=== PATIENT | female | born 1980 | race Caucasian/White ===

== ENCOUNTER 2019-11-19 20:01 | Emergency (ER) | payer MEDICAID, SELFPAY ==
[2019-11-19 20:03] VITALS: BP 132/102; PULSE 91; RESP 20; TEMP 36.7; O2SAT 98; BMI 33.8
--- NOTE | 2019-11-19 20:19 | XRR_ITS ---
PROCEDURE INFORMATION: Exam: XR Chest, 1 View Exam date and time: 11/19/2019 8:27 PM Age: 39 years old Clinical indication: Chest pain; Patient HX: PT C/O chest tightness, shooting pain to lt arm, headache; Additional info: Admission TECHNIQUE: Imaging protocol: XR of the chest Views: 1 view. COMPARISON: No relevant prior studies available. FINDINGS: Lungs: Unremarkable. No consolidation. Pleural space: Unremarkable. No pleural effusion. No pneumothorax. Heart/Mediastinum: Unremarkable. No cardiomegaly. Bones/joints: Unremarkable. XR/XR chest 1V portable [id number] IMPRESSION: No acute findings.
--- NOTE | 2019-11-19 20:19 | ECG_ITS ---
Measurements Intervals [place] Rate: 93 P: 38 IL: 146 QRS: 6 QRSD: 84 T: 39 QT: 366 QTc: 455 SINUS RHYTHM POSSIBLE ANTERIOR MYOCARDIAL INFARCTION [30 ms Q WAVE IN V3/V4, OR R < 0.2 mV IN V V4], PROBABLY OLD INTERPRETATION BASED ON A DEFAULT AGE OF 40 YEARS No previous ECG available for comparison Electronically Signed On 11-20-2019 9:24:12 OPHTHALMOLOGY TECHNICIAN by Rony Mayfield M.D. [email or web address]
--- NOTE | 2019-11-19 20:22 | W.ED.CHESTPA ---
HPI - Chest Pain General: Chief Complaint: Chest Pain Stated Complaint: CHEST TIGHTNESS/L ARM PAIN Time Seen by Provider: 11/19/19 20:14 History of Present Illness: HPI narrative: Patient complains about pain in upper left chest over the last couple hours denies any reflux heartburn or shortness of breath or diaphoresis. Patient just recently diagnosed with diabetes. Started metformin last week. MD complaint: chest pain Onset (ago): hour(s) Timing of current episode: constant Prior episodes: No Onset: during rest Pain location: left chest Pain radiation: left arm Quality: aching Relieving factors: nothing Context: recent illness Associated symptoms: Reports no associated symptoms; Deny abdominal pain, dyspnea, fever(s), nausea or vomiting Review of Systems Const: Denies: fever, chills or body aches Eyes: Denies: change in vision or blurry vision ENMT: Denies: throat pain or nasal congestion Card: Reports: chest pain; Denies: shortness of breath on exertion Resp: Denies: shortness of breath, productive cough or non-productive cough GI: Denies: abdominal pain, nausea or vomiting Musc: Denies: extremity pain Skin/Breast: Denies: rash Neuro: Denies: headache Psych: Denies: anxiety or depression Edd/Lymph: Denies: easy bruising PFSH ED PFSH: Statuses (acute, chronic, etc) shown below reflect problem list status as previously entered and may not be historically accurate Social History Smoking and tobacco status: never smoked Physical Exam Const: COMMON NORMALS: no apparent distress, average body habitus and oriented x3 HENMT: COMMON NORMALS: normocephalic HEAD & SCALP: normal to inspection and normocephalic FACE & SINUS: normal facial exam Eye: COMMON NORMALS: conjunctivae normal GENERAL EYE: normal appearance of both eyes CONJUNCTIVA: Yes conjunctivae normal Neck/C-Spine: COMMON NORMALS: no JVD Chest: COMMONS NORMALS: inspection of chest normal CHEST: Yes tenderness (I am able to reproduce the pain over the left substernal notch and into the left arm. With deep palpation) Resp: COMMON NORMALS: normal respiratory effort and clear to auscultation bilaterally AUSCULTATION: clear to auscultation bilaterally Cardio: COMMON NORMALS: no JVD, regular rate and regular rhythm RATE: regular rate RHYTHM: regular rhythm GI: COMMON NORMALS: normal to inspection, nondistended, normoactive bowel sounds Extremity: COMMON NORMALS: normal to inspection and full ROM Neuro: COMMON NORMALS: oriented x3 Course Vital Signs: Vital signs: Vital Signs Temperature 98.0 F 11/19/19 20:03 Pulse Rate 91 11/19/19 20:03 Respiratory Rate 20 H 11/19/19 20:03 Blood Pressure 132/102 11/19/19 20:03 Pulse Oximetry 98 11/19/19 20:03 MDM - Chest Pain EKG Data^: EKG 1: EKG interpretation date: 11/19/19 EKG interpretation time: 20:05 Interpretation: Rvwd by Dr. Gross. SR. IL 146ms, QRS 84ms, 93bpm Discharge Plan Discharge Prescriptions: No Action lamotrigine 150 mg Tablet 150 mg PO DAILY RF: 0 aripiprazole 5 mg Tablet 5 mg PO DAILY RF: 0 metformin 500 mg Tablet 500 mg PO BID RF: 0 Coding Level of Care Code ED Associate Java Developer for Chg Fwd Exam Problem Focused
[2019-11-19] MEDS: ketorolac 60 mg/2 mL INJ IM (20:36)
[2019-11-19 20:49] LABS: Basophils # 0.1 10^3/uL (0.0-0.1); Basophils % 0.7 %; Eosinophils # 0.2 10^3/uL (0.0-0.8); Eosinophils % 2.2 %; Hematocrit 38.6 % (37.0-47.0); Hemoglobin 12.4 g/dL (11.5-15.3); Lymphocytes # 2.6 10^3/uL (0.8-4.8); Lymphocytes % 31.6 %; Mean Corpuscular HGB Conc 32.1 g/dL (30.0-36.0); Mean Corpuscular Hemoglobin 27.4 pg (28.0-34.0); Mean Corpuscular Volume 85.2 fL (81-99); Monocytes # 0.5 10^3/uL (0.2-0.9); Monocytes % 5.8 %; Neutrophils # 4.8 10^3/uL (1.8-7.7); Neutrophils % 59.3 %; Nucleated Red Blood Cells % 0 %; Platelet Count 313 10^3/cmm (130-400); Red Blood Count 4.53 10^6/uL (4.1-5.3); Red Cell Distribution Width 13.2 % (12.1-15.1); White Blood Count 8.2 10^3/uL (4.0-10.0)
[2019-11-19 21:07] LABS: Alanine Aminotransferase 37 U/L (0-33); Albumin Level 4.5 g/dL (3.5-5.2); Alkaline Phosphatase 63 IU/L (35-105); Anion Gap 18.8 (5-19); Aspartate Amino Transferase 33 U/L (0-32); Blood Urea Nitrogen 10 mg/dL (6-20); Calcium 9.8 mg/Dl (8.6-10.0); Carbon Dioxide 23 mmol/L (22-29); Chloride 100 mmol/L (98-107); Globulin 2.9 g/dL (1.3-4.6); Glomerular Filtration Rate 112.5 mL/min (90-130); Glucose 121 mg/dL (74-109); Potassium 3.8 mmol/L (3.5-5.1); Sodium 138 mmol/L (136-145); Total Bilirubin 0.2 mg/dL (0.15-1.2); Total Protein 7.4 g/dL (6.6-8.7)
[2019-11-19 21:41] LABS: Troponin T (5th) Once 6 ng/mL (0-10)
[2019-11-19 23:00] VITALS: BP 103/64; PULSE 86; RESP 18; O2SAT 96
== END 2019-11-19 22:30 | disposition home or self-care (01) ==
PROVIDERS: Emergency Provider Nurse Practitioner Family; Family Provider Family Medicine
DX: R07.9 Chest pain, unspecified (principal); Z79.84 Long term (current) use of oral hypoglycemic drugs
CPT/HCPCS: 71045; 80053; 84484; 85025; 93005; 96372; 99281; J1885

== ENCOUNTER → 2019-12-05 07:52 | Outpatient (BNVA) | payer MEDICAID, SELFPAY | PROVIDERS: Family Provider Family Medicine; Visit Provider Nurse Practitioner Psychiatric/Mental Health | DX: F31.81 Bipolar II disorder (principal) | CPT/HCPCS: 99213 ==

== ENCOUNTER → 2020-02-02 07:33 | Outpatient (BNVA) | payer MEDICAID, SELFPAY | PROVIDERS: Family Provider Family Medicine; Visit Provider Nurse Practitioner Psychiatric/Mental Health | DX: F31.81 Bipolar II disorder (principal); F43.12 Post-traumatic stress disorder, chronic | CPT/HCPCS: 99213 ==

== ENCOUNTER → 2020-03-15 07:22 | Outpatient (BNVA) | payer MEDICAID, SELFPAY | PROVIDERS: Family Provider Family Medicine; Visit Provider Nurse Practitioner Psychiatric/Mental Health | DX: F31.81 Bipolar II disorder (principal) | CPT/HCPCS: 99212 ==

== ENCOUNTER → 2020-04-10 07:49 | Outpatient (BNVA) | payer BC, MEDICAID, SELFPAY | PROVIDERS: Family Provider Family Medicine; Visit Provider Nurse Practitioner Psychiatric/Mental Health | DX: F31.81 Bipolar II disorder (principal) | CPT/HCPCS: 99213 ==

== ENCOUNTER 2020-04-18 19:18 | Emergency (ER) | payer BC, MEDICAID, SELFPAY ==
[2020-04-18 19:28] VITALS: BP 150/97; PULSE 88; RESP 16; TEMP 36.7; O2SAT 97
--- NOTE | 2020-04-18 19:58 | ED_ITS ---
HPI - Headache General: Chief Complaint: Headache Stated Complaint: diabetic/headache Time Seen by Provider: 04/18/20 19:49 Source: patient Mode of arrival: ambulatory Limitations: no limitations History of Present Illness: HPI Narrative: Guerrero is a very nice 40-year-old female who comes in complaining of a headache that has been going on throughout the day. She is uncertain of how the headache started but it woke up this morning and has been present throughout the day. It is not incapacitated her and she has been able to carry out her activities of daily living without any difficulty. Headache is been more annoying than anything. She describes the pain as a dull ache located in the forehead and bitemporal areas. She has no associated nausea or vomiting. She did try some ibuprofen and Aleve for this but nothing seems to make it better. Bright lights and having to move very quickly does make it worse. She denies any neck pain or stiffness, she denies fevers and chills and she is had no nausea or vomiting. She has a history of migraines and she states this somewhat feels like that but is also a little different. She has had worse migraines for this as far as pain goes in the past. Associated symptoms: Deny chest pain, confusion, diaphoresis, fever(s), lightheadedness, malaise, nausea, pre-syncope, rash, syncope or vomiting Review of Systems Const: Denies: fever(s), chills, body aches, fatigue, malaise or diaphoresis Eyes: Denies: change in vision, blurry vision, blind spots, photophobia, eye discharge or eye redness ENMT: Denies: throat pain, odynophagia, hoarseness, swelling of lips/tongue, oral sores, ear or mastoid pain, ear discharge, change in hearing or nasal discharge Card: Denies: chest pain, palpitations, irregular heart rhythm, edema, lightheadedness, syncope, pre-syncope, dyspnea on exertion or orthopnea Resp: Denies: dyspnea, productive cough, non-productive cough, wheezing, hemoptysis or chest congestion GI: Denies: abdominal pain, nausea, vomiting, hematemesis, coffee ground emesis, heartburn, diarrhea, constipation, GI cramping, hematochezia or melena : Denies: flank pain, dysuria, urinary frequency, urinary urgency or hematuria Musc: Denies: neck pain, back pain, extremity pain, extremity swelling, joint pain, joint swelling, joint redness, joint warmth or joint stiffness Skin/Breast: Denies: rash, pruritus, erythema, skin tenderness or jaundice Neuro: Reports: headache(s); Denies: numbness in extremities, weakness in extremities, sensory changes, lack of coordination, difficulty walking, dizziness, vertigo, confusion, Slurred speech present or seizure-like activity Edd/Lymph: Denies: easy bruising, easy bleeding, petechiae, purpura or enlarged lymph nodes All/Imm: Denies: urticaria, throat swelling, tongue swelling, facial swelling or acute wheezing PFSH ED PFSH: Medical History (Updated 04/18/20 @ 22:10 by Belkis Gross) Bipolar II disorder See subjective information below. DM type 2 (diabetes mellitus, type 2) Laura filter in place Migraines Pulmonary embolism Social History Smoking and tobacco status: never smoked Physical Exam Const: COMMON NORMALS: no acute distress, patient oriented x3, no limitations, healthy appearing and well nourished GENERAL APPEARANCE: cooperative, well kempt and well developed HENMT: COMMON NORMALS: normocephalic, atraumatic, external ears normal, EAC's normal and Normal external nose present HEAD & SCALP: normal to inspection, normocephalic and atraumatic FACE & SINUS: normal facial exam and face symmetric NOSE: Normal external nose present and Normal nares present EXTERNAL EAR: Yes external ears normal EXTERNAL AUDITORY CANAL: EAC's normal MOUTH: Normal oral and palatal mucosa present, lip normal and tongue normal Eye: COMMON NORMALS: Equal, round and reactive pupils present and conjunctivae normal GENERAL EYE: appearance normal, both eyes and all related structures ALIGNMENT: Yes alignment normal PERIORBITAL: periorbital findings normal EYELID: eyelids normal CONJUNCTIVA: Yes conjunctivae normal SCLERA: sclerae normal PUPIL: Yes Equal, round and reactive pupils present Neck/C-Spine: COMMON NORMALS: full ROM, no lymphadenopathy, supple, no meningeal signs and no JVD GENERAL: Yes normal visual inspection and Yes trachea midline Chest: COMMONS NORMALS: normal inspection of the chest and normal palpation of entire chest wall Resp: COMMON NORMALS: normal respiratory effort, No retractions and No use of accessory muscles EFFORT & INSPECTION: Yes able to speak in complete sentences and Yes symmetric chest movement AUSCULTATION: no crackles, no rale s, no rhonchi and no wheezes Cardio: COMMON NORMALS: no JVD, regular rate, regular rhythm, S1 normal heart sound present and S2 normal heart sound present RATE: regular rate RHYTHM: regular rhythm HEART SOUNDS: S1 normal heart sound present, S2 normal heart sound present, no click, no gallops, no murmurs, no rubs and abnormal split S2 GI: COMMON NORMALS: Soft to palpation and No hepatosplenomegaly present PALPATION: Yes Soft to palpation, No Tenderness to palpation present (GI), No Guarding due to palpation present (GI), No Rigid due to palpation, Yes No hepatosplenomegaly present, No Hernia present, No Palpable mass present and No Pulsatile mass present : COMMON NORMALS: Yes no CVA tenderness BLADDER/KIDNEY EXAM: Yes no CVA tenderness EXTERNAL FEMALE EXAM: No Hernia present Back/Pelvis: COMMON NORMALS: no CVA tenderness, thoracic and lumbar spine normal to inspection, no thoracic nor lumbar tenderness and thoraco-lumbar ROM normal Extremity: COMMON NORMALS: normal to inspection, full ROM, capillary refill normal, no joint enlargement, no clubbing, cyanosis or edema and no calf tendern ess Neuro: COMMON NORMALS: patient oriented x3, CN's II-XII intact bilaterally, moves all extremities, no focal motor deficits and no sensory deficits noted MENINGEAL SIGNS: Yes no meningeal signs SPEECH: speech normal Psych: COMMON NORMALS: mental status grossly normal, Normal thought process present, cooperative, normal affect, speech normal and activity/motor behavior normal APPEARANCE: Yes well kempt SPEECH: Yes normal speech THOUGHT PROCESS: Normal thought process present Skin: COMMON NORMALS: no rashes or lesions noted, turgor normal, no jaundice, no petechiae and no mottling GENERAL SKIN EXAM: no rashes or lesions noted and turgor normal Course Vital Signs: Vital signs: Vital Signs Temperature 98.0 F 04/18/20 19:28 Pulse Rate 88 04/18/20 19:28 Respiratory Rate 16 04/18/20 19:28 Blood Pressure 116/85 04/18/20 22:40 Pulse Oximetry 97 04/18/20 22:40 MDM - Headache MDM Narrative: Medical decision making narrative: Sukhdev Masters is a nice 40-year-old female who comes in complaining of a headache that is moderate in nature but a change for her typical headache pattern. She shows no sign of meningitis by history. Her history does not suggest subarachnoid hemorrhage or meningitis. Because the patient has had a change in her headache pattern no and it is persisted for this long I will proceed with a head CT and check routine labs. She does seem more concerned about her blood sugar and her diabetes than the headache itself. 2211 -patient is feeling much better and is ready to go home. Her headache is gone or she says down to a 1 or 2. I will give her 1 dose of Toradol to help eliminate her headache. I see no sign of DKA, meningitis, subarachnoid hemorrhage or pseudotumor cerebri. The patient declines any further work-up or care. We will go ahead and discharge her home and have her follow-up with her regular doctor. I believe this headache is likely a migraine equivalent. Lab Data: Attestation: I reviewed the patient's lab results. Labs: Lab Results 04/18/20 04/18/20 04/18/20 Range/Units 20:07 20:09 20:40 WBC 7.7 (4.0-10.0) 10^3/ uL RBC 4.50 (4.1-5.3) 10^6/u L Hgb 12.6 (11.5-15.3) g/dL Hct 39.9 (37.0-47.0) % MCV 88.7 (81-99) fL MCH 28.0 (28.0-34.0) pg MCHC 31.6 (30.0-36.0) g/dL RDW 18.9 H (12.1-15.1) % Plt Count 295 (130-400) 10^3/c mm MPV 10.2 (7.4-10.4) fL Neut % (Auto) 59.7 % Lymph % (Auto) 29.9 % [place] % (Auto) 6.1 % Eos % (Auto) 2.5 % Baso % (Auto) 0.9 % Neut # (Auto) 4.6 (1.8-7.7) 10^3/u L Lymph # (Auto) 2.3 (0.8-4.8) 10^3/u L [place] # (Auto) 0.5 (0.2-0.9) 10^3/u L Eos # (Auto) 0.2 (0.0-0.8) 10^3/u L Baso # (Auto) 0.1 (0.0-0.1) 10^3/u L Nucleated RBC % (a uto) 0 % Nucleated RBCs # 0.0 /100WBC Sodium 138 (136-145) mmol/L Potassium 4.0 (3.5-5.1) mmol/L Chloride 100 (98-107) mmol/L Carbon Dioxide 23 (22-29) mmol/L Anion Gap 19.0 (5-19) BUN 11 (6-20) mg/dL Creatinine 0.6 (0.5-0.9) mg/dL GFR Calculation 111.9 (90-130) mL/min Glucose 191 H (65-115) mg/dL POC Glucose 215 (70-110) mg/dL Calculated Osmolal ity 287 (285-295) mOsm/k g Calcium 10.0 (8.5-10.5) mg/dL Magnesium 2.1 (1.7-2.3) mg/dL Total Bilirubin 0.2 (0.15-1.2) mg/dL AST 5 (0-32) U/L ALT < 5 (0-33) U/L Alkaline Phosphata se 56 (35-105) IU/L Total Protein 7.1 (6.6-8.7) g/dL Albumin 4.6 (3.5-5.2) g/dL Globulin 2.5 (1.3-4.6) g/dL Serum Ketones (Negative) 04/18/20 Range/Units 20:40 WBC (4.0-10.0) 10^3/ uL RBC (4.1-5.3) 10^6/u L Hgb (11.5-15.3) g/dL Hct (37.0-47.0) % MCV (81-99) fL MCH (28.0-34.0) pg MCHC (30.0-36.0) g/dL RDW (12.1-15.1) % Plt Count (130-400) 10^3/c mm MPV (7.4-10.4) fL Neut % (Auto) % Lymph % (Auto) % [place] % (Auto) % Eos % (Auto) % Baso % (Auto) % Neut # (Auto) (1.8-7.7) 10^3/u L Lymph # (Auto) (0.8-4.8) 10^3/u L [place] # (Auto) (0.2-0.9) 10^3/u L Eos # (Auto) (0.0-0.8) 10^3/u L Baso # (Auto) (0.0-0.1) 10^3/u L Nucleated RBC % (a uto) % Nucleated RBCs # /100WBC Sodium (136-145) mmol/L Potassium (3.5-5.1) mmol/L Chloride (98-107) mmol/L Carbon Dioxide (22-29) mmol/L Anion Gap (5-19) BUN (6-20) mg/dL Creatinine (0.5-0.9) mg/dL GFR Calculation (90-130) mL/min Glucose (65-115) mg/dL POC Glucose (70-110) mg/dL Calculated Osmolal ity (285-295) mOsm/k g Calcium (8.5-10.5) mg/dL Magnesium (1.7-2.3) mg/dL Total Bilirubin (0.15-1.2) mg/dL AST (0-32) U/L ALT (0-33) U/L Alkaline Phosphata se (35-105) IU/L Total Protein (6.6-8.7) g/dL Albumin (3.5-5.2) g/dL Globulin (1.3-4.6) g/dL Serum Ketones Negative (Negative) Imaging Data^: CT Head: Radiologist's impression: [address] [address] [address] Scan Report Signed Patient: Guerrero Pugh Unit #: [id number] : 1980 Age/Sex: 40 / F ADM Date: 04/18/20 Loc: ER Room/Bed: Attending Dr: Ordering Provider/Ordering MD: Belkis Gross DO Date of Service: 04/18/20 Procedure(s): CT head wo con* [id number] Accession Number(s): [id number] Report Number: [id number] PROCEDURE INFORMATION: Exam: CT Head Without Contrast Exam date and time: 04/18/2020 8:06 PM Age: 40 years old Clinical indication: Pain; Headache not specified; Patient HX: Blurry vision, dizzy TECHNIQUE: Imaging protocol: Computed tomography of the head without contrast. Radiation optimization: All CT scans at this facility use at least one of these dose optimization techniques: automated exposure control; mA and/or kV adjustment per patient size (includes targeted exams where dose is matched to clinical indication); or iterative reconstruction. COMPARISON: No relevant prior studies available. RADIATION DOSE METRICS: Total DLP (mGy-cm): 757.89 FINDINGS: Brain: Normal. No hemorrhage or CT evidence of acute infarction is seen. No mass effect. Ventricles: Normal. No ventriculomegaly. Bones/joints: Unremarkable. No acute fracture. Sinuses: Visualized sinuses are unremarkable. No fluid levels. Mastoid air cells: Visualized mastoid air cells are well aerated. Soft tissues: Unremarkable. CT/CT head wo con* [id number] IMPRESSION: No acute intracranial abnormality. Radiation Dose CTDIVOL = (mGy): DLP = 757.89 (mGy-cm) Dictated By: Oneal Connell MD Signed By: Oneal Connell MD Signed Date/Time: 04/18/202047 DD/ 45 Discharge Plan Discharge Patient Disposition: Home, Self-Care Clinical Impression: Headache Qualifiers: Headache type: unspecified Headache chronicity pattern: acute headache Intractability: not intractable Qualified Code(s): R51 - Headache Condition: Stable Prescriptions: No Action melatonin 10 mg tablet 5 mg PO BEDTIME RF: 0 lamotrigine 200 mg tablet 200 mg PO DAILY Qty: 30 RF: 0 trazodone 50 mg tablet 50 mg PO DAILY PRN (Reason: insomnia) Qty: 30 RF: 0 metformin 500 mg Tablet 500 mg PO BID RF: 0 Aleve 220 mg Tablet 440 mg PO PRN RF: 0 ibuprofen 200 mg Tablet 800 mg PO PRN RF: 0 Discharge Orders: Discharge Order (Routine); Ordered 04/18/20 Ordered By: Belkis Gross Referrals: Anibal Fried DO [Primary Care Provider] - 1-3 days Discharge Diet: Advance as tolerated Discharge Activity: Increase activity as tolerated Patient Instructions: Acute Headache (ED) Activity Restrictions/Additional Instructions: Please return to the ER immediately for any of the signs or symptoms listed on your discharge instruction sheets, worsening/changing of your symptoms, you are not getting better as quickly as expected, or for ANY other cause or concerns. Please return to the ER if your headache worsens, you develop fever, began to vo miguel, your blood sugar goes back out of control, or for any other cause for concern. Discharge Date/Time: 04/18/20 22:49 Coding Level of Care Code ED Elevator Constructor for Chg Fwd Exam Comprehensive
--- NOTE | 2020-04-18 20:03 | CTR_ITS ---
PROCEDURE INFORMATION: Exam: CT Head Without Contrast Exam date and time: 04/18/2020 8:06 PM Age: 40 years old Clinical indication: Pain; Headache not specified; Patient HX: Blurry vision, dizzy TECHNIQUE: Imaging protocol: Computed tomography of the head without contrast. Radiation optimization: All CT scans at this facility use at least one of these dose optimization techniques: automated exposure control; mA and/or kV adjustment per patient size (includes targeted exams where dose is matched to clinical indication); or iterative reconstruction. COMPARISON: No relevant prior studies available. RADIATION DOSE METRICS: Total DLP (mGy-cm): 757.89 FINDINGS: Brain: Normal. No hemorrhage or CT evidence of acute infarction is seen. No mass effect. Ventricles: Normal. No ventriculomegaly. Bones/joints: Unremarkable. No acute fracture. Sinuses: Visualized sinuses are unremarkable. No fluid levels. Mastoid air cells: Visualized mastoid air cells are well aerated. Soft tissues: Unremarkable. CT/CT head wo con* [id number] IMPRESSION: No acute intracranial abnormality. Radiation Dose CTDIVOL = (mGy): DLP = 757.89 (mGy-cm)
--- NOTE | 2020-04-18 20:08 | PC.NURSE ---
Blood glucose is 215. nurse is aware
[2020-04-18 20:11] LABS: Glucose Point of Care 215 mg/dL (70-110)
[2020-04-18 20:13] VITALS: BP 130/71; O2SAT 97
[2020-04-18 20:24] LABS: Basophils # 0.1 10^3/uL (0.0-0.1); Basophils % 0.9 %; Eosinophils # 0.2 10^3/uL (0.0-0.8); Eosinophils % 2.5 %; Hematocrit 39.9 % (37.0-47.0); Hemoglobin 12.6 g/dL (11.5-15.3); Lymphocytes # 2.3 10^3/uL (0.8-4.8); Lymphocytes % 29.9 %; Mean Corpuscular HGB Conc 31.6 g/dL (30.0-36.0); Mean Corpuscular Volume 88.7 fL (81-99); Mean Platelet Volume 10.2 fL (7.4-10.4); Monocytes # 0.5 10^3/uL (0.2-0.9); Monocytes % 6.1 %; Neutrophils # 4.6 10^3/uL (1.8-7.7); Neutrophils % 59.7 %; Nucleated Red Blood Cells % 0 %; Platelet Count 295 10^3/cmm (130-400); Red Cell Distribution Width 18.9 % (12.1-15.1); White Blood Count 7.7 10^3/uL (4.0-10.0)
[2020-04-18] MEDS: diphenhydrAMINE 50 mg/mL SDV 1mL 12.5 MG IVP (20:25)
[2020-04-18] MEDS: metoclopramide 5 mg/mL SDV 2 mL 10 MG IV (20:26)
[2020-04-18] MEDS: sodium chloride 0.9% 1,000 ML 999 ML IV (20:26)
[2020-04-18 21:15] LABS: Ketone (Acetest) Serum Negative (Negative)
[2020-04-18 21:20] LABS: Albumin Level 4.6 g/dL (3.5-5.2); Alkaline Phosphatase 56 IU/L (35-105); Blood Urea Nitrogen 11 mg/dL (6-20); Carbon Dioxide 23 mmol/L (22-29); Chloride 100 mmol/L (98-107); Globulin 2.5 g/dL (1.3-4.6); Glomerular Filtration Rate 111.9 mL/min (90-130); Glucose 191 mg/dL (65-115); Magnesium 2.1 mg/dL (1.7-2.3); Osmolality Calculated 287 mOsm/kg (285-295); Sodium 138 mmol/L (136-145); Total Bilirubin 0.2 mg/dL (0.15-1.2); Total Protein 7.1 g/dL (6.6-8.7)
[2020-04-18 21:34] LABS: Alanine Aminotransferase < 5 U/L (0-33); Aspartate Amino Transferase 5 U/L (0-32)
[2020-04-18 22:20] VITALS: BP 114/91; O2SAT 97
[2020-04-18] MEDS: ketorolac 30 mg/mL INJ 10 MG IVP (22:29)
[2020-04-18 22:40] VITALS: BP 116/85; O2SAT 97
== END 2020-04-18 22:49 | disposition home or self-care (01) ==
PROVIDERS: Emergency Provider Emergency Medicine; PCP Family Medicine
DX: R51 Headache (principal); E11.9 Type 2 diabetes mellitus without complications
CPT/HCPCS: 12345; 36415; 36416; 70450; 80053; 82009; 82962; 83735; 85025; 96374; 96375; 99283; J0131; J1200; J1885; J2765; J7030

== ENCOUNTER → 2020-05-08 08:04 | Outpatient (BNVA) | payer MEDICAID, SELFPAY | PROVIDERS: PCP Family Medicine; Visit Provider Nurse Practitioner Psychiatric/Mental Health | DX: F31.81 Bipolar II disorder (principal) | CPT/HCPCS: 99213 ==

== ENCOUNTER → 2020-06-05 07:49 | Outpatient (BNVA) | payer BC, MEDICAID, SELFPAY | PROVIDERS: PCP Family Medicine; Visit Provider Nurse Practitioner Psychiatric/Mental Health | DX: F31.81 Bipolar II disorder (principal) | CPT/HCPCS: 99212 ==

== ENCOUNTER → 2020-08-11 17:10 | Outpatient (BNVA) | payer BC, MEDICAID, SELFPAY | PROVIDERS: PCP Family Medicine; Visit Provider Nurse Practitioner Family | DX: Z11.59 Encounter for screening for other viral diseases (principal) | CPT/HCPCS: 87635 ==

== ENCOUNTER → 2020-08-14 07:46 | Outpatient (BNVA) | payer BC, MEDICAID, SELFPAY | PROVIDERS: PCP Family Medicine; Visit Provider Nurse Practitioner Psychiatric/Mental Health | DX: F31.81 Bipolar II disorder (principal); E11.9 Type 2 diabetes mellitus without complications | CPT/HCPCS: 99212 ==

== ENCOUNTER → 2020-08-30 09:32 | Outpatient (BNVA) | payer BC, MEDICAID, SELFPAY | PROVIDERS: PCP Family Medicine; Visit Provider Nurse Practitioner Psychiatric/Mental Health | DX: F31.81 Bipolar II disorder (principal); E11.9 Type 2 diabetes mellitus without complications | CPT/HCPCS: G0463 ==

== ENCOUNTER → 2020-09-20 08:15 | Outpatient (BNVA) | payer BC, MEDICAID, SELFPAY | PROVIDERS: PCP Family Medicine; Visit Provider Nurse Practitioner Psychiatric/Mental Health | DX: F31.81 Bipolar II disorder (principal); E11.9 Type 2 diabetes mellitus without complications | CPT/HCPCS: 99212 ==

== ENCOUNTER → 2020-12-10 08:03 | Outpatient (BNVA) | payer BC, MEDICAID, SELFPAY | PROVIDERS: PCP Family Medicine; Visit Provider Nurse Practitioner Psychiatric/Mental Health | DX: F31.81 Bipolar II disorder (principal); G43.909 Migraine, unspecified, not intractable, without status migrainosus | CPT/HCPCS: 99214 ==

== ENCOUNTER 2020-12-22 17:33 | Emergency (ER) | payer BC, MEDICAID, SELFPAY ==
[2020-12-22 17:38] VITALS: BP 147/91; PULSE 101; RESP 16; TEMP 37.6; O2SAT 99; BMI 30.4
[2020-12-22 17:41] VITALS: BP 147/91; PULSE 101; RESP 20; TEMP 37.6; O2SAT 99
--- NOTE | 2020-12-22 17:45 | W.ED.LOWEXIN ---
HPI - Extremity Injury (Lower) General: Chief Complaint: Extremity Injury, Lower Stated Complaint: FELL, LOWER EXTREMITY INJURIES Time Seen by Provider: 12/22/20 17:37 Source: patient Mode of arrival: wheelchair Limitations: no limitations History of Present Illness: HPI Narrative: Patient is a 40-year-old female who presents to ED today with a complaint of left lower leg pain. Patient tells me her daughter was cleaning out the air vent filter and patient states that she fell over the metal grate cover. Patient states she twisted her ankle/leg when she fell. No other injury sustained during the fall. Patient tells me she is not able to bear weight on her left leg. She is not complaining of numbness, tingling, loss of sensation. Has not noticed any color/temp changes. MD complaint: leg injury Onset (ago): hour(s) Injury: Left: ankle (just above ankle mortise) Place: home Severity: moderate Relieving factors: immobilization Exacerbating factors: weight bearing, movement and palpation Context: fall Associated symptoms: Reports inability to bear weight Other symptoms: none Review of Systems Musc: Reports: extremity pain (L lower leg pain); Denies: neck pain, back pain, joint swelling, joint redness or joint warmth Neuro: Denies: numbness in extremities, weakness in extremities or sensory changes PFS ED PFSH: Medical History (Updated 12/22/20 @ 18:16 by TEREZA Brown) Bipolar II disorder See subjective information below. DM type 2 (diabetes mellitus, type 2) [place] filter in place Migraines Pulmonary embolism Social History Smoking and tobacco status: never smoked Female Reproductive History: Date of last menstrual period: 11/15/20 Physical Exam Const: COMMON NORMALS: no acute distress, patient oriented x3, no limitations and alert GENERAL APPEARANCE: cooperative ORIENTATION/CONSCIOUSNESS: Yes awake, Yes oriented to person, Yes oriented to place and Yes oriented to time Extremity: COMMON NORMALS: normal to inspection OTHER: TTP to anterior L lower leg just above ankle mortise; mild abrasion and swelling noted; no pain directly to ankle joint or to L foot; no knee pain; NV intact-DP/PT pulses intact Neuro: COMMON NORMALS: patient oriented x3, moves all extremities, no focal motor deficits and no sensory deficits noted SENSORIUM/ORIENTATION: Yes alert, Yes oriented to person, Yes oriented to place and Yes oriented to time GAIT: Yes Unable to assess gait Skin: NARRATIVE SKIN EXAM: small abrasion to L anterior lower leg and L heel Course Vital Signs: Vital signs: Vital Signs Temperature 99.7 F H 12/22/20 17:41 Pulse Rate 101 H 12/22/20 17:41 Respiratory Rate 20 H 12/22/20 17:41 Blood Pressure 147/91 12/22/20 17:41 Pulse Oximetry 99 12/22/20 17:41 MDM - Extremity Injury (Lower) MDM Narrative: Medical decision making narrative: Patient has no pain to knee or ankle joint. She appears to have an isolated non-displaced distal tibial shaft fracture. She will be placed in long leg posterior splint, crutches/non-weight bearing, and will be given pain medications. Information placed to get patient appointment with orthopedics. Extremity NV intact. Return to ED precautions given. Imaging Data^: XR L ankle/tib/fib: My impression: transverse non-displaced distal tibial shaft fracture Discharge Plan Discharge Patient Disposition: Home Clinical Impression: Closed fracture of shaft of left tibia Qualifiers: Encounter type: initial encounter Fracture morphology: transverse Fracture alignment: nondisplaced Qualified Code(s): S82.225A - Nondisplaced transverse fracture of shaft of left tibia, initial encounter for closed fracture Condition: Stable Prescriptions: New hydrocodone-acetaminophen 5-325 mg tablet 1 tab PO Q6H PRN (Reason: pain) Qty: 20 RF: 0 No Action trazodone 50 mg tablet 50 mg PO .Nightly PRN (Reason: insomnia) Qty: 30 RF: 1 bupropion HCl [Wellbutrin XL] 300 mg tablet extended release 24 hr 300 mg PO QAM Qty: 30 RF: 1 lamotrigine 100 mg tablet 100 mg PO .q am Qty: 30 RF: 1 lamotrigine 150 mg tablet 150 mg PO .q hs Qty: 30 RF: 1 melatonin 10 mg tablet 5 mg PO BEDTIME RF: 0 metformin 500 mg tablet 1,000 mg PO BID RF: 0 Aleve 220 mg Tablet 440 mg PO PRN RF: 0 ibuprofen 200 mg Tablet 800 mg PO PRN RF: 0 Discharge Orders: Discharge ED (Routine); Ordered 12/22/20 Ordered By: Mae Salgado Referrals: Anibal Fried DO [Primary Care Provider] - Patient Instructions: Leg Fracture (ED), Opioid Safety Activity Restrictions/Additional Instructions: [facility] is committed to fighting the nationwide opiate epidemic. We are providing ALL patients with information regarding opiate safety. If you received opiate pain medication during your stay or if you received a prescription for opiate pain medication-please review this handout. If not, you may disregard. Thank you. As we discussed you need to be non-weightbearing on the extremity. You need to elevate and ice the extremity as much as possible to help with swelling. Case management should contact you early next week to set you up with your orthopedic follow-up appointment. You need to return to the emergency department for severe/uncontrollable pain, numbness or loss of sensation to your leg, cool/paleness to your extremity, or any other concerns you may have. 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
--- NOTE | 2020-12-22 17:51 | XRR_ITS ---
PROCEDURE INFORMATION: Exam: XR Left Ankle Exam date and time: 12/22/2020 5:52 PM Age: 40 years old Clinical indication: Injury or trauma; Fall; Blunt trauma; Ankle; Left; Additional info: Fall/twisting/pain TECHNIQUE: Imaging protocol: XR Left ankle. Views: 3 or more views. COMPARISON: No relevant prior studies available. FINDINGS: Bones/joints: There is nondisplaced transverse fracture of the distal left tibial diaphysis.. Fibula is intact. Ankle joint is intact. No abnormality is seen in the talar dome. Soft tissues: There is mild soft tissue swelling. XR/XR ankle LT min 3V* [id number] IMPRESSION: Nondisplaced transverse fracture of the distal left tibia.
[2020-12-22] MEDS: HYDROcodone-acetaminophen 5-325 mg Tablet 3 TAB PO (18:46)
[2020-12-22 18:51] VITALS: PULSE 94; RESP 18; O2SAT 98
--- NOTE | 2020-12-24 09:22 | DCPLANNER ---
informatics manager had message to schedule a follow up appointment for patient with ortho. informatics manager called the ortho clinic, spoke with Grace, gave clinic patients information. informatics manager was told that patients information would be printed and reviewed. Clinic will call patient with appointment information.
--- NOTE | 2020-12-25 07:43 | DCPLANNER ---
Patient has a follow up appointment scheduled for Monday, December 28, 2020 at 9:[address] Patiño at [facility]. Clinic will call patient with appointment information.
--- NOTE | 2021-01-03 08:18 | DCPLANNER ---
Patient had a follow up appointment scheduled for 12.28.[address] Patiño at [facility] - patient did attend appointment.
== END 2020-12-22 18:54 | disposition home or self-care (01) ==
PROVIDERS: Emergency Provider Physician Assistant; PCP Family Medicine
DX: S82.225A Nondisplaced transverse fracture of shaft of left tibia, initial encounter for closed fracture (principal); E11.9 Type 2 diabetes mellitus without complications; Z79.84 Long term (current) use of oral hypoglycemic drugs; W01.0XXA Fall on same level from slipping, tripping and stumbling without subsequent striking against object, initial encounter
CPT/HCPCS: 29505; 73610; 99283; E0114

== ENCOUNTER 2020-12-28 09:21 | Outpatient (CLI) | payer BC, SELFPAY | END 2020-12-28 09:22 | disposition home or self-care (01) | LOC: SPT 09:22 | PROVIDERS: PCP Family Medicine; Visit Provider Orthopaedic Surgery | DX: Z46.89 Encounter for fitting and adjustment of other specified devices (principal); S82.225D Nondisplaced transverse fracture of shaft of left tibia, subsequent encounter for closed fracture with routine healing; X58.XXXD Exposure to other specified factors, subsequent encounter | CPT/HCPCS: 97760; L4361 ==

== ENCOUNTER → 2021-01-14 07:38 | Outpatient (BNVA) | payer BC, SELFPAY | PROVIDERS: PCP Family Medicine; Visit Provider Nurse Practitioner Psychiatric/Mental Health | DX: F31.81 Bipolar II disorder (principal); G43.909 Migraine, unspecified, not intractable, without status migrainosus | CPT/HCPCS: 99213 ==

== ENCOUNTER → 2021-01-24 11:33 | Outpatient (BNVA) | payer BC, SELFPAY | PROVIDERS: PCP Family Medicine; Visit Provider Orthopaedic Surgery | DX: S82.225A Nondisplaced transverse fracture of shaft of left tibia, initial encounter for closed fracture (principal); X58.XXXA Exposure to other specified factors, initial encounter | CPT/HCPCS: 73610; 87635 ==

== ENCOUNTER 2021-01-28 09:52 | Day surgery (SDC) | payer BC, SELFPAY ==
[2021-01-25 16:34] VITALS: BMI 30.2
[2021-01-28] VITALS (12 sets, daily range): BP systolic 136–166; BP diastolic 92–109; PULSE 80–92; RESP 18–20; TEMP 36.8–37.4; O2SAT 95–99
--- NOTE | 2021-01-28 | XR_ITS ---
WS: [id number] C-ARM RADIOGRAPHS LEFT TIBIA FIBULA; 5 IMAGES HISTORY: orif tib fib COMPARISON: 01/24/2021 Intraoperative imaging during fixation of the distal tibial fracture. Long intramedullary elzbieta with pr oximal and distal locking screws has been placed in good position. Fracture is normally aligned. XR/XR tibia fibula LT 2V [id number] IMPRESSION: Intraoperative fixation distal tibial fracture in good alignment.
--- NOTE | 2021-01-28 | SCC_ITS ---
Procedure Done: IM Nail Left Tibia 135.3 seconds of fluoroscopic guidance, for a cumulative dose of 3.42 mGy, was provided to Dr. Patiño by the radiology department. C-arm images of the left tibia were saved for the patient's permanent record. [facility]
[2021-01-28 10:32] LABS: Glucose Point of Care 121 mg/dL (70-110)
[2021-01-28 10:38] LABS: OR HCG Qualitative Urine Negative (Negative)
[2021-01-28] MEDS: sodium chloride 0.9% 1,000 ML 30 ML IV (10:44)
--- NOTE | 2021-01-28 10:46 | W.PM.OPSUD ---
Surgery/Procedure H&P Update DATE OF PROCEDURE: January 28, 2021 DATE H&P PERFORMED: 01/25/21 H&P UPDATE INFORMATION: I have reviewed H&P completed within last 30 days, I have examined patient prior to procedure and No changes to prior documentation PREOP DIAGNOSIS: left tibia fracture PLANNED PROCEDURE: Operation Date: 01/28/21 11:55 Proposed Procedures p IM nail Fibula [id number] 07707 S82.202(Left) - Samuel Patiño DO s Osteotomy fibula(Not Applicable) - Samuel Patiño DO
--- NOTE | 2021-01-28 10:53 | ANES.PREANE2 ---
Pre-Anesthetic Assessment Pre-Anesthetic Assessment: Height/Weight: Height 1.55 m Weight 72.575 kg Temp Pulse Resp BP Pulse Ox 99.3 F 92 18 142/95 98 01/28/21 10:40 01/28/21 10:40 01/28/21 10:40 01/28/21 10:40 01/28/21 10:40 Preop Diagnosis: left tibia fracture Proposed Procedure: Operation Date: 01/28/21 11:55 Proposed Procedures p IM nail Fibula [id number] 87424 S82.202(Left) - Samuel Patiño DO s Osteotomy fibula(Not Applicable) - Samuel Patiño, Last intake: Intake Last Liquid Date 01/27/21 Last Liquid Time 20:00 Last Solid Date 01/27/21 Last Solid Time 18:00 Social: Social History: No alcohol and No tobacco Exam: Pre-Anes Outpt Exam: alert, oriented x 3, clear to auscultation bilaterally and regular rate & rhythm Airway: Submandibular: WNL Cervical ROM: WNL MP: 3 Dentition: Chipped Pulmonary: Pulmonary: None reported CV/HEM: Comments: PE POST OP CS AND TUBAL : Comments: KIDNEY STONES Hepatic: Hepatic: None reported GI: GI: None reported Metabolic: Metabolic: DM and Morbid obesity Musc/skel: Musc/skel: None reported Neuropsych: Neuropsych: Bipolar Anesthetic Plan: Anesthesia: Anesthesia Evaluation and General Risk of > 500 ml blood loss (7ml/kg in children): No Meds/Allergies Current Medications: Current Medications Generic Name Dose Route Start Last Admin Trade Name Freq PRN Reason Stop Dose Admin Sodium Chloride 1,000 mls @ 30 ml s/hr 01/28/21 10:00 01/28/21 10:44 Sodium Chloride 0.9% IV 01/29/21 09:59 30 mls/hr .Q24H LULÚ Administration PFSH Anesthesia PFSH: Medical History Bipolar II disorder See subjective information below. DM type 2 (diabetes mellitus, type 2) [place] filter in place Migraines Pulmonary embolism Social History Smoking and tobacco status: never smoked Female Reproductive History: Date of last menstrual period: 11/15/20 Data Anesthesia Other Labs: Laboratory Results - last 48 hr 01/28/21 01/28/21 10:29 10:36 POC Glucose 121 H Urine HCG, Qual Negative Cardiac Studies: No Data to Display
--- NOTE | 2021-01-28 11:25 | P.ANESUD_ITS ---
Pre-Anesthetic Update Pre-Anesthetic Assessment: Date of Surgery/Procedure: 01/28/21 Preop Brandi gnosis: left tibia fracture Proposed Procedure: Operation Date: 01/28/21 11:55 Proposed Procedures p IM nail Fibula [id number] 66080 S82.202(Left) - Samuel Patiño DO s Osteotomy fibula(Not Applicable) - Samuel Patiño DO Last Intake: Intake Last Liquid Date 01/27/21 Last Liquid Time 20:00 Last Solid Date 01/27/21 Last Solid Time 18:00 Labs Last 48hrs: Laboratory Results - last 48 hr 01/28/21 01/28/21 10:29 10:36 POC Glucose 121 H Urine HCG, Qual Negative Vitals: Temperature 99.3 F 01/28/21 10:40 Pulse Rate 92 01/28/21 10:40 Respiratory Rate 18 01/28/21 10:40 Blood Pressure 142/95 01/28/21 10:40 Blood Pressure Cassandra n 110 01/28/21 10:40 Pulse Oximetry 98 01/28/21 10:40 Oxygen Delivery Me thod 01/28/21 10:42 Other Pertinent Information: Other Pertinent Information: ASA 2 Cardiac Studies: No Data to Display
[2021-01-28] MEDS: morphine 4 mg/mL SDV 1 mL 2 MG IVP (12:31)
--- NOTE | 2021-01-28 12:31 | P.OP_ITS ---
Operative Report Date of procedure: January 28, 2021 Pre-op Diagnosis: left tibia fracture Post-op diagnosis: same Procedure Done: IM Nail Left Tibia Surgeon: Samuel Patiño Anesthesia: General Estimated blood loss (mL): 25 Condition: stable Disposition: PACU Procedure: IM nail left tibia Patient was brought to the operative suite placed in the supine position. All areas impingement were well-padded. Patient was prepped and draped in the normal sterile fashion. Skin incision was made over the superior patellar area. Quadricep tendon was split. The insertion jig from [employer] was inserted the center position of the tibia was found on AP and lateral fluoroscopy. Guidewires inserted opening reamer was used to open the proximal part of the tibia. Guidewire was passed the nail was measured. The size was 300. The tibia was then reamed up to 11. And a size 9 x 300 nail was inserted. 2 screws were placed distally. And then the proximal screws placed in the top part of the dynamic slot. The compression jig was then used to compress the fracture. Once the fracture was compressed then a another screw was placed to hold the tibia in place. AP lateral fluoroscopy ensured that the hardware and fracture were in preposition. Wounds were irrigated the quadricep tendon was repaired. Knee was irrigated. Prior to this. Local was injected in the knee and around the knee and the incision proximally. Wounds were closed with Vicryl and nylon suture. Sterile dressings were applied patient was transferred to the PACU in stable condition.
[2021-01-28] MEDS: HYDROmorphone 1 mg/mL INJ 1 mL 0.5 MG IVP (12:43)
--- NOTE | 2021-01-28 12:43 | SUR.PHASEI ---
1242- DR TERRAZAS APPROVES USE OF DILAUDID PRN ORDER FOR PAIN INTERVENTION AT THIS TIME
[2021-01-28] MEDS: HYDROcodone-acetaminophen 5-325 mg Tablet 1 TAB PO (13:06)
[2021-01-28] MEDS: ondansetron 2 mg/ML SDV 2 mL 4 MG IVP (13:31)
--- NOTE | 2021-01-28 14:48 | ANE.PACU2 ---
Inpatient post-anesthesia follow up: Airway intact: Yes Vital signs: Temperature 98.3 F Pulse Rate 82 Respiratory Rate 18 Blood Pressure 160/103 Pulse Oximetry 95 Oxygen Delivery Me thod Room Air Oxygen Flow Rate 2 Fraction of Inspir ed Oxygen Hydration adequate: Yes Nausea and vomiting: No Pain level: 2 Mental status: Baseline
== END 2021-01-28 14:10 | disposition home or self-care (01) ==
PROVIDERS: Anesthesiology; PCP Family Medicine; Visit Provider Orthopaedic Surgery
PROC: (CPT 27759; principal; 2021-01-28 11:35)
PROC: (CPT 27759; 2021-01-28 11:35)
DX: S82.202A Unspecified fracture of shaft of left tibia, initial encounter for closed fracture (principal); X58.XXXA Exposure to other specified factors, initial encounter; E11.9 Type 2 diabetes mellitus without complications; Z79.84 Long term (current) use of oral hypoglycemic drugs; E66.01 Morbid (severe) obesity due to excess calories; Z68.30 Body mass index [BMI] 30.0-30.9, adult
CPT/HCPCS: 27759; 36416; 73590; 76000; 81025; 82962; 84703; C1713; J0690; J1170; J2250; J2270; J2405; J2704; J3010; J7030

== ENCOUNTER → 2021-03-14 07:59 | Outpatient (BNVA) | payer BC, SELFPAY | PROVIDERS: PCP Family Medicine; Visit Provider Orthopaedic Surgery | DX: Z48.89 Encounter for other specified surgical aftercare (principal) | CPT/HCPCS: 73590 ==

== ENCOUNTER → 2021-05-02 08:23 | Outpatient (BNVA) | payer BC, SELFPAY | PROVIDERS: PCP Family Medicine; Visit Provider Orthopaedic Surgery | DX: Z48.89 Encounter for other specified surgical aftercare (principal); S82.209A Unspecified fracture of shaft of unspecified tibia, initial encounter for closed fracture; X58.XXXA Exposure to other specified factors, initial encounter | CPT/HCPCS: 73590 ==

== ENCOUNTER 2021-05-28 06:00 | Outpatient (RCR) | payer BC, SELFPAY | END 2021-06-01 23:59 | disposition home or self-care (01) | LOC: TPT 06:00 | PROVIDERS: PCP Family Medicine; Referring Provider Orthopaedic Surgery; Visit Provider Orthopaedic Surgery | DX: S82.202D Unspecified fracture of shaft of left tibia, subsequent encounter for closed fracture with routine healing (principal); X58.XXXD Exposure to other specified factors, subsequent encounter | CPT/HCPCS: 97110; 97162 ==

== ENCOUNTER → 2021-06-26 14:11 | Outpatient (BNVA) | payer BC, SELFPAY | PROVIDERS: PCP Family Medicine; Visit Provider Family Medicine | DX: E11.9 Type 2 diabetes mellitus without complications (principal); F31.81 Bipolar II disorder; J30.2 Other seasonal allergic rhinitis; R22.0 Localized swelling, mass and lump, head; Z76.89 Persons encountering health services in other specified circumstances; Z87.09 Personal history of other diseases of the respiratory system | CPT/HCPCS: 80053; 80061; 83036; 83721; 84443; 85025 ==

== ENCOUNTER 2021-08-07 13:20 | Outpatient (CLI) | payer BC, SELFPAY ==
--- NOTE | 2021-08-07 13:45 | MR_ITS ---
WS: [id number] MRI BRAIN WITHOUT CONTRAST HISTORY: SOFT TISSUE MASS, ENLARGING OVER THE R PARIETAL REGION. COMPARISON: None available. TECHNIQUE: Diffusion imaging, multiplanar T1, T2 and FLAIR imaging obtained. No evidence for acute infarct or hemorrhage. Johnson-white matter differentiation is normal. No remote or acute infarcts are volume loss. Ventricles and extra-axial spaces are normal. No inferior displacement of cerebellar tonsils. The sella turcica and pituitary gland are unremarkabl e. Dural venous sinuses and [place] demonstrate no abnormality on this unenhanced studies. Benign cervical chain lymph nodes. Paranasal sinuses: Clear. Mastoid air cells: Normal. Calvarium and scalp: Intact. No significant abnormality noted within the calvarium or scalp. There is a very slightly more prominent bulge in the RIGHT parietal scalp but the signal remains normal and s imilar to the LEFT side. MR/MR head wo con* [id number] IMPRESSION: 1. Unremarkable noncontrast MRI brain. 2. Very slight change in contour of the scalp with bulging towards the RIGHT pa rietal vertex. The soft tissues appear normal and symmetric to the LEFT side al though more prominent on the RIGHT. No discrete mass is identified. For further evaluation CT may provide additional information concerning the skull. No intr acranial abnormality.
== END 2021-08-07 13:21 | disposition home or self-care (01) ==
PROVIDERS: PCP Family Medicine; Visit Provider Family Medicine
DX: R22.0 Localized swelling, mass and lump, head (principal)
CPT/HCPCS: 70551

== ENCOUNTER 2021-08-23 19:21 | Emergency (ER) | payer BC, SELFPAY ==
[2021-08-23 19:29] VITALS: BP 149/95; PULSE 94; RESP 18; TEMP 36.9; O2SAT 98; BMI 30.2
[2021-08-23 20:37] VITALS: BP 144/80; PULSE 80; RESP 18; O2SAT 99
--- NOTE | 2021-08-23 20:45 | CTR_ITS ---
PROCEDURE INFORMATION: Exam: CT Head Without Contrast Exam date and time: 08/23/2021 8:45 PM Age: 41 years old Clinical indication: Syncope and collapse; Additional info: Syncope, left sided headache TECHNIQUE: Imaging protocol: Computed tomography of the head without contrast. Radiation optimization: All CT scans at this facility use at least one of these dose optimization techniques: automated exposure control; mA and/or kV adjustment per patient size (includes targeted exams where dose is matched to clinical indication); or iterative reconstruction. COMPARISON: MR head wo con* [id number] 08/07/2021 1:38 PM RADIATION DOSE METRICS: Total DLP (mGy-cm): 764.78 FINDINGS: Brain: Normal. No hemorrhage. Unremarkable white matter. No mass effect. Cerebral ventricles: No ventriculomegaly. Paranasal sinuses: Visualized sinuses are unremarkable. No fluid levels. Mastoid air cells: Visualized mastoid air cells are well aerated. Bones/joints: Unremarkable. No acute fracture. Soft tissues: Unremarkable. CT/CT head wo con* [id number] IMPRESSION: No acute intracranial abnormality. Radiation Dose CTDIVOL = (mGy): DLP = 764.78 (mGy-cm)
--- NOTE | 2021-08-23 20:45 | ECG_ITS ---
[facility] Test Date: 2021-08-23 Pat Name: Guerrero Pugh Department: Room: Gender: Female Urgent Care Technician: : 1980 Requested By: Robert Chavarria Order Number: [id number] Sean MD: Sid Page M.D. Measurements Intervals [place] Rate: 72 P: 47 MS: 150 QRS: 20 QRSD: 86 T: 46 QT: 388 QTc: 425 Interpretive Statements SINUS RHYTHM Compared to ECG 11/19/2019 20:05:42 Myocardial infarct finding no longer present Electronically Signed On 08-23-2021 22:37:06 CDT by Sid Page M.D. [id number]
--- NOTE | 2021-08-23 20:46 | ED_ITS ---
Documented by User: TRICIA Davis 08/23/21 22:35 HPI - Headache General: Chief Complaint: Headache Stated Complaint: N/V/ SYNCOPE Time Seen by Provider: 08/23/21 20:36 History of Present Illness: HPI Narrative: Patient arrived via ambulance with complaint left-sided headache. Patient said the headache started yesterday. Said it does not feel like her typical migraine. She denies phonophobia or photophobia. Patient said she has been vomiting since yesterday and had diarrhea yesterday but that is gone away. Has little pain in her right kidney area with increased urination. Denies fever chills. Patient is diabetic and said sugars have been under pretty good control. MD elicited complaint: headache and other (Nausea and vomiting) Pertinent past history: migraines, hypertension and other (Diabetes) Onset (ago): day(s) Onset description: gradually Location: left, temporal and occipital Severity: mild Quality & Timing: throbbing Exacerbating factors: none Relieving factors: nothing Associated symptoms: Reports nausea and vomiting; Deny chest pain, fever(s) or rash Treatments prior to arrival: antiemetic Review of Systems Const: Denies: fever(s), chills or body aches Eyes: Denies: change in vision or blurry vision ENMT: Denies: throat pain or nasal congestion Card: Denies: chest pain or dyspnea on exertion Resp: Denies: dyspnea, productive cough or non-productive cough GI: Reports: nausea and vomiting; Denies: abdominal pain : Reports: urinary frequency Musc: Denies: extremity pain Skin/Breast: Denies: rash Neuro: Reports: headache(s) Psych: Denies: anxiety or depression Edd/Lymph: Denies: easy bruising PFS ED PFSH: Medical History (Updated 08/23/21 @ 21:40 by TRICIA Davis) Bipolar II disorder See subjective information below. DM type 2 (diabetes mellitus, type 2) Stefani filter in place Migraines Psychiatric care Pulmonary embolism Social History (Updated 06/26/21 @ 13:19 by Rafael Vyas LPN) Smoking and tobacco status: never smoked Second hand smoke exposure: No Alcohol intake: current Alcohol intake frequency: holidays/special occasions only Female Reproductive History: Date of last menstrual period: 08/15/21 Physical Exam Const: COMMON NORMALS: no acute distress, average body habitus and patient oriented x3 HENMT: COMMON NORMALS: normocephalic HEAD & SCALP: normal to inspection and normocephalic FACE & SINUS: normal facial exam Eye: COMMON NORMALS: conjunctivae normal GENERAL EYE: appearance normal, both eyes and all related structures CONJUNCTIVA: Yes conjunctivae normal Neck/C-Spine: COMMON NORMALS: no JVD Chest: COMMONS NORMALS: normal inspection of the chest Resp: COMMON NORMALS: normal respiratory effort and clear to auscultation bilaterally AUSCULTATION: clear to auscultation bilaterally Cardio: COMMON NORMALS: no JVD, regular rate and regular rhythm RATE: regular rate RHYTHM: regular rhythm GI: COMMON NORMALS: Normal to inspection, nondistended, normoactive bowel sounds present Extremity: COMMON NORMALS: normal to inspection and full ROM Neuro: COMMON NORMALS: patient oriented x3, moves all extremities, no focal motor deficits and no sensory deficits noted Course Vital Signs: Vital signs: Vital Signs Temperature 98.4 F 08/23/21 19:29 Pulse Rate 79 08/23/21 22:31 Respiratory Rate 18 08/23/21 22:31 Blood Pressure 119/78 08/23/21 22:31 Pulse Oximetry 100 08/23/21 22:31 MDM - Headache MDM Narrative: Medical decision making narrative: Patient with apparent gastroenteritis and history of migraines, acute headache. Patient also has what I think is by acute dehydration and that probably led to her syncopal episode after vomiting. BUN/creatinine were normal. Patient responded well to fluids and pain medication. Laboratory was negative for any concerning findings except anion gap was 19. Patient did have 4+ glucose in the urine patient is known diabetic. CT was negative. EKG was negative. Patient instructed follow-up with primary care provider drink plenty of fluids make sure blood sugar stays under control. Lab Data: Labs: Lab Results 08/23/21 08/23/21 08/23/21 19:30 19:30 19:40 WBC 8.0 10^3/uL 10^3/ uL (4.0-10.0) RBC 4.60 10^6/uL 10^6 /uL (4.1-5.3) Hgb 12.7 g/dL g/dL (11.5-15.3) Hct 39.4 % % (37.0-47.0) MCV 85.7 fl fl (81-99) MCH 27.6 pg L pg (28.0-34.0) MCHC 32.2 g/dL g/dL (30.0-36.0) RDW 13.3 % % (12.1-15.1) Plt Count 388 10^3/cmm 10^3 /cmm (130-400) MPV 10.0 fL fL (7.4-10.4) Neut % (Auto) 58.8 % % Lymph % (Auto) 31.8 % % [place] % (Auto) 5.7 % % Eos % (Auto) 2.0 % % Baso % (Auto) 1.1 % % Neut # (Auto) 4.72 10^3/uL 10^3 /uL (1.8-7.7) Lymph # (Auto) 2.6 10^3/uL 10^3/ uL (0.8-4.8) [place] # (Auto) 0.5 10^3/uL 10^3/ uL (0.2-0.9) Eos # (Auto) 0.2 10^3/uL 10^3/ uL (0.0-0.8) Baso # (Auto) 0.1 10^3/uL 10^3/ uL (0.0-0.1) Nucleated RBC % (a uto) 0 % % Nucleated RBCs # 0.0 /100WBC /100W BC Sodium Potassium Chloride Carbon Dioxide Anion Gap BUN Creatinine GFR Calculation Glucose Calculated Osmolal ity Calcium Total Bilirubin AST ALT Alkaline Phosphata se Total Protein Albumin Globulin Lipase HCG, Qual Negative (Negative) Urine Color Straw (Yellow) Urine Appearance Clear (CLEAR) Urine pH 5 (5-7) Ur Specific Gravit y 1.015 (1.005-1.030) Urine Protein Neg (Negative) Urine Glucose (UA) 4+ H (Normal) Urine Ketones Negative (Negative) Urine Blood 2+ H (Negative) Urine Nitrate Negative (Negative) Urine Bilirubin Neg (Negative) Urine Urobilinogen Norm mg/dL mg/dL (Negative) Ur Leukocyte Val ase Negative (Negative) Urine RBC 0-4 /hpf H /hpf (0-2) Urine WBC 0-4 /hpf H /hpf (0-5) Ur Squamous Epith Cells 15-25 /hpf H /hpf (0-5) Calcium Oxalate Cr ystal 15-25 /hpf H /hpf Amorphous Sediment Not Reportable Urine Bacteria Trace /hpf /hpf (NONE) 08/23/21 19:40 WBC RBC Hgb Hct MCV MCH MCHC RDW Plt Count MPV Neut % (Auto) Lymph % (Auto) [place] % (Auto) Eos % (Auto) Baso % (Auto) Neut # (Auto) Lymph # (Auto) [place] # (Auto) Eos # (Auto) Baso # (Auto) Nucleated RBC % (a uto) Nucleated RBCs # Sodium 138 mmol/L mmol/L (136-145) Potassium 3.9 mmol/L mmol/L (3.5-5.1) Chloride 102 mmol/L mmol/L (98-107) Carbon Dioxide 20 mmol/L L mmol/ L (22-29) Anion Gap 19.9 H (5-19) BUN 7 mg/dL mg/dL (6-20) Creatinine 0.7 mg/dL mg/dL (0.5-0.9) GFR Calculation 93.2 mL/min mL/mi n (90-130) Glucose 163 mg/dL H mg/dL (65-115) Calculated Osmolal ity 288 mOsm/kg mOsm/ kg (285-295) Calcium 9.6 mg/dL mg/dL (8.5-10.5) Total Bilirubin 0.2 mg/dL mg/dL (0.15-1.2) AST 21 U/L U/L (0-32) ALT 25 U/L U/L (0-33) Alkaline Phosphata se 51 IU/L IU/L (35-105) Total Protein 7.4 g/dL g/dL (6.6-8.7) Albumin 4.4 g/dL g/dL (3.5-5.2) Globulin 3.0 g/dL g/dL (1.3-4.6) Lipase 45 U/L U/L (13-60) HCG, Qual Urine Color Urine Appearance Urine pH Ur Specific Gravit y Urine Protein Urine Glucose (UA) Urine Ketones Urine Blood Urine Nitrate Urine Bilirubin Urine Urobilinogen Ur Leukocyte Val ase Urine RBC Urine WBC Ur Squamous Epith Cells Calcium Oxalate Cr ystal Amorphous Sediment Urine Bacteria EKG Data^: EKG 1: EKG interpretation date: 08/23/21 EKG interpretation time: 21:07 Computer generated interpretation: Normal sinus rhythm ventricular rate 72 bpm DC interval 156 ms QRS duration 86 ms QT is 388 ms Discharge Plan Discharge Patient Disposition: Home Clinical Impression: Gastroenteritis Headache Qualifiers: Headache type: unspecified Headache chronicity pattern: acute headache Intractability: intractable Qualified Code(s): R51.9 - Headache, unspecified Condition: Stable Prescriptions: New Zofran 4 mg tablet 4 mg PO Q8H 3 Days Qty: 9 RF: 0 No Action melatonin 10 mg tablet 5 mg PO BEDTIME RF: 0 lamotrigine 150 mg tablet 150 mg PO .q hs Qty: 30 RF: 2 trazodone 50 mg tablet 50 mg PO .Nightly PRN (Reason: insomnia) Qty: 30 RF: 2 lamotrigine 100 mg tablet 100 mg PO .q am Qty: 30 RF: 2 escitalopram oxalate 20 mg tablet 20 mg PO DAILY Qty: 30 RF: 1 fenofibrate 50 mg capsule 50 mg PO DAILY Qty: 30 RF: 5 metformin 500 mg tablet 1,000 mg PO BID RF: 0 naproxen sodium [Aleve] 220 mg Tablet 440 mg PO PRN RF: 0 ibuprofen 200 mg Tablet 800 mg PO PRN RF: 0 Discharge Orders: Discharge ED (Routine); Ordered 08/23/21 Ordered By: Robert Chavarria Referrals: Anibal Fried DO [Primary Care Provider] - Discharge Diet: Advance as tolerated Discharge Activity: Resume usual activity Patient Instructions: Gastroenteritis (ED) Activity Restrictions/Additional Instructions: Follow-up with medical provider as directed. Take medications as prescribed. Return to the ER or your medical provider if condition worsens. Please read and understand discharge instructions. If any questions ask please. Coding Level of Care Code ED Special Agent for Chg Fwd Exam Comprehensive Documented by User: Justo Ugalde DO 08/24/21 01:10 HPI - Headache General: Chief Complaint: Headache Stated Complaint: N/V/ SYNCOPE Time Seen by Provider: 08/23/21 20:36 [facility] ED PFSH: Medical History (Updated 08/23/21 @ 21:40 by TRICIA Davis) Bipolar II disorder See subjective information below. DM type 2 (diabetes mellitus, type 2) Stefani filter in place Migraines Psychiatric care Pulmonary embolism Social History (Updated 06/26/21 @ 13:19 by Rafael Vyas LPN) Smoking and tobacco status: never smoked Second hand smoke exposure: No Alcohol intake: current Alcohol intake frequency: holidays/special occasions only Course Vital Signs: Vital signs: Vital Signs Temperature 98.4 F 08/23/21 19:29 Pulse Rate 79 08/23/21 22:31 Respiratory Rate 18 08/23/21 22:31 Blood Pressure 119/78 08/23/21 22:31 Pulse Oximetry 100 08/23/21 22:31 MDM - Headache MDM Narrative: Medical decision making narrative: This patient was originally seen by TRICIA Sapp. I agree with his history, evaluation, and treatment. Lab Data: Labs: Lab Results 08/23/21 08/23/21 08/23/21 19:30 19:30 19:40 WBC 8.0 10^3/uL 10^3/ uL (4.0-10.0) RBC 4.60 10^6/uL 10^6 /uL (4.1-5.3) Hgb 12.7 g/dL g/dL (11.5-15.3) Hct 39.4 % % (37.0-47.0) MCV 85.7 fl fl (81-99) MCH 27.6 pg L pg (28.0-34.0) MCHC 32.2 g/dL g/dL (30.0-36.0) RDW 13.3 % % (12.1-15.1) Plt Count 388 10^3/cmm 10^3 /cmm (130-400) MPV 10.0 fL fL (7.4-10.4) Neut % (Auto) 58.8 % % Lymph % (Auto) 31.8 % % [place] % (Auto) 5.7 % % Eos % (Auto) 2.0 % % Baso % (Auto) 1.1 % % Neut # (Auto) 4.72 10^3/uL 10^3 /uL (1.8-7.7) Lymph # (Auto) 2.6 10^3/uL 10^3/ uL (0.8-4.8) [place] # (Auto) 0.5 10^3/uL 10^3/ uL (0.2-0.9) Eos # (Auto) 0.2 10^3/uL 10^3/ uL (0.0-0.8) Baso # (Auto) 0.1 10^3/uL 10^3/ uL (0.0-0.1) Nucleated RBC % (a uto) 0 % % Nucleated RBCs # 0.0 /100WBC /100W BC Sodium Potassium Chloride Carbon Dioxide Anion Gap BUN Creatinine GFR Calculation Glucose Calculated Osmolal ity Calcium Total Bilirubin AST ALT Alkaline Phosphata se Total Protein Albumin Globulin Lipase HCG, Qual Negative (Negative) Urine Color Straw (Yellow) Urine Appearance Clear (CLEAR) Urine pH 5 (5-7) Ur Specific Gravit y 1.015 (1.005-1.030) Urine Protein Neg (Negative) Urine Glucose (UA) 4+ H (Normal) Urine Ketones Negative (Negative) Urine Blood 2+ H (Negative) Urine Nitrate Negative (Negative) Urine Bilirubin Neg (Negative) Urine Urobilinogen Norm mg/dL mg/dL (Negative) Ur Leukocyte Val ase Negative (Negative) Urine RBC 0-4 /hpf H /hpf (0-2) Urine WBC 0-4 /hpf H /hpf (0-5) Ur Squamous Epith Cells 15-25 /hpf H /hpf (0-5) Calcium Oxalate Cr ystal 15-25 /hpf H /hpf Amorphous Sediment Not Reportable Urine Bacteria Trace /hpf /hpf (NONE) 08/23/21 19:40 WBC RBC Hgb Hct MCV MCH MCHC RDW Plt Count MPV Neut % (Auto) Lymph % (Auto) [place] % (Auto) Eos % (Auto) Baso % (Auto) Neut # (Auto) Lymph # (Auto) [place] # (Auto) Eos # (Auto) Baso # (Auto) Nucleated RBC % (a uto) Nucleated RBCs # Sodium 138 mmol/L mmol/L (136-145) Potassium 3.9 mmol/L mmol/L (3.5-5.1) Chloride 102 mmol/L mmol/L (98-107) Carbon Dioxide 20 mmol/L L mmol/ L (22-29) Anion Gap 19.9 H (5-19) BUN 7 mg/dL mg/dL (6-20) Creatinine 0.7 mg/dL mg/dL (0.5-0.9) GFR Calculation 93.2 mL/min mL/mi n (90-130) Glucose 163 mg/dL H mg/dL (65-115) Calculated Osmolal ity 288 mOsm/kg mOsm/ kg (285-295) Calcium 9.6 mg/dL mg/dL (8.5-10.5) Total Bilirubin 0.2 mg/dL mg/dL (0.15-1.2) AST 21 U/L U/L (0-32) ALT 25 U/L U/L (0-33) Alkaline Phosphata se 51 IU/L IU/L (35-105) Total Protein 7.4 g/dL g/dL (6.6-8.7) Albumin 4.4 g/dL g/dL (3.5-5.2) Globulin 3.0 g/dL g/dL (1.3-4.6) Lipase 45 U/L U/L (13-60) HCG, Qual Urine Color Urine Appearance Urine pH Ur Specific Gravit y Urine Protein Urine Glucose (UA) Urine Ketones Urine Blood Urine Nitrate Urine Bilirubin Urine Urobilinogen Ur Leukocyte Val ase Urine RBC Urine WBC Ur Squamous Epith Cells Calcium Oxalate Cr ystal Amorphous Sediment Urine Bacteria Discharge Plan Discharge Patient Disposition: Home Clinical Impression: Gastroenteritis Headache Qualifiers: Headache type: unspecified Headache chronicity pattern: acute headache Intractability: intractable Qualified Code(s): R51.9 - Headache, unspecified Condition: Stable Prescriptions: New Zofran 4 mg tablet 4 mg PO Q8H 3 Days Qty: 9 RF: 0 No Action melatonin 10 mg tablet 5 mg PO BEDTIME RF: 0 lamotrigine 150 mg tablet 150 mg PO .q hs Qty: 30 RF: 2 trazodone 50 mg tablet 50 mg PO .Nightly PRN (Reason: insomnia) Qty: 30 RF: 2 lamotrigine 100 mg tablet 100 mg PO .q am Qty: 30 RF: 2 escitalopram oxalate 20 mg tablet 20 mg PO DAILY Qty: 30 RF: 1 fenofibrate 50 mg capsule 50 mg PO DAILY Qty: 30 RF: 5 metformin 500 mg tablet 1,000 mg PO BID RF: 0 naproxen sodium [Aleve] 220 mg Tablet 440 mg PO PRN RF: 0 ibuprofen 200 mg Tablet 800 mg PO PRN RF: 0 Discharge Orders: Discharge ED (Routine); Ordered 08/23/21 Ordered By: Robert Chavarria Referrals: Anibal Fried DO [Primary Care Provider] - Discharge Diet: Advance as tolerated Discharge Activity: Resume usual activity Patient Instructions: Gastroenteritis (ED) Activity Restrictions/Additional Instructions: Follow-up with medical provider as directed. Take medications as prescribed. Return to the ER or your medical provider if condition worsens. Please read and understand discharge instructions. If any questions ask please. Coding Level of Care Code ED Special Agent for Padmini Fwd Exam Comprehensive
[2021-08-23 20:49] LABS: Basophils # 0.1 10^3/uL (0.0-0.1); Basophils % 1.1 %; Eosinophils # 0.2 10^3/uL (0.0-0.8); Hematocrit 39.4 % (37.0-47.0); Hemoglobin 12.7 g/dL (11.5-15.3); Lymphocytes # 2.6 10^3/uL (0.8-4.8); Lymphocytes % 31.8 %; Mean Corpuscular HGB Conc 32.2 g/dL (30.0-36.0); Mean Corpuscular Hemoglobin 27.6 pg (28.0-34.0); Mean Corpuscular Volume 85.7 fl (81-99); Monocytes # 0.5 10^3/uL (0.2-0.9); Monocytes % 5.7 %; Neutrophils # 4.72 10^3/uL (1.8-7.7); Neutrophils % 58.8 %; Nucleated Red Blood Cells % 0 %; Platelet Count 388 10^3/cmm (130-400); Red Cell Distribution Width 13.3 % (12.1-15.1)
[2021-08-23 20:53] LABS: HCG Qualitative Urine. Negative (Negative)
[2021-08-23 21:04] LABS: Alanine Aminotransferase 25 U/L (0-33); Albumin Level 4.4 g/dL (3.5-5.2); Alkaline Phosphatase 51 IU/L (35-105); Anion Gap 19.9 (5-19); Aspartate Amino Transferase 21 U/L (0-32); Blood Urea Nitrogen 7 mg/dL (6-20); Calcium 9.6 mg/dL (8.5-10.5); Carbon Dioxide 20 mmol/L (22-29); Chloride 102 mmol/L (98-107); Glomerular Filtration Rate 93.2 mL/min (90-130); Glucose 163 mg/dL (65-115); Lipase 45 U/L (13-60); Osmolality Calculated 288 mOsm/kg (285-295); Potassium 3.9 mmol/L (3.5-5.1); Sodium 138 mmol/L (136-145); Total Bilirubin 0.2 mg/dL (0.15-1.2); Total Protein 7.4 g/dL (6.6-8.7)
[2021-08-23 21:20] LABS: Specific Gravity, Urine 1.015 (1.005-1.030); Urine Appearance Clear (CLEAR); Urine Color Straw (Yellow); pH Urine 5 (5-7)
[2021-08-23 21:21] LABS: Add Urine Microscopic? YES; Bilirubin Urine Neg (Negative); Blood Urine 2+ (Negative); Glucose Urine UA 4+ (Normal); Ketones Urine Negative (Negative); Leukocyte Esterase Urine Negative (Negative); Nitrate Urine Negative (Negative); Protein Urine Neg (Negative); Urobilinogen Urine Norm (Negative)
[2021-08-23] MEDS: sodium chloride 0.9% 1,000 ML 999 ML IV (21:34)
[2021-08-23 21:35] LABS: Add Urine Culture? No; Bacteria Urine TRACE /hpf; Calcium Oxalate Crystals Urine 15-25 /hpf; RBC Urine 0-4 /hpf (0-2); Squamous Epithelial Cell Urine 15-25 /hpf (0-5); WBC Urine 0-4 /hpf (0-5)
[2021-08-23] MEDS: metoclopramide 5 mg/mL SDV 2 mL IVP (21:35)
[2021-08-23] MEDS: ketorolac 30 mg/mL INJ IVP (21:35)
[2021-08-23 22:07] VITALS: BP 117/80; PULSE 80; RESP 18; O2SAT 99
[2021-08-23 22:31] VITALS: BP 119/78; PULSE 79; RESP 18; O2SAT 100
== END 2021-08-23 22:30 | disposition home or self-care (01) ==
PROVIDERS: Emergency Provider Nurse Practitioner Family; PCP Family Medicine
DX: R51.9 Headache, unspecified (principal); K52.9 Noninfective gastroenteritis and colitis, unspecified; Z79.84 Long term (current) use of oral hypoglycemic drugs; E11.9 Type 2 diabetes mellitus without complications; Z86.711 Personal history of pulmonary embolism
CPT/HCPCS: 70450; 80053; 81001; 81025; 83690; 85025; 93005; 96361; 96374; 96375; 99284; J1885; J2765; J7030

== ENCOUNTER 2021-11-19 12:30 | Emergency (ER) | payer BC, MEDICAID, SELFPAY ==
[2021-11-19 12:36] VITALS: BP 127/83; PULSE 101; RESP 18; TEMP 36.6; O2SAT 98; BMI 31.5
--- NOTE | 2021-11-19 12:45 | ECG_ITS ---
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 Measurements Intervals [place] Rate: 103 P: 23 ID: [id number] QRS: 7 QRSD: 86 T: 20 QT: 341 QTc: 448 Interpretive Statements SINUS TACHYCARDIA POSSIBLE ANTERIOR MYOCARDIAL INFARCTION , PROBABLY OLD [30 ms Q WAVE IN V3/V4, OR R < 0.2 mV IN V4] ABNORMAL RHYTHM ECG Compared to ECG 08/23/2021 21:01:41 Myocardial infarct finding now present Sinus rhythm no longer present Electronically Signed On 11-21-2021 19:31:28 WINDOW GLAZIER HELPER by Letha Frederick M.D. [id number]
[2021-11-19 13:08] VITALS: BP 127/87; PULSE 91; RESP 18; O2SAT 94
--- NOTE | 2021-11-19 13:18 | W.ED.GENADLT ---
HPI - General Adult General: Chief complaint: Shortness of Breath/Dyspnea Stated complaint: chest discomfort, sob, cough Time Seen by Provider: 11/19/21 13:05 History of Present Illness: HPI narrative: Patient complains about cough, congestion cough headache, muscle aches and pain with deep inspiration and with her cough. Denies any chest pressure denies any fever or chills. Was tested for COVID on Thursday and was negative. Her symptoms been present for a week. Onset (ago): day(s) Associated symptoms: Reports cough and other (Nasal congestion sore throat); Deny chest pain, dyspnea, headache(s), nausea, rash or vomiting Review of Systems Const: Reports: body aches and fatigue; Denies: fever(s) or chills Eyes: Denies: change in vision or blurry vision ENMT: Reports: throat pain and nasal congestion Card: Reports: other (Pain with deep inspiration in her upper airway); Denies: chest pain or dyspnea on exertion Resp: Denies: dyspnea, productive cough or non-productive cough GI: Denies: abdominal pain, nausea or vomiting Musc: Denies: extremity pain Skin/Breast: Denies: rash Neuro: Denies: headache(s) Psych: Denies: anxiety or depression Edd/Lymph: Denies: easy bruising PFSH ED PFSH: Medical History (Updated 11/19/21 @ 13:07 by TRICIA Davis) Bipolar II disorder See subjective information below. DM type 2 (diabetes mellitus, type 2) Stefani filter in place Migraines Psychiatric care Pulmonary embolism Social History (Updated 06/26/21 @ 13:19 by Rafael Vyas LPN) Smoking and tobacco status: never smoked Second hand smoke exposure: No Alcohol intake: current Alcohol intake frequency: holidays/special occasions only Female Reproductive History: Date of last menstrual period: 08/15/21 Physical Exam Const: COMMON NORMALS: no acute distress, average body habitus and patient oriented x3 HENMT: COMMON NORMALS: normocephalic HEAD & SCALP: normal to inspection and normocephalic FACE & SINUS: normal facial exam Eye: COMMON NORMALS: conjunctivae normal GENERAL EYE: appearance normal, both eyes and all related structures CONJUNCTIVA: Yes conjunctivae normal Neck/C-Spine: COMMON NORMALS: no JVD Chest: COMMONS NORMALS: normal inspection of the chest Resp: COMMON NORMALS: normal respiratory effort and clear to auscultation bilaterally AUSCULTATION: clear to auscultation bilaterally Cardio: COMMON NORMALS: no JVD, regular rate and regular rhythm RATE: regular rate RHYTHM: regular rhythm GI: COMMON NORMALS: Normal to inspection, nondistended, normoactive bowel sounds present Extremity: COMMON NORMALS: normal to inspection and full ROM Neuro: COMMON NORMALS: patient oriented x3 Course Vital Signs: Vital signs: Vital Signs Temperature 97.9 F 11/19/21 12:36 Pulse Rate 91 11/19/21 13:08 Respiratory Rate 18 11/19/21 13:08 Blood Pressure 127/87 11/19/21 13:08 Pulse Oximetry 94 11/19/21 13:08 Discharge Plan Discharge Patient Disposition: Home Clinical Impression: Acute viral syndrome Condition: Stable Prescriptions: New Decadron 6 mg tablet 6 mg PO DAILY Qty: 7 RF: 0 Tessalon Perles 100 mg capsule 100 mg PO TID PRN (Reason: cough) Qty: 14 RF: 0 No Action escitalopram oxalate 20 mg tablet 20 mg PO DAILY Qty: 30 RF: 2 lamotrigine 150 mg tablet 150 mg PO .q hs Qty: 30 RF: 2 lamotrigine 100 mg tablet 100 mg PO .q am Qty: 30 RF: 2 trazodone 50 mg tablet 50 mg PO .Nightly PRN (Reason: insomnia) Qty: 30 RF: 2 melatonin 10 mg tablet 5 mg PO BEDTIME RF: 0 fenofibrate 50 mg capsule 50 mg PO DAILY Qty: 30 RF: 5 metformin 500 mg tablet 1,000 mg PO BID RF: 0 naproxen sodium [Aleve] 220 mg Tablet 440 mg PO PRN RF: 0 ibuprofen 200 mg Tablet 800 mg PO PRN RF: 0 Discharge Orders: Discharge ED (Routine); Ordered 11/19/21 Ordered By: Robert Chavarria Referrals: Anibal Fried DO [Primary Care Provider] - Discharge Diet: Usual diet Discharge Activity: Increase activity as tolerated Patient Instructions: Viral Syndrome (ED) Activity Restrictions/Additional Instructions: Follow-up with medical provider as directed. Take medications as prescribed. Return to the ER or your medical provider if condition worsens. Please read and understand discharge instructions. If any questions ask please. Your blood sugars were probably go up since you are taking a steroid for next few days. Retest for COVID again if you feel necessary. Drink plenty fluids stay off work a couple days. Coding Level of Care Code ED Junior Staff Accountant for Padmini Castro
== END 2021-11-19 13:21 | disposition home or self-care (01) ==
PROVIDERS: Emergency Provider Nurse Practitioner Family; PCP Family Medicine
DX: B34.9 Viral infection, unspecified (principal); E11.9 Type 2 diabetes mellitus without complications
CPT/HCPCS: 93005; 99283

== ENCOUNTER 2022-01-23 07:22 | Emergency (ER) | payer BC, MEDICAID, SELFPAY ==
[2022-01-23 07:34] VITALS: BP 149/98; PULSE 109; RESP 17; TEMP 36.7; O2SAT 98; BMI 31.9
--- NOTE | 2022-01-23 07:43 | XRR_ITS ---
PROCEDURE INFORMATION: Exam: XR Abdomen Exam date and time: 01/23/2022 6:52 AM Age: 41 years old Clinical indication: Abdominal pain; Prior surgery; Surgery type: C section; Patient HX: History--pt has had pain in the RT mid to lower quadrant of abdomen for 2 days. The pain just continually gets worse. PT states that it is a sharp constant pain; Additional info: Abd discomfort TECHNIQUE: Imaging protocol: XR of the abdomen. Views: Frontal supine view of the abdomen. 1 View. COMPARISON: CR XR KUB [id number] 08/10/2019 7:50 AM FINDINGS: Gastrointestinal tract: Nonobstructive bowel gas pattern. Moderate colonic stool burden. Organs: There is suggestion of hepatomegaly. Vasculature: IVC filter is in place. Bones/joints: Unremarkable. XR/XR KUB portable [id number] IMPRESSION: Nonobstructive bowel gas pattern with moderate colonic stool burden. COMMENTS: For patients with an IVC filter, recommend assessment for a management plan for the patient's IVC filter. If there is no established management plan, recommend referral to an interventional clinician on a nonemergent basis for evaluation.
--- NOTE | 2022-01-23 07:44 | ED_ITS ---
HPI - Abdominal Pain General: Chief Complaint: Abdominal Pain Stated Complaint: Rt side severe Abd pain Time Seen by Provider: 01/23/22 07:31 History of Present Illness: Patient states she developed abdominal pain on the way to work this morning. Vomited x1. Said her stomach is been bothering for the last couple weeks and more the last few days. Said she has been having increased gas. Denies not been able eat or drink. Has had diarrhea last couple days. Has had some increased urination. Denies any abdominal surgeries besides . Associated Symptoms: Reports diarrhea and vomiting; Denies chills, fever(s) and nausea Related Data: Date of Last Menstrual Period: 08/15/21 Review of Systems Const: Denies: fever(s), chills or body aches Eyes: Denies: eye discomfort ENMT: Denies: throat pain Card: Denies: chest pain Resp: Denies: dyspnea GI: Reports: abdominal pain, vomiting and diarrhea; Denies: nausea Skin/Breast: Denies: rash Neuro: Denies: headache(s) Psych: Denies: depression or suicidal ideation PFS ED PFSH: Medical History (Updated 01/23/22 @ 08:45 by TRICIA Davis) Bipolar II disorder See subjective information below. DM type 2 (diabetes mellitus, type 2) [place] filter in place Migraines Psychiatric care Pulmonary embolism Social History (Updated 06/26/21 @ 13:19 by Rafael Vyas LPN) Smoking and tobacco status: never smoked Second hand smoke exposure: No Alcohol intake: current Alcohol intake frequency: holidays/special occasions only Female Reproductive History: Date of last menstrual period: 08/15/21 Physical Exam Const: COMMON NORMALS: no acute distress, patient oriented x3 and alert HENMT: COMMON NORMALS: normocephalic and external ears normal HEAD & SCALP: normocephalic EXTERNAL EAR: Yes external ears normal Eye: COMMON NORMALS: EOMs intact bilaterally Neck/C-Spine: COMMON NORMALS: no JVD Resp: COMMON NORMALS: normal respiratory effort and No use of accessory muscles Cardio: COMMON NORMALS: no JVD GI: INSPECTION: Yes normal to inspection AUSCULTATION: Yes normoactive bowel sounds PALPATION: Yes Tenderness to palpation present (GI) Details: RUQ and other (Generalized abdominal discomfort more on the right middle ) Extremity: COMMON NORMALS: normal to inspection and full ROM Neuro: COMMON NORMALS: patient oriented x3 SENSORIUM/ORIENTATION: Yes alert Psych: COMMON NORMALS: mental status grossly normal Skin: COMMON NORMALS: no rashes or lesions noted GENERAL SKIN EXAM: no rashes or lesions noted Course Vital Signs: Vital signs: Vital Signs Temperature 98.0 F 01/23/22 07:45 Pulse Rate 81 01/23/22 08:52 Respiratory Rate 17 01/23/22 07:45 Blood Pressure 149/98 01/23/22 08:52 Pulse Oximetry 97 01/23/22 08:52 MDM - Abdominal Pain Medical Decision Making Patient presented today with acute onset abdominal discomfort while driving to work today said he had one episode of vomiting. Laboratory studies were negative for any concerning factors except your blood sugar is 200 which she has not been taking good care of as of recently. KUB seem to show moderate constipation patient is encouraged to use magnesium citrate and increase fluids to help with the constipation. Patient encouraged check sugars daily. Follow- up primary care provider. Lab Data : 01/23/22 07:50 01/23/22 07:50 Labs/Radiology: Radiology Impressions KUB X-Ray 01/23/22 07:43 IMPRESSION: Nonobstructive bowel gas pattern with moderate colonic stool burden. COMMENTS: For patients with an IVC filter, recommend assessment for a management plan for the patient's IVC filter. If there is no established management plan, recommend referral to an interventional clinician on a nonemergent basis for evaluation. Laboratory Results WBC 7.6 10^3/uL (4.0-10.0) 01/23/22 07:50 RBC 4.61 10^6/uL (4.1-5.3) 01/23/22 07:50 Hgb 12.9 g/dL (11.5-15.3) 01/23/22 07:50 Hct 39.5 % (37.0-47.0) 01/23/22 07:50 MCV 85.7 fl (81-99) 01/23/22 07:50 MCH 28.0 pg (28.0-34.0) 01/23/22 07:50 MCHC 32.7 g/dL (30.0-36.0) 01/23/22 07:50 RDW 14.2 % (12.1-15.1) 01/23/22 07:50 Plt Count 313 10^3/cmm (130-400) 01/23/22 07:50 MPV 9.7 fL (7.4-10.4) 01/23/22 07:50 Neut % (Auto) 57.2 % 01/23/22 07:50 Lymph % (Auto) 28.3 % 01/23/22 07:50 [place] % (Auto) 6.0 % 01/23/22 07:50 Eos % (Auto) 6.3 % 01/23/22 07:50 Baso % (Auto) 0.9 % 01/23/22 07:50 Neut # (Auto) 4.35 10^3/uL (1.8-7.7) 01/23/22 07:50 Lymph # (Auto) 2.2 10^3/uL (0.8-4.8) 01/23/22 07:50 [place] # (Auto) 0.5 10^3/uL (0.2-0.9) 01/23/22 07:50 Eos # (Auto) 0.5 10^3/uL (0.0-0.8) 01/23/22 07:50 Baso # (Auto) 0.1 10^3/uL (0.0-0.1) 01/23/22 07:50 Nucleated RBC % (auto) 0 % 01/23/22 07:50 Nucleated RBCs # 0.0 /100WBC 01/23/22 07:50 Sodium 137 mmol/L (136-145) 01/23/22 07:50 Potassium 4.3 mmol/L (3.5-5.1) 01/23/22 07:50 Chloride 100 mmol/L (98-107) 01/23/22 07:50 Carbon Dioxide 20 mmol/L (22-29) L 01/23/22 07:50 Anion Gap 21.3 (5-19) H 01/23/22 07:50 BUN 11 mg/dL (6-20) 01/23/22 07:50 Creatinine 0.5 mg/dL (0.5-0.9) 01/23/22 07:50 GFR Calculation 137.4 mL/min (90-130) H 01/23/22 07:50 Glucose 200 mg/dL (65-115) H 01/23/22 07:50 Calculated Osmolality 289 mOsm/kg (285-295) 01/23/22 07:50 Calcium 10.0 mg/dL (8.5-10.5) 01/23/22 07:50 Total Bilirubin 0.3 mg/dL (0.15-1.2) 01/23/22 07:50 AST 23 U/L (0-32) 01/23/22 07:50 ALT 30 U/L (0-33) 01/23/22 07:50 Alkaline Phosphatase 54 IU/L (35-105) 01/23/22 07:50 Total Protein 7.2 g/dL (6.6-8.7) 01/23/22 07:50 Albumin 4.7 g/dL (3.5-5.2) 01/23/22 07:50 Globulin 2.5 g/dL (1.3-4.6) 01/23/22 07:50 Lipase 42 U/L (13-60) 01/23/22 07:50 HCG, Qual Negative (Negative) 01/23/22 08:15 Urine Color Yellow (Yellow) 01/23/22 08:15 Urine Appearance Clear (CLEAR) 01/23/22 08:15 Urine pH 5 (5-7) 01/23/22 08:15 Ur Specific [place] 1.020 (1.005-1.030) 01/23/22 08:15 Urine Protein Neg (Negative) 01/23/22 08:15 Urine Glucose (UA) 4+ (Normal) H 01/23/22 08:15 Urine Ketones 1+ (Negative) H 01/23/22 08:15 Urine Blood Neg (Negative) 01/23/22 08:15 Urine Nitrate Negative (Negative) 01/23/22 08:15 Urine Bilirubin Neg (Negative) 01/23/22 08:15 Urine Urobilinogen Norm mg/dL (Negative) 01/23/22 08:15 Ur Leukocyte Esterase Negative (Negative) 01/23/22 08:15 Discharge Plan Discharge Patient Disposition: Home Clinical Impression: Constipated, Hyperglycemia Condition: Stable Prescriptions: New Zofran 4 mg tablet 4 mg PO Q8H 3 Days Qty: 9 0RF Citrate of Magnesia Solution 296 ml PO DAILY PRN (Reason: constipation) Qty: 296 0RF No Action escitalopram oxalate 20 mg tablet 20 mg PO DAILY Qty: 30 2RF Rx Instructions: Take 1 tablet daily by mouth lamotrigine 150 mg tablet 150 mg PO .q hs Qty: 30 2RF Rx Instructions: take one tablet by mouth at bedtime lamotrigine 100 mg tablet 100 mg PO .q am Qty: 30 2RF Rx Instructions: Take one tablet by mouth every morning trazodone 50 mg tablet 50 mg PO .Nightly PRN (Reason: insomnia) Qty: 30 2RF Rx Instructions: Take 1 tablet daily at bedtime, if needed for insomnia melatonin 10 mg tablet 5 mg PO BEDTIME 0RF fenofibrate 50 mg capsule 50 mg PO DAILY Qty: 30 5RF metformin 500 mg tablet 1,000 mg PO BID 0RF Decadron 6 mg tablet 6 mg PO DAILY Qty: 7 0RF Tessalon Perles 100 mg capsule 100 mg PO TID PRN (Reason: cough) Qty: 14 0RF naproxen sodium [Aleve] 220 mg Tablet 440 mg PO PRN 0RF ibuprofen 200 mg Tablet 800 mg PO PRN 0RF Discharge Orders: Discharge ED (Routine); Ordered 01/23/22 Ordered By: Robert Chavarria Referrals: Anibal Fried DO [Primary Care Provider] - Discharge Diet: Advance as tolerated Discharge Activity: Resume usual activity Patient Instructions: Constipation (ED), Diabetic Hyperglycemia (ED) Activity Restrictions/Additional Instructions: follow up with you PCP. take medicine as directed, check sugars daily Coding Level of Care Code ED Coloring Room Worker for Chg Fwd Exam Comprehensive
[2022-01-23 07:45] VITALS: BP 149/98; PULSE 109; RESP 17; TEMP 36.7; O2SAT 98
[2022-01-23] MEDS: alum-mag-hydroxide-sime 30 mL UDC PO (07:56)
[2022-01-23] MEDS: sodium chloride 0.9% 1,000 ML 999 ML IV (07:56)
[2022-01-23 08:01] LABS: Basophils # 0.1 10^3/uL (0.0-0.1); Basophils % 0.9 %; Eosinophils # 0.5 10^3/uL (0.0-0.8); Eosinophils % 6.3 %; Hematocrit 39.5 % (37.0-47.0); Hemoglobin 12.9 g/dL (11.5-15.3); Lymphocytes # 2.2 10^3/uL (0.8-4.8); Lymphocytes % 28.3 %; Mean Corpuscular HGB Conc 32.7 g/dL (30.0-36.0); Mean Corpuscular Volume 85.7 fl (81-99); Mean Platelet Volume 9.7 fL (7.4-10.4); Monocytes # 0.5 10^3/uL (0.2-0.9); Neutrophils # 4.35 10^3/uL (1.8-7.7); Neutrophils % 57.2 %; Nucleated Red Blood Cells % 0 %; Platelet Count 313 10^3/cmm (130-400); Red Blood Count 4.61 10^6/uL (4.1-5.3); Red Cell Distribution Width 14.2 % (12.1-15.1); White Blood Count 7.6 10^3/uL (4.0-10.0)
[2022-01-23 08:17] VITALS: BP 149/98; PULSE 98; O2SAT 96
[2022-01-23 08:18] LABS: Alanine Aminotransferase 30 U/L (0-33); Albumin Level 4.7 g/dL (3.5-5.2); Alkaline Phosphatase 54 IU/L (35-105); Anion Gap 21.3 (5-19); Aspartate Amino Transferase 23 U/L (0-32); Blood Urea Nitrogen 11 mg/dL (6-20); Carbon Dioxide 20 mmol/L (22-29); Chloride 100 mmol/L (98-107); Globulin 2.5 g/dL (1.3-4.6); Glomerular Filtration Rate 137.4 mL/min (90-130); Glucose 200 mg/dL (65-115); Lipase 42 U/L (13-60); Osmolality Calculated 289 mOsm/kg (285-295); Potassium 4.3 mmol/L (3.5-5.1); Sodium 137 mmol/L (136-145); Total Bilirubin 0.3 mg/dL (0.15-1.2); Total Protein 7.2 g/dL (6.6-8.7)
[2022-01-23 08:19] LABS: Add Urine Microscopic? NO; Charge for UA Resulting for Rev
[2022-01-23 08:20] LABS: HCG Qualitative Urine. Negative (Negative)
[2022-01-23 08:23] LABS: Bilirubin Urine Neg (Negative); Blood Urine Neg (Negative); Glucose Urine UA 4+ (Normal); Ketones Urine 1+ (Negative); Leukocyte Esterase Urine Negative (Negative); Nitrate Urine Negative (Negative); Protein Urine Neg (Negative); Urine Appearance Clear (CLEAR); Urine Color Yellow (Yellow); Urobilinogen Urine Norm (Negative); pH Urine 5 (5-7)
[2022-01-23 08:52] VITALS: BP 149/98; PULSE 81; O2SAT 97
== END 2022-01-23 08:55 | disposition home or self-care (01) ==
PROVIDERS: Emergency Provider Nurse Practitioner Family; PCP Family Medicine
DX: K59.00 Constipation, unspecified (principal); E11.65 Type 2 diabetes mellitus with hyperglycemia; Z79.84 Long term (current) use of oral hypoglycemic drugs; Z86.711 Personal history of pulmonary embolism
CPT/HCPCS: 74018; 80053; 81003; 81025; 83690; 85025; 96360; 99284; J7030

== ENCOUNTER → 2022-02-24 09:00 | Outpatient (BNVA) | payer BC, SELFPAY | PROVIDERS: Visit Provider Obstetrics & Gynecology | DX: Z12.4 Encounter for screening for malignant neoplasm of cervix (principal) | CPT/HCPCS: 87624 ==

== ENCOUNTER → 2022-03-28 09:23 | Outpatient (BNVA) | payer BC, SELFPAY | PROVIDERS: Visit Provider Obstetrics & Gynecology | DX: D25.1 Intramural leiomyoma of uterus (principal); N39.3 Stress incontinence (female) (male); N81.10 Cystocele, unspecified; N93.9 Abnormal uterine and vaginal bleeding, unspecified; Z01.818 Encounter for other preprocedural examination; N92.1 Excessive and frequent menstruation with irregular cycle; R10.2 Pelvic and perineal pain; G89.29 Other chronic pain | CPT/HCPCS: 80053; 81000; 85025; 86850; 86900 ==

== ENCOUNTER 2022-04-02 15:50 | Observation (INO) | payer BC, MEDICAID, SELFPAY ==
[2022-03-28 11:10] VITALS: BMI 32.3
[2022-04-02] VITALS (18 sets, daily range): BP systolic 102–143; BP diastolic 62–99; PULSE 74–102; RESP 16–18; TEMP 36.4–36.9; O2SAT 94–98
[2022-04-02 09:59] LABS: Glucose Point of Care 175 mg/dL (70-110)
[2022-04-02] MEDS: sodium chloride 0.9% 500 ML IV (10:01)
[2022-04-02] MEDS: scopolamine 1.5 Patch 1 PATCH TRANSDERMA (10:01)
[2022-04-02] MEDS: enoxaparin 30 mg/0.3 mL Syringe SUBCUT (10:02)
--- NOTE | 2022-04-02 10:08 | W.PM.OPSUD ---
Surgery/Procedure H&P Update DATE OF PROCEDURE: April 02, 2022 DATE H&P PERFORMED: 03/28/22 H&P UPDATE INFORMATION: I have reviewed H&P completed within last 30 days, I have examined patient prior to procedure and No changes to prior documentation PREOP DIAGNOSIS: Menorrhagia, cystocele 3, fibroids, RADHA, chronic pelvic pain PLANNED PROCEDURE: Operation Date: 04/02/22 11:15 Proposed Procedures p Laparoscopic Assist Vaginal Hysterectomy(Not Applicable) - Chris Centeno MD s Anterior Repair Anterior Colporrhaphy(Not Applicable) - Chris Centeno MD s Sling(Not Applicable) - Chris Centeno MD
[2022-04-02 10:12] LABS: OR HCG Qualitative Urine Negative (Negative)
--- NOTE | 2022-04-02 10:55 | P.ANESASSM_ITS ---
Pre-Anesthetic Assessment Height/Weight: Height 1.55 m Weight 77.564 kg Temp Pulse Resp BP Pulse Ox 97.7 F 80 18 142/76 97 04/02/22 09:41 04/02/22 09:41 04/02/22 09:41 04/02/22 09:41 04/02/22 09:41 Preop Diagnosis: Menorrhagia, cystocele 3, fibroids, RADHA, chronic pelvic pain Operation Date: 04/02/22 11:15 Proposed Procedures p Laparoscopic Assist Vaginal Hysterectomy(Not Applicable) - Chris Centeno MD s Anterior Repair Anterior Colporrhaphy(Not Applicable) - Chris Centeno MD s Sling(Not Applicable) - Chris Centeno MD Familial anesthetic complications: none Was Beta Aline taken within 24 hours: N/A Was Clonidine taken within 24 hours: N/A Last intake: Intake Last Liquid Date 04/01/22 Last Liquid Time 18:30 Last Solid Date 04/01/22 Last Solid Time 18:30 Social No alcohol and No tobacco Exam alert, oriented x 3, clear to auscultation bilaterally and regular rate & rhythm Airway Submandibular: within normal limits Cervical ROM: within normal limits Mallampati: Class II Dentition: chipped (Missing teeth, front central incisor chipped ) History/ROS No significant complaints Pulmonary Hx of PE CV/HEM Deep Vein Thrombosis Hx of DVT associated with c section, Stefani filter Renal stones Chronic pelvic pain Fibroids GI Gastroesophageal Reflux Disease Metabolic Diabetes Mellitus [facility] [place] None reported Neuropsych Anxiety, Bipolar and Headache Claustrophobia Anesthetic Plan ASA status: 3 (42 year old female with hx of DM, Bipolar, stefani filter, migraines, obesity, HTN) Anesthesia: Anesthesia Evaluation and General Other: We discussed risk and benefits of general anesthesia including PONV, sore throat (sometimes severe), corneal abrasion, positioning and peripheral nerve injuries, life threatening allergic reaction, post operative ICU admission requiring prolonged intubation, stroke, heart attack, , and rare incidences of recall. Patient consents to proceed with general anesthesia. Risk of > 500 ml blood loss (7ml/kg in children): No Medications/Allergies Home Medications Medication Instructions Recorded Confirmed Last Taken Type melatonin 10 mg tablet 5 mg PO BEDTIME tab 03/14/20 04/02/22 03/31/22 History ibuprofen 200 mg tablet 800 mg PO PRN 04/18/20 04/02/22 03/18/22 History naproxen sodium 220 mg tablet 440 mg PO PRN 04/18/20 04/02/22 03/12/22 History (Aleve) escitalopram oxalate 20 mg tablet 20 mg PO DAILY #30 tab 11/18/21 04/02/22 04/01/22 Rx lamotrigine 100 mg tablet 100 mg PO .q am #30 tab 11/18/21 04/02/22 04/01/22 Rx lamotrigine 150 mg tablet 150 mg PO .q hs #30 tab 11/18/21 04/02/22 04/01/22 Rx trazodone 50 mg tablet 50 mg PO .Nightly PRN #30 tab 11/18/21 04/02/22 03/31/22 Rx fenofibrate 50 mg capsule 50 mg PO DAILY #30 cap 01/23/22 04/02/22 04/01/22 Rx glimepiride 2 mg tablet 2 mg PO DAILY 02/24/22 04/02/22 03/31/22 History metformin 500 mg tablet 500 mg PO BID tab 02/24/22 04/02/22 04/01/22 History Allergies Allergy/AdvReac Type Severity Reaction Status Date / Time No Known Allergies Allergy Verified 04/02/22 09:35 [facility] Anesthesia Medical History Bipolar II disorder See subjective information below. DM type 2 (diabetes mellitus, type 2) Stefani filter in place H/O fracture of leg tibial fracture of left leg Migraines Psychiatric care Pulmonary embolism Surgical History H/O section H/O lithotripsy x2 H/O superior vena cava filter placement for PE H/O tubal ligation with section Family History Grandmother Anesthesia complication maternal Diabetes maternal, maternal great Colon cancer paternal, age unknown Family/Other Hyperlipidemia maternal side Hypertension maternal side Thyroid condition nephew Mother Thyroid condition Sister Thyroid condition Grandfather Heart disease maternal and paternal Denies family history of Ovarian cancer Clotting disorder Breast cancer Bleeding disorder Uterine cancer Stroke Social History Smoking and tobacco status: never smoked Second hand smoke exposure: No Alcohol intake: current Alcohol intake frequency: holidays/special occasions only Female Reproductive History Date of last menstrual period: 08/15/21 Data Anesthesia Cardiac Studies: No Data to Display
[2022-04-02] MEDS: sodium chloride 0.9% 1,000 ML 30 ML IV (11:18)
[2022-04-02] MEDS: ceFOXitin 2,000 MG in sodium chloride 0.9% (plus) 50 ML 100 MG IV (12:23)
[2022-04-02] MEDS: estrogens Conjugated Cream 30 gm 1 APPLIC VAGINAL (15:05)
--- NOTE | 2022-04-02 15:12 | P.OP_ITS ---
Operative Report Date of procedure: April 02, 2022 Pre-op diagnosis: Preop Diagnosis Menorrhagia, cystocele 3, fibroids, RADHA, chronic pelvic pain Post-op diagnosis: Same as above Procedure done: Laparoscopic-assisted vaginal hysterectomy. Inguinal incision mid urethral sling. Cystoscopy. Specimens removed/disposition: Uterus Surgeon: Chris Centeno MD Estimated blood loss (mL): 700 IV fluids (mL): 1,500 Urine output (mL): 350 Complications: Small puncture laceration to the bladder. Bleeding Findings: Large lobulated irregular uterus Brief History: Mrs. Pugh 42-year-old female with a history of abnormal uterine bleeding unresponsive to medical management, chronic pelvic pain, urinary incontinence and associated cystocele. Past medical history significant for enlarged uterus with uterine fibroid. Procedure: After informed consent, the patient was taken to the operating room where general anesthesia was administered. Pre-Procedure Time-Out verifying the correct patient identity, correct procedure verified with consent, correct site and side, correct patient position, availability of correct implants and any special equipment or requirements was performed and acknowledge by the OR team. She was placed in the dorsal lithotomy position and prepped and draped in sterile fashion. The patient was examined under anesthesia and found to have a normal uterus with normal adnexa. A Suero catheter was placed in the bladder. A weighted speculum was placed in the vagina, and the anterior lip of cervix was grasped with the single toothed tenaculum. A uterine manipulator was advanced into the endocervical. Tenaculum was removed after uterine manipulator was secured. The speculum was removed from the vagina. The attention was brought to abdomen after changing gloves. The base of the umbilicus was grasped with an Allis clamp and with 2 towel clamp bilaterally tenting up the umbilicus an intraumbilical incision was made with a scalpel. While tenting up on the abdomen, a Verres needle with sleeve was admitted into the intra-abdominal cavity. A saline drop test was performed and noted to be within normal limits. Pneumoperitoneum was attained with 4 liters of carbon dioxide. The Verres needle was removed. Then a 5 mm Optiview trocar and cannula were inserted under direct visualization without complications. Trocars were removed and the laparoscope was inserted and connected to the video camera light source. A 5 mm trocar and cannula were placed in the right lower quadrant under direct visualization after infiltration of 0.5% Marcaine with epinephrine. A 5 mm trocar and cannula were placed in the left lower quadrant under direct visualization after infiltration of 0.5% Marcaine with epinephrine. The pelvic contents were visualized and noted a small uterus, deep cul-de-sac, normal post tubal ligation bilateral fallopian tubes and ovaries, with the right ovary showing follicular cysts and both ureters were identified crossing the pelvic brim and pelvic sidewall. The left utero-ovarian ligament was grasped clamped, coagulated/sealed and transected using Enseal device. The left round ligament was grasped clamped, coagulated/sealed and transected using Ense. The left broad ligament was opened down to the level of the uterine artery and vein. The same procedure was performed on the right side. The Peritoneum of the lower uterine segment and the bladder could not be dissected off the lower uterine segment using blunt dissection because of larged anterior fibroid and adhesions. Careful inspection revealed complete hemostasis. Then proceeded to perform the vaginal hysterecto my. A Bookwalter vaginal retractor was placed into the vagina in usual manner visualize the cervix. Cervix was grasped with a single tooth tenaculum and circumferentially infiltrated with 2% lidocaine with epinephrine. Then cervix was circumferentially incised with bovie and the bladder was dissected off the pubovesical cervical fascia anteriorly with a sponge stick and Metzenbaum scissorswith great difficulty due to adhesion and uterine fibroid. The anterior peritoneal reflection was identified and the anterior cul-de-sac was entered sharply with Metzenbaum scissors. The same procedure was performed posteriorly and a posterior colpotomy was made through the posterior cul-de-sac space without difficulty and the posterior blade of the Bookwalter vaginal retractor was advanced posteriorly into the cul-de-sac. At this time, the left and right uterosacral ligaments were isolated and ligated with 0 Vicryl. The Enseal device was placed over the uterosacral ligaments on either side and w as then used in a serial fashion up through the cardinal ligaments bilaterally cross-clamped, cut, and sealed with the Enseal device. Finally, the uterine arteries were cross-clamped, cut, sealed and ligated with the Enseal device. Hemostasis was assured. The broad ligaments were then serially clamped, sealed and cut with the Enseal device on both sides. Excellent hemostasis was visualized. Both cornua were clamped, sealed and cut with the Enseal device. Due to larged irregular uterine sized the uterus was morcelated with scalpel. The Morcellation of the uterus was performed to deliver through the vagina without complications. Then the pedicles were then suture ligated with excellent hemostasis. The uterus was submitted for pathologic evaluation. No other abnormalities were noted in the pelvic cavity. At this time, instruments were removed from the patient's abdominopelvic cavity. While moving pushing bladder for vaginal closure a small pucture into the bladder occured which was repaired with 3-O vicryl in layer for a water tight closure. The Vaginal cuff closure and peritoneum were incorporated into one layer with 0 Vicryl suture in a continuous running interlocking fashion. Hemostasis was noted to be achieved. After closure was noted the patient did not need an anterior colporrhaphy. And proceeded to perform the single incision mid urethral sling with a stress incontinence. The anterior vaginal mucosa beneath the midurethra was infiltrated with 0.5% Marcaine with epinephrine. A vertical midline incision was made beneath the midurethra, nearly 1.5 cm length. Careful submucosal dissection was performed bilaterally up to the interior portion of the inferior pubic ramus. The insertion of adductor longus tendon on the patient?s pubic ramus was identified as reference land sunday. Palpated the notch along the internal edge of ischiopubic ramus where the adductor longus tendon and the inferior pubic ramus meet. The Altis single incision sling (SIS) was selected. Then the needle of the SIS inserted aiming at the location of this notch. One of the integrated self- fixating tips place onto the needle by sliding it over the end of the needle. The needle/sling assembly was inserted toward the location of identified reference notch making sure that the flat of the handle is perpendicular to the desired path. The needle was tracked along the posterior surface of the ischiopubic ramus until the midline sunday on the mesh is approximately at the midline position under the urethra. The needle was removed and the same was repeated on the contralateral side until the appropriate sling tension under the urethra was achieved ensuring that the mesh lays flat. The needle was removed and vaginal incision was closed in a running interlocking fashion with 2-0 Vicryl. Then the Suero catheter was removed and cystoscope was inserted. The bladder was filled with sterile water. Complete evaluation of the bladder mucosa was performed noting no lacerations, dimpling, tears, bleeding of the mucosa or muscular layers. Both ureteral orifices were identified. Prompt excretion of urine from both ureteral orifices was noted. Cystoscope was withdrawn. The Suero catheter was replaced. Excellent hemostasis was obtained. A vaginal pack is placed overnight as postoperative support for the vaginal tissues after graft placement and closure of vaginal incisions. Sponge, lap, needle, and instrument counts were correct times three. The patient was taken to the recovery room, awake and in stable condition.
[2022-04-02] MEDS: ondansetron 2 mg/ML SDV 2 mL 4 MG IVP ×2 (15:43→15:53)
[2022-04-02] MEDS: ketorolac 30 mg/mL INJ IVP ×2 (16:28→22:11)
[2022-04-02] MEDS: dextrose 5%-lactated ringers 1,000 ML 125 ML IV (16:28)
--- NOTE | 2022-04-02 16:51 | ANE.PACU2 ---
Inpatient post-anesthesia follow up: Airway intact: Yes Vital signs: Temperature 97.6 F Pulse Rate 77 Respiratory Rate 16 Blood Pressure 127/83 Pulse Oximetry 94 Oxygen Delivery Me thod Room Air Oxygen Flow Rate 6 Fraction of Inspir ed Oxygen Hydration adequate: Yes Nausea and vomiting: No Pain level: 1 Mental status: Baseline
[2022-04-02] MEDS: metformin 500 mg Tablet PO (18:25)
[2022-04-02] MEDS: docusate sodium 100 mg Capsule PO (18:25)
[2022-04-02] MEDS: HYDROcodone-acetaminophen 5-325 mg Tablet PO (19:58)
[2022-04-02] MEDS: lamoTRIgine 100 mg Tablet 150 MG PO (21:16)
[2022-04-03] VITALS: BP 100/63; PULSE 99; RESP 16; O2SAT 96
[2022-04-03] MEDS: trazodone 50 mg Tablet PO (00:24)
[2022-04-03] MEDS: HYDROcodone-acetaminophen 5-325 mg Tablet PO ×2 (02:05→10:30)
[2022-04-03 04:00] VITALS: PULSE 65; RESP 15; TEMP 36.8; O2SAT 97
[2022-04-03] MEDS: ketorolac 30 mg/mL INJ IVP (04:00)
[2022-04-03 05:27] VITALS: BP 103/67
[2022-04-03 05:40] LABS: Hematocrit 27.6 % (37.0-47.0); Mean Corpuscular HGB Conc 32.6 g/dL (30.0-36.0); Mean Corpuscular Hemoglobin 28.7 pg (28.0-34.0); Mean Corpuscular Volume 87.9 fl (81-99); Mean Platelet Volume 10.9 fL (7.4-10.4); Platelet Count 160 10^3/cmm (130-400); Red Blood Count 3.14 10^6/uL (4.1-5.3); Red Cell Distribution Width 14.7 % (12.1-15.1)
[2022-04-03] MEDS: lamoTRIgine 100 mg Tablet PO (06:29)
--- NOTE | 2022-04-03 06:35 | PC.NURSE ---
This nurse pulled vag packing @ 0066 on 04/03/22
[2022-04-03] MEDS: escitalopram 10 mg Tablet 20 MG PO (09:00)
[2022-04-03] MEDS: glimepiride 2 mg Tablet PO (09:00)
[2022-04-03] MEDS: metformin 500 mg Tablet PO (09:04)
[2022-04-03] MEDS: docusate sodium 100 mg Capsule PO (09:04)
--- NOTE | 2022-04-03 09:23 | P.DS_ITS ---
Discharge Providers ENTRY EXAMINER Date of Admission: 04/02/22 15:50 Date of Discharge: 04/03/22 Attending Provider at Admission: Chris Centeno MD Attending Provider at Discharge: Chris Centeno MD Primary Care Provider: Anibal Fried DO Reason for Visit Reason for Visit: D25.1 Intramural Leiomyoma of uterus Brief History: Mrs Pugh 42-year-old female with a history of abnormal uterine bleeding unresponsive to medical management limited treatment due to history of blood clots, history of chronic pelvic pain, urinary stress incontinence and diagnosed with a uterine fibroid. Hospital Course Hospital Course Mrs. Pugh admitted for planned laparoscopic assisted vaginal hysterectomy, anterior colporrhaphy and single incision mid urethral sling. Laparoscopic- assisted vaginal hysterectomy was performed complicated by small puncture to the bladder at the time of vaginal cuff closure. Single incision mid urethral sling was placed without complications. Postop overnight observation was uneventful, with adequate urine output. She is afebrile and hemodynamically stable postoperative day 1. Tolerating diet well. Ambulating without difficulty. Passing flatus. Discharged home with Suero catheter and instructed to follow-up at the clinic next week. Physical Exam 2 Narrative: GA: Alert and oriented ?3. HEENT: WNL. Heart: Regular rate and rhythm. Lungs: Clear to auscultation bilaterally. Abdomen: Bowel sounds present, minimal tenderness, incision clean and dry, no redness, pain or edema. 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 Extremities: No edema, no cyanosis, no calves pain. Urinary Catheter Management: Suero: Cath Placed During This Visit: yes Urinary Catheter Date of Insertion: 04/02/22 Urinary Catheter Time of Insertion: 12:55 History History History 4 Term 3 Miscarriages/Ectopic 1 0 Living Children 3 Discharge Data Studies Completed and Pending Pending at discharge Category Date Time Status ES surgery / GI images Routine Exams 04/02/22 12:03 Taken Pathology: Surgical [PTH] Routine Pth 04/02/22 15:19 Received Laboratory Results WBC 8.0 10^3/uL (4.0-10.0) 04/03/22 05:25 RBC 3.14 10^6/uL (4.1-5.3) L 04/03/22 05:25 Hgb 9.0 g/dL (11.5-15.3) L 04/03/22 05:25 Hct 27.6 % (37.0-47.0) L 04/03/22 05:25 MCV 87.9 fl (81-99) 04/03/22 05:25 MCH 28.7 pg (28.0-34.0) 04/03/22 05:25 MCHC 32.6 g/dL (30.0-36.0) 04/03/22 05:25 RDW 14.7 % (12.1-15.1) 04/03/22 05:25 Plt Count 160 10^3/cmm (130-400) 04/03/22 05:25 MPV 10.9 fL (7.4-10.4) H 04/03/22 05:25 POC Glucose 175 mg/dL (70-110) H 04/02/22 09:56 Urine HCG, Qual Negative (Negative) 04/02/22 09:43 Blood Type O Positive 04/02/22 10:35 Rho(D) Type Positive 04/02/22 10:35 Vitals Last Vital Signs Temp 98.2 F 04/03/22 04:00 Pulse 65 04/03/22 04:00 Resp 15 04/03/22 04:00 BP 103/67 04/03/22 05:27 Pulse Ox 97 04/03/22 04:00 Discharge Plan Discharge Patient Disposition: Home Condition: Stable Prescriptions: New hydrocodone-acetaminophen 5-325 mg tablet 1 tab PO Q4H PRN (Reason: pain) Qty: 30 0RF acetaminophen 325 mg capsule 325 mg PO Q4H PRN (Reason: fever or pain) Qty: 60 0RF ferrous sulfate [Iron (ferrous sulfate)] 325 mg (65 mg iron) tablet 325 mg PO BID Qty: 60 0RF nitrofurantoin monohyd/m-cryst 100 mg capsule 100 mg PO BID 7 Days Qty: 14 0RF Rx Instructions: must administer with a meal/food docusate sodium [Colace] 100 mg capsule 100 mg PO BID Qty: 60 0RF ibuprofen 800 mg tablet 800 mg PO TID PRN (Reason: pain) Qty: 60 0RF Continued escitalopram oxalate 20 mg tablet 20 mg PO DAILY Qty: 30 2RF Rx Instructions: Take 1 tablet daily by mouth lamotrigine 150 mg tablet 150 mg PO .q hs Qty: 30 2RF Rx Instructions: take one tablet by mouth at bedtime lamotrigine 100 mg tablet 100 mg PO .q am Qty: 30 2RF Rx Instructions: Take one tablet by mouth every morning trazodone 50 mg tablet 50 mg PO .Nightly PRN (Reason: insomnia) Qty: 30 2RF Rx Instructions: Take 1 tablet daily at bedtime, if needed for insomnia melatonin 10 mg tablet 5 mg PO BEDTIME 0RF glimepiride 2 mg tablet 2 mg PO DAILY 0RF fenofibrate 50 mg capsule 50 mg PO DAILY Qty: 30 5RF metformin 500 mg tablet 500 mg PO BID 0RF naproxen sodium [Aleve] 220 mg Tablet 440 mg PO PRN 0RF ibuprofen 200 mg Tablet 800 mg PO PRN 0RF Discharge Orders: Discharge Order (Routine); Ordered 04/03/22 Ordered By: Chris Centeno Referrals: Chris Centeno MD [Physician] - 7-10 days Discharge Diet: Usual diet Discharge Activity: Limit activity as instructed Patient Instructions: Opioid Safety Discharge Attestations ENTRY EXAMINER Time Spent in Discharge Care*: greater than 30 min Coding Level of Care Code Acute Sales Project Coordinator for Padmini Castro
[2022-04-03 10:45] VITALS: BP 118/64; PULSE 84; RESP 18; TEMP 36.7; O2SAT 98
== END 2022-04-03 10:45 | disposition home or self-care (01) ==
LOC: OBGYN 16:02
PROVIDERS: Admitting Provider Obstetrics & Gynecology; PCP Family Medicine; Visit Provider Obstetrics & Gynecology
PROC: 0UT9FZZ Resection of Uterus, Via Natural or Artificial Opening With Percutaneous Endoscopic Assistance (ICD-10-PCS; CPT 58550; principal; 2022-04-02 11:05)
PROC: (CPT 57288; 2022-04-02 11:05)
DX: N92.0 Excessive and frequent menstruation with regular cycle (principal); N81.10 Cystocele, unspecified; D25.9 Leiomyoma of uterus, unspecified; N39.3 Stress incontinence (female) (male); R10.2 Pelvic and perineal pain; G89.29 Other chronic pain; Z86.718 Personal history of other venous thrombosis and embolism; K21.9 Gastro-esophageal reflux disease without esophagitis; E11.9 Type 2 diabetes mellitus without complications; E66.9 Obesity, unspecified; Z68.32 Body mass index [BMI] 32.0-32.9, adult; Z86.711 Personal history of pulmonary embolism
CPT/HCPCS: 58550; S2900; 36415; 36416; 81025; 82962; 84703; 85027; 86900; 88307; C1713; G0378; J0694; J1100; J1200; J1650; J1885; J2250; J2405; J2704; J2710; J3010; J3490; J7030; J7040; Q9968

== ENCOUNTER 2022-04-06 21:19 | Emergency (ER) | payer BC, MEDICAID, SELFPAY ==
[2022-04-06 21:47] VITALS: BMI 32.1
[2022-04-06 21:50] VITALS: BP 134/82; PULSE 92; RESP 16; TEMP 37.8; O2SAT 95
--- NOTE | 2022-04-06 23:16 | CTR_ITS ---
PROCEDURE INFORMATION: Exam: CT Abdomen And Pelvis With Contrast Exam date and time: 04/06/2022 11:58 PM Age: 42 years old Clinical indication: Abdominal pain; Generalized; Prior surgery; Surgery date: 3-7 days post-operative; Surgery type: Hysterectomy. PT had previous filter insertion, kidney stone SX and c sections previously; Patient HX: Hysterectomy 4 days ago. PT says bladder was cut during SX. Has a catheter. Pain all over abd and back; Additional info: Post op pain and fever TECHNIQUE: Imaging protocol: Computed tomography of the abdomen and pelvis with contrast. Radiation optimization: All CT scans at this facility use at least one of these dose optimization techniques: automated exposure control; mA and/or kV adjustment per patient size (includes targeted exams where dose is matched to clinical indication); or iterative reconstruction. Contrast material: OMNI 300; Contrast volume: 95 ml; Contrast route: INTRAVENOUS (IV); COMPARISON: CT Abdomen/Pelvis Renal [id number] 06/24/2019 10:07 AM RADIATION DOSE METRICS: Total DLP (mGy-cm): 1916 FINDINGS: Lungs: Mild compressive atelectasis noted in the lower lobes. Pleural spaces: Small bilateral pleural effusions. Impression this is associated with mild compressive atelectasis in the lower lobes. Liver: The liver is enlarged, measuring 23 cm in length. Decreased hepatic density is noted, consistent with severe hepatic steatosis. Gallbladder and bile ducts: Contracted gallbladder noted. No calcified gallstones. Pancreas: The pancreas is normal in appearance. No pancreatic duct dilatation. Spleen: The spleen is normal in size and appearance. Adrenal glands: The adrenal glands appear within normal limits. Kidneys and ureters: Nonobstructing bilateral 2 mm renal calculi. No hydronephrosis. No cyst or solid mass. Ureters are unremarkable. No obstructive uropathy. Stomach and bowel: No acute gastric abnormality demonstrated. The small bowel is unremarkable as demonstrated. Appendix: The appendix is normal in appearance. No evidence of appendicitis. Intraperitoneal space: No pneumoperitoneum. No significant fluid collection. Vasculature: There is an IVC filter present. Minimal atherosclerosis of the aorta. No aortic aneurysm. Lymph nodes: No pathologically enlarged lymph nodes. Urinary bladder: There is a Suero catheter in the urinary bladder. Reproductive: The uterus is not visualized, consistent with hysterectomy. Bones/joints: Unremarkable. No acute osseous abnormality. Soft tissues: Unremarkable. CT/CT abdomen pelvis w con* [id number] IMPRESSION: 1. The liver is enlarged, measuring 23 cm in length. Decreased hepatic density is noted, consistent with severe hepatic steatosis. 2. Bilateral nephrolithiasis. 2 mm nonobstructing calculi are noted. No obstructive uropathy. 3. No acute abnormality demonstrated in the abdomen and pelvis. COMMENTS: For patients with an IVC filter, recommend assessment for a management plan for the patient's IVC filter. If there is no established management plan, recommend referral to an interventional clinician on a nonemergent basis for evaluation.
[2022-04-06 23:50] LABS: Basophils % 0.5 %; Eosinophils # 0.2 10^3/uL (0.0-0.8); Eosinophils % 1.9 %; Hemoglobin 9.7 g/dL (11.5-15.3); Lymphocytes # 1.8 10^3/uL (0.8-4.8); Lymphocytes % 21.1 %; Mean Corpuscular HGB Conc 32.3 g/dL (30.0-36.0); Mean Corpuscular Volume 86.5 fl (81-99); Mean Platelet Volume 9.9 fL (7.4-10.4); Monocytes # 0.6 10^3/uL (0.2-0.9); Monocytes % 7.3 %; Neutrophils # 5.71 10^3/uL (1.8-7.7); Neutrophils % 66.7 %; Nucleated Red Blood Cells % 0.5 %; Platelet Count 361 10^3/cmm (130-400); Red Blood Count 3.47 10^6/uL (4.1-5.3); Red Cell Distribution Width 14.5 % (12.1-15.1); White Blood Count 8.5 10^3/uL (4.0-10.0)
[2022-04-07] VITALS: BP 136/90; PULSE 87; RESP 18; O2SAT 94
[2022-04-07] MEDS: iohexol 300 mg/mL 100 mL Btl IV (00:05)
[2022-04-07 00:08] LABS: Lactic Sepsis W/Reflex 1.5 mmol/L (0.5-2.2)
[2022-04-07 00:09] LABS: Alanine Aminotransferase 29 U/L (0-33); Albumin Level 4.3 g/dL (3.5-5.2); Alkaline Phosphatase 66 IU/L (35-105); Anion Gap 18.2 (5-19); Aspartate Amino Transferase 26 U/L (0-32); Blood Urea Nitrogen 9 mg/dL (6-20); C Reactive Protein 128.5 mg/L (0.0-4.9); Calcium 9.4 mg/dL (8.5-10.5); Carbon Dioxide 21 mmol/L (22-29); Chloride 101 mmol/L (98-107); Globulin 2.7 g/dL (1.3-4.6); Glomerular Filtration Rate 176.8 mL/min (90-130); Glucose 161 mg/dL (65-115); Lipase 37 U/L (13-60); Osmolality Calculated 284 mOsm/kg (285-295); Potassium 4.2 mmol/L (3.5-5.1); Sodium 136 mmol/L (136-145); Total Bilirubin 0.3 mg/dL (0.15-1.2)
[2022-04-07 00:58] VITALS: TEMP 36.9
[2022-04-07] MEDS: sodium chloride 0.9% 1,000 ML 999 ML IV (01:10)
[2022-04-07] MEDS: ondansetron 2 mg/ML SDV 2 mL 4 MG IVP (01:33)
[2022-04-07] MEDS: HYDROmorphone 1 mg/mL INJ 1 mL IVP (01:33)
[2022-04-07 01:43] VITALS: BP 133/89; PULSE 84; RESP 18; O2SAT 97
[2022-04-07 02:00] LABS: Add Urine Microscopic? YES; Bilirubin Urine Neg (Negative); Blood Urine 2+ (Negative); Glucose Urine UA 4+ (Normal); Ketones Urine 1+ (Negative); Leukocyte Esterase Urine Negative (Negative); Nitrate Urine Negative (Negative); Protein Urine Neg (Negative); Sulfosalicylic Acid Urine Negative (Negative); Urine Appearance Clear (CLEAR); Urine Color Yellow (Yellow); Urobilinogen Urine Norm (Negative); pH Urine 8 (5-7)
[2022-04-07 02:01] LABS: Add Urine Culture? Yes; Bacteria Urine TRACE /hpf; RBC Urine 15-25 /hpf (0-2); Squamous Epithelial Cell Urine 0-4 /hpf (0-5); WBC Urine 0-4 /hpf (0-5)
[2022-04-07 02:28] VITALS: BP 127/87; PULSE 85; RESP 16; O2SAT 98
[2022-04-07] MEDS: HYDROmorphone 1 mg/mL INJ 1 mL 0.5 MG IVP (03:30)
[2022-04-07] MEDS: doxycycline 100 mg Tablet PO (03:43)
--- NOTE | 2022-04-11 00:57 | ED_ITS ---
HPI - Female Genitourinary General: Chief complaint: Urogenital-Female Stated complaint: fever post op Time Seen by Provider: 04/06/22 23:15 Source: patient History of Present Illness: 42yo female with hx of elective hysterectomy 4 days ago presenting with an increase in abd pain and a fever. She has an indwelling foely catheter, evidently after her bladder being knicked in surgery. Fever started today and was >101 at home. increased mainly periumbilic al abdominal pain since yesterday. She is nauseated. she had been doing very well until this point. MD elicited complaint: vaginal bleeding, pelvic pain and other Pertinent past history: urinary incontinence Onset (ago): hour(s) Location of symptoms: suprapubic Severity: moderate Female Urogenital Radiation: Non-Radiating Quality of pain: cramping and sharp Consistency: constant Vaginal discharge: none Vaginal bleeding: scant Associated symptoms: Reports abdominal pain, fevers/chills and nausea; Deny short of breath or headache(s) Treatment prior to arrival: other Sexual activity: No Date of Last Menstrual Period: 08/15/21 Review of Systems Const: Reports: fever(s) and body aches; Denies: chills ENMT: Denies: throat pain Card: Denies: chest pain Resp: Denies: dyspnea, productive cough or non-productive cough GI: Reports: abdominal pain and nausea; Denies: vomiting or diarrhea Skin/Breast: Reports: other (some clear drainage from port incision); Denies: rash Neuro: Denies: headache(s) PFS ED PFSH: Medical History (Updated 04/07/22 @ 02:49 by Justo Ugalde DO) Bipolar II disorder See subjective information below. DM type 2 (diabetes mellitus, type 2) [place] filter in place H/O fracture of leg tibial fracture of left leg Migraines Psychiatric care Pulmonary embolism Surgical History (Updated 04/11/22 @ 07:39 by Kornia Luke RN) H/O section H/O lithotripsy x2 H/O superior vena cava filter placement for PE H/O tubal ligation with section Family History Grandmother Anesthesia complication maternal Diabetes maternal, maternal great Colon cancer paternal, age unknown Family/Other Hyperlipidemia maternal side Hypertension maternal side Thyroid condition nephew Mother Thyroid condition Sister Thyroid condition Grandfather Heart disease maternal and paternal Denies family history of Ovarian cancer Clotting disorder Breast cancer Bleeding disorder Uterine cancer Stroke Social History Smoking and tobacco status: never smoked Second hand smoke exposure: No Alcohol intake: current Alcohol intake frequency: holidays/special occasions only Female Reproductive History: Date of last menstrual period: 08/15/21 Physical Exam Const: GENERAL APPEARANCE: cooperative; not frail appearing HENMT: COMMON NORMALS: normocephalic, atraumatic and Normal external nose pre sent HEAD & SCALP: normocephalic and atraumatic NOSE: Normal external nose present Eye: COMMON NORMALS: Equal, round and reactive pupils present and EOMs intact bilaterally PUPIL: Yes Equal, round and reactive pupils present Neck/C-Spine: GENERAL: Yes trachea midline Chest: CHEST: Yes Symmetrical chest wall rise Resp: COMMON NORMALS: normal respiratory effort, No retractions, No use of accessory muscles and clear to auscultation bilaterally AUSCULTATION: clear to auscultation bilaterally Cardio: COMMON NORMALS: regular rate and regular rhythm RATE: regular rate RHYTHM: regular rhythm GI: COMMON NORMALS: Soft to palpation INSPECTION: Yes normal to inspection and Yes incision (no active drainage currently) Inspection of incision: healing well PALPATION: Yes Soft to palpation and Yes Tenderness to palpation present (GI) (diffuse) Extremity: COMMON NORMALS: normal to inspection Neuro: SUNITA COMA SCALE: document GCS findings Sunita coma scale eye opening: Spontaneous Sunita coma scale verbal response: Orientated Sunita coma scale motor response: Obey commands Sunita coma scale total score: 15 Skin: NARRATIVE SKIN EXAM: see abdominal exam Course Vital Signs: Vital signs: Vital Signs Temperature 98.5 F 04/07/22 00:58 Pulse Rate 85 04/07/22 02:28 Respiratory Rate 16 04/07/22 02:28 Blood Pressure 127/87 04/07/22 02:28 Pulse Oximetry 98 04/07/22 02:28 MDM - Female Medical Decision Making Pt has a hemoglobin of 9.7 rebounding from 9 after hospitalization. No leukocytosis. BMP essentially normal. CT shows no acute abnormality, particulary no concern for surgical complication. Urinalysis shows hematuria without infection. Will cover with antibiotics given recent surgery. close outpt fu with her surgeon on thursday. to return if worsening symptoms. Lab Data : 04/06/22 23:45 04/06/22 23:45 Radiology Impressions Abdomen/Pelvis CT 04/06/22 23:16 IMPRESSION: 1. The liver is enlarged, measuring 23 cm in length. Decreased hepatic density is noted, consistent with severe hepatic steatosis. 2. Bilateral nephrolithiasis. 2 mm nonobstructing calculi are noted. No obstructive uropathy. 3. No acute abnormality demonstrated in the abdomen and pelvis. COMMENTS: For patients with an IVC filter, recommend assessment for a management plan for the patient's IVC filter. If there is no established management plan, recommend referral to an interventional clinician on a nonemergent basis for evaluation. Laboratory Results WBC 8.5 10^3/uL (4.0-10.0) 04/06/22 23:45 RBC 3.47 10^6/uL (4.1-5.3) L 04/06/22 23:45 Hgb 9.7 g/dL (11.5-15.3) L 04/06/22 23:45 Hct 30.0 % (37.0-47.0) L 04/06/22 23:45 MCV 86.5 fl (81-99) 04/06/22 23:45 MCH 28.0 pg (28.0-34.0) 04/06/22 23:45 MCHC 32.3 g/dL (30.0-36.0) 04/06/22 23:45 RDW 14.5 % (12.1-15.1) 04/06/22 23:45 Plt Count 361 10^3/cmm (130-400) 04/06/22 23:45 MPV 9.9 fL (7.4-10.4) 04/06/22 23:45 Neut % (Auto) 66.7 % 04/06/22 23:45 Lymph % (Auto) 21.1 % 04/06/22 23:45 [place] % (Auto) 7.3 % 04/06/22 23:45 Eos % (Auto) 1.9 % 04/06/22 23:45 Baso % (Auto) 0.5 % 04/06/22 23:45 Neut # (Auto) 5.71 10^3/uL (1.8-7.7) 04/06/22 23:45 Lymph # (Auto) 1.8 10^3/uL (0.8-4.8) 04/06/22 23:45 [place] # (Auto) 0.6 10^3/uL (0.2-0.9) 04/06/22 23:45 Eos # (Auto) 0.2 10^3/uL (0.0-0.8) 04/06/22 23:45 Baso # (Auto) 0.0 10^3/uL (0.0-0.1) 04/06/22 23:45 Nucleated RBC % (auto) 0.5 % 04/06/22 23:45 Nucleated RBCs # 0.0 /100WBC 04/06/22 23:45 Sodium 136 mmol/L (136-145) 04/06/22 23:45 Potassium 4.2 mmol/L (3.5-5.1) 04/06/22 23:45 Chloride 101 mmol/L (98-107) 04/06/22 23:45 Carbon Dioxide 21 mmol/L (22-29) L 04/06/22 23:45 Anion Gap 18.2 (5-19) 04/06/22 23:45 BUN 9 mg/dL (6-20) 04/06/22 23:45 Creatinine 0.4 mg/dL (0.5-0.9) L 04/06/22 23:45 GFR Calculation 176.8 mL/min (90-130) H 04/06/22 23:45 Glucose 161 mg/dL (65-115) H 04/06/22 23:45 Calculated Osmolality 284 mOsm/kg (285-295) L 04/06/22 23:45 Lactic Acid 1.5 mmol/L (0.5-2.2) 04/06/22 23:45 Calcium 9.4 mg/dL (8.5-10.5) 04/06/22 23:45 Total Bilirubin 0.3 mg/dL (0.15-1.2) 04/06/22 23:45 AST 26 U/L (0-32) 04/06/22 23:45 ALT 29 U/L (0-33) 04/06/22 23:45 Alkaline Phosphatase 66 IU/L (35-105) 04/06/22 23:45 C-Reactive Protein 128.5 mg/L (0.0-4.9) H 04/06/22 23:45 Total Protein 7.0 g/dL (6.6-8.7) 04/06/22 23:45 Albumin 4.3 g/dL (3.5-5.2) 04/06/22 23:45 Globulin 2.7 g/dL (1.3-4.6) 04/06/22 23:45 Lipase 37 U/L (13-60) 04/06/22 23:45 Urine Color Yellow (Yellow) 04/07/22 01:13 Urine Appearance Clear (CLEAR) 04/07/22 01:13 Urine pH 8 (5-7) H 04/07/22 01:13 Ur Specific [place] 1.010 (1.005-1.030) 04/07/22 01:13 Urine Protein Neg (Negative) 04/07/22 01:13 Urine Glucose (UA) 4+ (Normal) H 04/07/22 01:13 Urine Ketones 1+ (Negative) H 04/07/22 01:13 Urine Blood 2+ (Negative) H 04/07/22 01:13 Urine Nitrate Negative (Negative) 04/07/22 01:13 Urine Bilirubin Neg (Negative) 04/07/22 01:13 Prot Sulfosalicylic Acd Negative (Negative) 04/07/22 01:13 Urine Urobilinogen Norm mg/dL (Negative) 04/07/22 01:13 Ur Leukocyte Esterase Negative (Negative) 04/07/22 01:13 Urine RBC 15-25 /hpf (0-2) H 04/07/22 01:13 Urine WBC 0-4 /hpf (0-5) H 04/07/22 01:13 Ur Squamous Epith Cells 0-4 /hpf (0-5) H 04/07/22 01:13 Amorphous Sediment Not Reportable 04/07/22 01:13 Urine Bacteria Trace /hpf (NONE) 04/07/22 01:13 Discharge Plan Discharge Patient Disposition: Home Clinical Impression: Fever postop Condition: Stable Prescriptions: New doxycycline hyclate 100 mg tablet 100 mg PO BID 7 Days Qty: 14 0RF hydrocodone-acetaminophen 5-325 mg tablet 1 tab PO Q8H PRN (Reason: pain) Qty: 7 0RF No Action escitalopram oxalate 20 mg tablet 20 mg PO DAILY Qty: 30 2RF Rx Instructions: Take 1 tablet daily by mouth lamotrigine 150 mg tablet 150 mg PO .q hs Qty: 30 2RF Rx Instructions: take one tablet by mouth at bedtime lamotrigine 100 mg tablet 100 mg PO .q am Qty: 30 2RF Rx Instructions: Take one tablet by mouth every morning trazodone 50 mg tablet 50 mg PO .Nightly PRN (Reason: insomnia) Qty: 30 2RF Rx Instructions: Take 1 tablet daily at bedtime, if needed for insomnia melatonin 10 mg tablet 5 mg PO BEDTIME 0RF glimepiride 2 mg tablet 2 mg PO DAILY 0RF fenofibrate 50 mg capsule 50 mg PO DAILY Qty: 30 5RF metformin 500 mg tablet 500 mg PO BID 0RF naproxen sodium [Aleve] 220 mg Tablet 440 mg PO PRN 0RF ibuprofen 200 mg Tablet 800 mg PO PRN 0RF acetaminophen 325 mg capsule 325 mg PO Q4H PRN (Reason: fever or pain) Qty: 60 0RF ibuprofen 800 mg tablet 800 mg PO TID PRN (Reason: pain) Qty: 60 0RF hydrocodone-acetaminophen 5-325 mg tablet 1 tab PO Q4H PRN (Reason: pain) Qty: 30 0RF Iron (ferrous sulfate) 325 mg (65 mg iron) tablet 325 mg PO BID Qty: 60 0RF Colace 100 mg capsule 100 mg PO BID Qty: 60 0RF Discharge Orders: Discharge ED (Routine); Ordered 04/07/22 Ordered By: Justo Ugalde Referrals: Chris Centeno MD [Physician] - 1-3 days Anibal Fried DO [Primary Care Provider] - Patient Instructions: Fever in Adults (ED), Opioid Safety Activity Restrictions/Additional Instructions: Return for worsening pain despite treatment, fever despite 2-3 doses of antibiotics, drainage from your incision, any other concerning symptoms. Call your doctor later today to report to them how you are feeling. They may wish to see you or perform further outpatient tests Coding Level of Care Code ED Cardiac Cath Technician for Padmini Castro
== END 2022-04-07 03:47 | disposition home or self-care (01) ==
PROVIDERS: Nurse Practitioner Family; Emergency Provider Emergency Medicine; PCP Family Medicine
DX: R50.9 Fever, unspecified (principal)
CPT/HCPCS: 74177; 80053; 81001; 83605; 83690; 85025; 86140; 87040; 87086; 96361; 96374; 96375; 99284; J1170; J2405; J7030; Q9967

== ENCOUNTER → 2022-05-16 14:44 | Outpatient (BNVA) | payer BC, SELFPAY | PROVIDERS: PCP Family Medicine; Visit Provider Obstetrics & Gynecology | DX: R23.2 Flushing (principal); Z48.816 Encounter for surgical aftercare following surgery on the genitourinary system; N89.8 Other specified noninflammatory disorders of vagina | CPT/HCPCS: 83001 ==

== ENCOUNTER 2022-10-17 10:06 | Outpatient (CLI) | payer BC, SELFPAY ==
--- NOTE | 2022-10-17 10:18 | MM_ITS ---
WS: [id number] Bilateral screening 3D tomosynthesis digital mammogram, 10/17/2022 Clinical Data: SCREENING Comparison: None. Findings: The breast parenchymal pattern shows fibroglandular tissue. No spiculated masses or clustered calcifi cations are seen. There are no secondary signs of carcinoma. MM/[place] [id number] Impression: 1. Negative bilateral mammogram with no prior exam for review. 2. Recommend annual screening mammograms. BIRADS: 1-Negative FOLLOW UP: 1 Year Follow-up The CAD bakery products checker was used.
== END 2022-10-17 10:07 | disposition home or self-care (01) ==
LOC: RAD 10:07
PROVIDERS: PCP Family Medicine; Visit Provider Family Medicine
DX: Z12.31 Encounter for screening mammogram for malignant neoplasm of breast (principal)
CPT/HCPCS: 77063; 77067

== ENCOUNTER → 2022-11-10 10:28 | Outpatient (BNVA) | payer BC, MEDICAID, SELFPAY | PROVIDERS: PCP Family Medicine; Visit Provider Family Medicine | DX: Z00.00 Encounter for general adult medical examination without abnormal findings (principal); E78.1 Pure hyperglyceridemia; E11.9 Type 2 diabetes mellitus without complications | CPT/HCPCS: 80053; 83036; 84439; 84443; 85025 ==

== ENCOUNTER 2023-01-30 10:19 | Outpatient (CLI) | payer BC, MEDICAID, SELFPAY ==
--- NOTE | 2023-01-30 10:20 | XR_ITS ---
WS: [id number] Exam: XR tibia fibula LT 2V [id number] Date/Time of Exam: 01/30/2023 10:24 AM Reason For Exam: painful, palpable screw No acute fracture or dislocation. Healed fracture of the lower tibia is noted. A long intramedullary elzbieta is noted in the tibia with transverse screws at both the proximal and distal end of the elzbieta. The inferior most screw in the elzbieta at the level of the ankle extends into the fibula with some lucent samra ction around the distal end of the screw which may be from motion. This appears to cause mild erosion of the fibula. The lower leg is otherwise unremarkable. XR/XR tibia fibula LT 2V [id number] IMPRESSION: 1. No acute fracture. 2. Healed fracture of the lower tibia with long intramedullary elzbieta and transver se screws in place as noted above. See above discussion.
--- NOTE | 2023-01-30 10:20 | XR_ITS ---
WS: [id number] Exam: XR ankle LT min 3V* [id number] Date/Time of Exam: 01/30/2023 10:24 AM Reason For Exam: painful, palpable screw No acute fracture or dislocation. There is an intramedullary elzbieta in the lower tibia stabilized with 2 transverse screws. The inferior most screw extends into the fibula. This screw shows lucent reaction around the distal end of the screw that may be from motion. The ankle mortise is intact. The soft ti ssues are normal. XR/XR ankle LT min 3V* [id number] IMPRESSION: 1. No acute fracture. 2. Intramedullary elzbieta in the lower tibia with 2 transverse screws. The lower sc rew and intramedullary elzbieta extends into the fibula and has some lucent reaction about the distal end of the screw. This could be secondary to motion with some erosion of the fibula.
== END 2023-01-30 10:20 | disposition home or self-care (01) ==
PROVIDERS: PCP Family Medicine; Visit Provider Family Medicine
DX: T84.84XA Pain due to internal orthopedic prosthetic devices, implants and grafts, initial encounter (principal); Z87.81 Personal history of (healed) traumatic fracture; X58.XXXA Exposure to other specified factors, initial encounter; R41.3 Other amnesia; E78.1 Pure hyperglyceridemia; E11.9 Type 2 diabetes mellitus without complications; Z79.899 Other long term (current) drug therapy
CPT/HCPCS: 73590; 73610; 80053; 80061; 80175; 82607; 83036; 83721; 84443; 85025

== ENCOUNTER → 2023-02-04 06:59 | Outpatient (BNVA) | payer BC, SELFPAY | PROVIDERS: PCP Family Medicine; Visit Provider Family Medicine | DX: E78.1 Pure hyperglyceridemia (principal); E11.9 Type 2 diabetes mellitus without complications | CPT/HCPCS: 80053; 80061 ==

== ENCOUNTER 2023-03-20 06:36 | Emergency (ER) | payer BC, MEDICAID, SELFPAY ==
[2023-03-20 06:43] VITALS: BP 144/89; PULSE 78; RESP 16; TEMP 36.9; O2SAT 98; BMI 31.1
--- NOTE | 2023-03-20 06:48 | ED_ITS ---
HPI - Back Pain/Injury General: Chief Complaint: Back Pain/Injury Stated Complaint: Lower back pain Time Seen by Provider: 03/20/23 06:41 Source: patient Mode of arrival: ambulatory History of Present Illness: 43-year-old female with right-sided flank pain radiating down into the groin on the right. She denies any fever sweats chills hematuria dysuria urgency or frequency. She is diabetic. She has a history of kidney stones states this feels like previous kidney stones. Symptoms began 2 days ago and had been intermittent or progressively worsening to the point where yesterday she began having nausea. No recent injury no precipitating episodes. MD elicited complaint: back pain Quality: sharp Location: right flank Exacerbating factors: none Relieving factors: none Associated symptoms: Reports nausea; Deny abdominal pain, arthralgias, chills, change in bowel habits, difficulty walking, dysuria, fatigue, fecal incontinence, fever(s), hematuria, myalgias, numbness, syncope, tingling/numbness/burning, urinary frequency, urinary urgency, vomiting or weakness Review of Systems Const: Denies: fever(s), chills, fatigue or malaise ENMT: Denies: throat pain, ear or mastoid pain, nasal discharge or nasal congestion Card: Denies: chest pain or syncope Resp: Denies: dyspnea, productive cough or non-productive cough GI: Reports: nausea; Denies: abdominal pain, vomiting, fecal incontinence or change in bowel habits : Denies: dysuria, urinary frequency, urinary urgency or hematuria Skin/Breast: Denies: rash or pruritus Neuro: Denies: difficulty walking PFSH ED PFSH: Medical History Bipolar II disorder DM type 2 (diabetes mellitus, type 2) [place] filter in place History of pulmonary embolus during History of tibial fracture Migraines Psychiatric care Surgical History History of section History of hysterectomy History of lithotripsy History of superior vena cava filter placement History of surgery on lower extremity repair of l tibia fracture, hardware in place Family History Grandmother Anesthesia complication maternal Diabetes maternal, maternal great Colon cancer paternal, age unknown Family/Other Hyperlipidemia maternal side Hypertension maternal side Thyroid condition nephew Mother Thyroid condition Sister Thyroid condition Grandfather Heart disease maternal and paternal Denies family history of Ovarian cancer Clotting disorder Breast cancer Bleeding disorder Uterine cancer Stroke Social History Smoking and tobacco status: never smoked Second hand smoke exposure: Yes Alcohol intake: current Alcohol intake frequency: holidays/special occasions only Marital status: Number of children: 4 Current occupational status: unemployed Agree to transfusion: Yes Physical Exam Const: GENERAL APPEARANCE: cooperative and comfortable ORIENTATION/CONSCIOUSNESS: Yes awake, Yes oriented to person, Yes oriented to place and Yes oriented to time HENMT: COMMON NORMALS: normocephalic, atraumatic and hearing grossly normal bilaterally HEAD & SCALP: normocephalic and atraumatic Resp: COMMON NORMALS: normal respiratory effort, No retractions, No use of accessory muscles and clear to auscultation bilaterally AUSCULTATION: clear to auscultation bilaterally Cardio: COMMON NORMALS: regular rate, regular rhythm and No murmurs present (Cardio) RATE: regular rate RHYTHM: regular rhythm GI: COMMON NORMALS: Soft to palpation and No hepatosplenomegaly present AUSCULTATION: Yes normoactive bowel sounds PALPATION: Yes Soft to palpation, No Tenderness to palpation present (GI), No Guarding due to palpation present (GI) and Yes No hepatosplenomegaly present : BLADDER/KIDNEY EXAM: Yes CVA tenderness Back/Pelvis: GENERAL BACK: Yes CVA tenderness CVA tenderness: right Extremity: COMMON NORMALS: normal to inspection, capillary refill normal, no clubbing, cyanosis or edema, no calf tenderness and no pedal edema Neuro: SENSORIUM/ORIENTATION: Yes oriented to person, Yes oriented to place and Yes oriented to time Skin: COMMON NORMALS: no rashes or lesions noted GENERAL SKIN EXAM: no rashes or lesions noted Course Vital Signs: Vital signs: Vital Signs Temperature 98.4 F 03/20/23 06:43 Pulse Rate 75 03/20/23 07:48 Respiratory Rate 16 03/20/23 07:48 Blood Pressure 150/106 03/20/23 07:48 Pulse Oximetry 96 03/20/23 07:48 Oxygen Delivery Me thod Room Air 03/20/23 06:43 MDM - Back Pain/Injury Medical Decision Making CT for renal stone protocol negative. No signs of bowel or urinary tract pathology -no nephrolithiasis, no obstruction diverticulitis perforation, pyelonephritis or appendicitis. She does have severe hepatic steatosis. Labs reviewed. No leukocytosis she does have some mild glucose urea renal function is normal no hematuria. Suspect her discomfort is musculoskeletal in nature patient given Norflex and Decadron. Discharge home with muscle relaxer steroid taper anti-inflammatories and follow-up with primary care Medical Records I reviewed the patient's medical records. Labs I reviewed the patient's lab results. 03/20/23 07:01 03/20/23 07:01 Radiology Impressions Abdomen/Pelvis CT 03/20/23 06:53 IMPRESSION: 1. No obstructing renal calcifications or ureteral calcification. 2. Small bilateral nonobstructing renal calcifications. 3. Normal appendix. 4. Severe hepatic steatosis and hepatomegaly. 5. No GI tract obstruction. 6. Prior hysterectomy. 7. IVC filter. Laboratory Results WBC 6.9 10^3/uL (4.0-10.0) 03/20/23 07:01 RBC 4.10 10^6/uL (4.1-5.3) 03/20/23 07:01 Hgb 12.2 g/dL (11.5-15.3) 03/20/23 07:01 Hct 35.9 % (37.0-47.0) L 03/20/23 07:01 MCV 87.6 fl (81-99) 03/20/23 07:01 MCH 29.8 pg (28.0-34.0) 03/20/23 07:01 MCHC 34.0 g/dL (30.0-36.0) 03/20/23 07:01 RDW 14.1 % (12.1-15.1) 03/20/23 07:01 Plt Count 318 10^3/cmm (130-400) 03/20/23 07:01 MPV 10.1 fL (7.4-10.4) 03/20/23 07:01 Neut % (Auto) 56.7 % 03/20/23 07:01 Lymph % (Auto) 32.5 % 03/20/23 07:01 [place] % (Auto) 6.1 % 03/20/23 07:01 Eos % (Auto) 2.5 % 03/20/23 07:01 Baso % (Auto) 0.9 % 03/20/23 07:01 Neut # (Auto) 3.92 10^3/uL (1.8-7.7) 03/20/23 07:01 Lymph # (Auto) 2.2 10^3/uL (0.8-4.8) 03/20/23 07:01 [place] # (Auto) 0.4 10^3/uL (0.2-0.9) 03/20/23 07:01 Eos # (Auto) 0.2 10^3/uL (0.0-0.8) 03/20/23 07:01 Baso # (Auto) 0.1 10^3/uL (0.0-0.1) 03/20/23 07:01 Nucleated RBC % (auto) 0 % 03/20/23 07:01 Nucleated RBCs # 0.0 /100WBC 03/20/23 07:01 Sodium 127 mmol/L (136-145) L 03/20/23 07:01 Potassium 4.3 mmol/L (3.5-5.1) 03/20/23 07:01 Chloride 92 mmol/L (98-107) L 03/20/23 07:01 Carbon Dioxide 17 mmol/L (22-29) L 03/20/23 07:01 Anion Gap 22.3 (5-19) H 03/20/23 07:01 BUN 11 mg/dL (6-20) 03/20/23 07:01 Creatinine 0.3 mg/dL (0.5-0.9) L 03/20/23 07:01 GFR Calculation 245.2 mL/min (90-130) H 03/20/23 07:01 Glucose 190 mg/dL (65-115) H 03/20/23 07:01 Calculated Osmolality 268 mOsm/kg (285-295) L 03/20/23 07:01 Calcium 9.2 mg/dL (8.5-10.5) 03/20/23 07:01 Urine Color Light yellow (Yellow) 03/20/23 06:47 Urine Appearance Clear (CLEAR) 03/20/23 06:47 Urine pH 5 (5-7) 03/20/23 06:47 Ur Specific [place] 1.020 (1.005-1.030) 05/19/23 06:47 Urine Protein Neg (Negative) 03/20/23 06:47 Urine Glucose (UA) 4+ (Normal) H 03/20/23 06:47 Urine Ketones 1+ (Negative) H 03/20/23 06:47 Urine Blood Neg (Negative) 03/20/23 06:47 Urine Nitrate Negative (Negative) 03/20/23 06:47 Urine Bilirubin Neg (Negative) 03/20/23 06:47 Urine Urobilinogen Neg mg/dL (Negative) 03/20/23 06:47 Ur Leukocyte Esterase Negative (Negative) 03/20/23 06:47 Discharge Plan Discharge Patient Disposition: Home Clinical Impression: Strain of lumbar region Condition: Stable Prescriptions: New tizanidine 4 mg tablet 4 mg PO Q6H PRN (Reason: muscle spasticity) Qty: 20 0RF Rx Instructions: do not exceed 3 doses per 24 hrs hydrocodone-acetaminophen 5-325 mg tablet 1 tab PO Q6H PRN (Reason: pain) Qty: 20 0RF diclofenac sodium 75 mg tablet,delayed release (DR/EC) 75 mg PO Q12H PRN (Reason: pain) Qty: 20 0RF Discontinued ibuprofen 800 mg tablet 800 mg PO .PRN PRN (Reason: pain) naproxen sodium [Aleve] 220 mg Tablet 440 mg PO PRN No Action glimepiride 2 mg tablet 2 mg PO DAILY bupropion HCl 75 mg tablet 75 mg PO .q am Qty: 30 1RF Rx Instructions: Take one tablet by mouth every morning escitalopram oxalate 20 mg tablet 20 mg PO DAILY Qty: 30 1RF Rx Instructions: Take 1 tablet every morning trazodone 100 mg tablet 100 mg PO DAILY PRN (Reason: insomnia) Qty: 30 1RF Rx Instructions: Take 1/2 to 1 tablet daily at bedtime, if needed for sleep lamotrigine 100 mg tablet 200 mg PO DAILY Qty: 60 1RF Rx Instructions: Take two tablets daily melatonin 10 mg tablet 10 mg PO BEDTIME fenofibrate 50 mg capsule 50 mg PO DAILY Qty: 30 5RF estradiol 0.5 mg tablet See Rx Instructions .ROUTE .COMPLEX Qty: 90 2RF Dose Instruction: TAKE 1 TABLET BY MOUTH ONCE DAILY FOR HOT FLASHES AND MOOD SWINGS Rx Instructions: TAKE 1 TABLET BY MOUTH ONCE DAILY FOR HOT FLASHES AND MOOD SWINGS metformin 500 mg tablet 500 mg PO BID Qty: 180 1RF acetaminophen 325 mg capsule 325 mg PO Q4H PRN (Reason: fever or pain) Qty: 60 0RF Discharge Orders: Discharge ED (Routine); Ordered 03/20/23 Ordered By: Michael Patel Referrals: Cristina Cloud MD [Primary Care Provider] - Discharge Diet: Usual diet Discharge Activity: Increase activity as tolerated Patient Instructions: Back Pain (ED), Opioid Safety, Pain Management Activity Restrictions/Additional Instructions: You were seen for hipolito pain. The CT and urine were negative. Use medicaitons prescribed for back pain. Recheck with your primary care provider if not improving. Coding Level of Care Code ED [employer] Liaison for Padmini Castro
--- NOTE | 2023-03-20 06:53 | CT_ITS ---
WS: [id number] CT ABDOMEN AND PELVIS NONCONTRAST HISTORY: flank pain, right-sided back pain. TECHNIQUE: Imaging performed through the abdomen and pelvis. Coronal and sagittal reformats are submi tted. All CT scans at [facility] use at least one of these dose optimization techniques: auto mated exposure control; mA and/or kV adjustment per patient size (includes targeted exams where dose is matched to clinical indication); or iterative reconstruction. DLP: 761.83 mGy.cm COMPARISON: 04/06/2022 Lower thorax: Lung bases are clear. Visualized heart is normal. No hiatal hernia. Liver: Marked hepatic enlargement with steatosis. Liver measures up to 22.5 cm in length with severe hepatic steatosis. No bile duct dilatation. Gallbladder: Normal gallbladder. No pericholecystic fluid or cholelithiasis. No gallbladder wall thic kening. Pancreas: Normal size and attenuation. Normal pancreatic duct. No pancreatitis or mass. Spleen: Top normal size at 12.0 cm in length. Adrenal glands: Normal. No mass. Right kidney: Nonobstructing 3 mm calcification lower pole. No perinephric stranding. No ureteral dil atation. Left kidney: Normal size kidney. 2 nonobstructing calcifications in the renal pelvis. The largest in the upper pole measures 3.5 mm. No perinephric stranding. No ureteral obstruction. Aorta: Mild atherosclerosis abdominal aorta with no aneurysm. Normal position of an IVC filter. No free fluid, intraperitoneal air or significant lymphadenopathy. GI tract: Normal noncontrast imaging of the stomach, small bowel and colon. No obstruction or wall th ickening. Normal appendix. Abdominal wall: Small umbilical hernia contains fat only. Pelvis: Prior hysterectomy. No free fluid or adenopathy. Nondistended urinary bladder. No intralumina l calcifications. Osseous structures: Unremarkable. CT/CT kidney stone [id number] IMPRESSION: 1. No obstructing renal calcifications or ureteral calcification. 2. Small bilateral nonobstructing renal calcifications. 3. Normal appendix. 4. Severe hepatic steatosis and hepatomegaly. 5. No GI tract obstruction. 6. Prior hysterectomy. 7. IVC filter.
[2023-03-20 07:06] LABS: Add Urine Microscopic? NO; Charge for UA Resulting for Rev
[2023-03-20 07:12] LABS: Basophils # 0.1 10^3/uL (0.0-0.1); Basophils % 0.9 %; Eosinophils # 0.2 10^3/uL (0.0-0.8); Eosinophils % 2.5 %; Hematocrit 35.9 % (37.0-47.0); Hemoglobin 12.2 g/dL (11.5-15.3); Lymphocytes # 2.2 10^3/uL (0.8-4.8); Lymphocytes % 32.5 %; Mean Corpuscular Hemoglobin 29.8 pg (28.0-34.0); Mean Corpuscular Volume 87.6 fl (81-99); Mean Platelet Volume 10.1 fL (7.4-10.4); Monocytes # 0.4 10^3/uL (0.2-0.9); Monocytes % 6.1 %; Neutrophils # 3.92 10^3/uL (1.8-7.7); Neutrophils % 56.7 %; Nucleated Red Blood Cells % 0 %; Platelet Count 318 10^3/cmm (130-400); Red Cell Distribution Width 14.1 % (12.1-15.1); White Blood Count 6.9 10^3/uL (4.0-10.0)
[2023-03-20 07:17] LABS: Bilirubin Urine Neg (Negative); Blood Urine Neg (Negative); Glucose Urine UA 4+ (Normal); Ketones Urine 1+ (Negative); Leukocyte Esterase Urine Negative (Negative); Nitrate Urine Negative (Negative); Protein Urine Neg (Negative); Urine Appearance Clear (CLEAR); Urine Color Light yellow (Yellow); Urobilinogen Urine Neg (Negative); pH Urine 5 (5-7)
[2023-03-20 07:21] VITALS: RESP 16; O2SAT 96
[2023-03-20] MEDS: morphine 4 mg/mL SDV 1 mL IVP (07:21)
[2023-03-20] MEDS: ondansetron 2 mg/ML SDV 2 mL 4 MG IVP (07:22)
[2023-03-20] MEDS: sodium chloride 0.9% 1,000 ML 999 ML IV (07:22)
[2023-03-20 07:25] LABS: Blood Urea Nitrogen 11 mg/dL (6-20); Calcium 9.2 mg/dL (8.5-10.5); Carbon Dioxide 17 mmol/L (22-29); Chloride 92 mmol/L (98-107); Glomerular Filtration Rate 245.2 mL/min (90-130); Glucose 190 mg/dL (65-115); Osmolality Calculated 268 mOsm/kg (285-295); Sodium 127 mmol/L (136-145)
[2023-03-20 07:30] LABS: Anion Gap 22.3 (5-19); Potassium 4.3 mmol/L (3.5-5.1)
[2023-03-20 07:48] VITALS: BP 150/106; PULSE 75; RESP 16; O2SAT 96
[2023-03-20 08:00] VITALS: BP 154/107; PULSE 76; RESP 16; O2SAT 96
[2023-03-20] MEDS: dexamethasone 10 mg/mL INJ IVP (08:53)
[2023-03-20] MEDS: orphenadrine 30 mg/mL Inj 2 mL 60 MG IVP (08:53)
[2023-03-20 09:24] VITALS: BP 124/80; PULSE 68; RESP 16; O2SAT 95
== END 2023-03-20 09:05 | disposition home or self-care (01) ==
PROVIDERS: Emergency Provider Family Medicine; PCP Family Medicine
DX: S39.012A Strain of muscle, fascia and tendon of lower back, initial encounter (principal); Z79.84 Long term (current) use of oral hypoglycemic drugs; Z77.22 Contact with and (suspected) exposure to environmental tobacco smoke (acute) (chronic); E11.9 Type 2 diabetes mellitus without complications; X58.XXXA Exposure to other specified factors, initial encounter
CPT/HCPCS: 74176; 80048; 81003; 85025; 96361; 96374; 96375; 99285; J1100; J2270; J2360; J2405; J7030

== ENCOUNTER 2023-05-11 13:41 | Inpatient (IN) | payer BC, MEDICAID, SELFPAY ==
[2023-05-11] VITALS (14 sets, daily range): BP systolic 104–123; BP diastolic 66–89; PULSE 91–133; RESP 13–27; TEMP 36.7–37; O2SAT 94–99; BMI 30.8; BMI 32.0
[2023-05-11 14:40] LABS: Basophils # 0.1 10^3/uL (0.0-0.1); Basophils % 0.5 %; Eosinophils # 0.1 10^3/uL (0.0-0.8); Eosinophils % 0.5 %; Hematocrit 39.3 % (37.0-47.0); Hemoglobin 13.6 g/dL (11.5-15.3); Lymphocytes # 2.2 10^3/uL (0.8-4.8); Lymphocytes % 12.5 %; Mean Corpuscular HGB Conc 34.6 g/dL (30.0-36.0); Mean Corpuscular Volume 86.8 fl (81-99); Mean Platelet Volume 9.7 fL (7.4-10.4); Monocytes % 5.6 %; Neutrophils # 13.88 10^3/uL (1.8-7.7); Neutrophils % 79.2 %; Nucleated Red Blood Cells % 0 %; Platelet Count 476 10^3/cmm (130-400); Red Blood Count 4.53 10^6/uL (4.1-5.3); Red Cell Distribution Width 15.5 % (12.1-15.1); White Blood Count 17.5 10^3/uL (4.0-10.0)
[2023-05-11 14:55] LABS: INR 0.94 (0.8-1.2)
[2023-05-11 14:56] LABS: HCG, Serum Qual Negative (Negative)
[2023-05-11 15:02] LABS: Albumin Level 3.7 g/dL (3.5-5.2); Alkaline Phosphatase 81 U/L (35-105); Blood Urea Nitrogen 5 mg/dL (6-20); Calcium 9.5 mg/dL (8.5-10.5); Carbon Dioxide 17 mmol/L (22-29); Glomerular Filtration Rate 245.2 mL/min (90-130); Glucose 217 mg/dL (65-115); Lipase 81 U/L (13-60); Total Bilirubin 0.4 mg/dL (0.15-1.2); Total Protein 7.7 g/dL (6.6-8.7)
[2023-05-11 15:25] LABS: Urine Appearance Clear (CLEAR); Urine Color Yellow (Yellow); pH Urine 5 (5-7)
[2023-05-11 15:26] LABS: Add Urine Microscopic? YES; Bilirubin Urine 1+ (Negative); Blood Urine Neg (Negative); Glucose Urine UA 4+ (Normal); Ketones Urine 3+ (Negative); Leukocyte Esterase Urine Negative (Negative); Nitrate Urine Negative (Negative); Protein Urine 3+ (Negative); Urobilinogen Urine Norm (Negative)
[2023-05-11 15:27] LABS: Bacteria Urine 2+ /hpf
[2023-05-11 15:28] LABS: Add Urine Culture? No; Hyaline Casts Urine 0-4 /lpf
[2023-05-11 15:38] LABS: Anion Gap 21.8 (5-19); Aspartate Amino Transferase 8 U/L (0-32); Chloride 91 mmol/L (98-107); Potassium 3.8 mmol/L (3.5-5.1); Sodium 126 mmol/L (136-145)
[2023-05-11 15:39] LABS: Alanine Aminotransferase 13 U/L (0-33); Osmolality Calculated 266 mOsm/kg (285-295)
--- NOTE | 2023-05-11 15:39 | CTR_ITS ---
PROCEDURE INFORMATION: Exam: CT Abdomen And Pelvis With Contrast Exam date and time: 05/11/2023 4:04 PM Age: 43 years old Clinical indication: Abdominal pain; Localized; Upper; Prior surgery; Surgery date: 6+ months; Surgery type: , hyst; Additional info: Abd pain, upper gi bleed, TECHNIQUE: Imaging protocol: Computed tomography of the abdomen and pelvis with contrast. Radiation optimization: All CT scans at this facility use at least one of these dose optimization techniques: automated exposure control; mA and/or kV adjustment per patient size (includes targeted exams where dose is matched to clinical indication); or iterative reconstruction. Contrast material: OMNI 350; Contrast volume: 100 ml; Contrast route: INTRAVENOUS (IV); REPORTING DATA: Count of CT and Cardiac NM exams in prior 12 months: This patient has received [address] and 0 known cardiac nuclear medicine studies in the 12 months prior to the current study. COMPARISON: CT kidney stone [id number] 03/20/2023 7:01 AM RADIATION DOSE METRICS: Total DLP (mGy-cm): 692.16 FINDINGS: Lungs: Lung bases are clear. Liver: Liver is moderately enlarged with diffuse fatty infiltration, stable. Gallbladder and bile ducts: Normal. No calcified stones. No ductal dilation. Pancreas: Pancreas is unremarkable however there is mild peripancreatic fluid surrounding the head and body of the pancreas extending along the right anterior pararenal space developed from previous exam likely secondary to acute pancreatitis. Main pancreatic duct is not dilated. Spleen: Spleen is mildly enlarged, unchanged. Adrenal glands: Normal. No mass. Kidneys and ureters: Tiny nonobstructing left renal stone otherwise kidneys are unremarkable. Stomach and bowel: Undigested tablets at the GE junction. The Moderate degree of retained stool throughout the large bowel that may reflect some degree of constipation. Few scattered diverticula sigmoid colon. Remainder of the GI tract is unremarkable. Appendix: No evidence of acute appendicitis. Intraperitoneal space: Unremarkable. No free air. No significant fluid collection. Vasculature: IVC filter placed at the junction of the IVC and right common iliac vein, unchanged. Lymph nodes: Unremarkable. No enlarged lymph nodes. Urinary bladder: Unremarkable as visualized. Reproductive: Uterus has been removed. 2.5 cm complex right ovarian cyst, new, presumed functional in nature. Bones/joints: Unremarkable. No acute fracture. Soft tissues: Unremarkable. CT/CT abdomen pelvis w con* [id number] IMPRESSION: 1. Interval development of mild peripancreatic ascites presumed secondary to acute pancreatitis. Please correlate with appropriate laboratory parameters. 2. Hepatomegaly with diffuse fatty infiltration, stable. 3. Mild splenomegaly unchanged. 4. Moderate degree of retained stool throughout the large bowel that may reflect some degree of constipation. 5. Additional nonemergent findings as above. The COMMENTS: For patients with an IVC filter, recommend assessment for a management plan for the patient's IVC filter. If there is no established management plan, recommend referral to an interventional clinician on a nonemergent basis for evaluation.
--- NOTE | 2023-05-11 15:41 | ED_ITS ---
HPI - Abdominal Pain General: Chief Complaint: Abdominal Pain Stated Complaint: sent by dr camejo/nicloe/marielle pain/vomiting blood Time Seen by Provider: 05/11/23 15:07 History of Present Illness: Patient presents to the ER with complaints of abdominal pain that radiates into her back across both sides. Patient also states she has vomited black gritty material as well as having black and tarry stools. This been going on for about the last 3 days. Patient says her PCP sent her over here for work-up for probable upper GI bleed. Patient is tachycardic with a heart rate of 133 bpm at this time. Patient states she is never had this before and has not treated it with anything before arriving to the ER. Review of Systems 2 General: Reports: 10 or more systems reviewed and unremarkable except in HPI and below PFSH ED PFSH: Medical History Bipolar II disorder DM type 2 (diabetes mellitus, type 2) Stefani filter in place History of pulmonary embolus during History of tibial fracture Migraines Psychiatric care Surgical History History of section History of hysterectomy History of lithotripsy History of superior vena cava filter placement History of surgery on lower extremity repair of l tibia fracture, hardware in place Family History Grandmother Anesthesia complication maternal Diabetes maternal, maternal great Colon cancer paternal, age unknown Family/Other Hyperlipidemia maternal side Hypertension maternal side Thyroid condition nephew Mother Thyroid condition Sister Thyroid condition Grandfather Heart disease maternal and paternal Denies family history of Ovarian cancer Clotting disorder Breast cancer Bleeding disorder Uterine cancer Stroke Social History Smoking and tobacco status: never smoked Second hand smoke exposure: Yes Alcohol intake: current Alcohol intake frequency: holidays/special occasions only Marital status: Number of children: 4 Current occupational status: unemployed Agree to transfusion: Yes Physical Exam Const: COMMON NORMALS: no acute distress, average body habitus, patient oriented x3, no limitations, healthy appearing, alert and well nourished HENMT: COMMON NORMALS: normocephalic, atraumatic, hearing grossly normal bilaterally, external ears normal, Normal external nose present and moist oral mucous membranes HEAD & SCALP: normocephalic and atraumatic NOSE: Normal external nose present EXTERNAL EAR: Yes external ears normal Eye: COMMON NORMALS: Equal, round and reactive pupils present, EOMs intact bilaterally, conjunctivae normal and no scleral icterus CONJUNCTIVA: Yes conjunctivae normal PUPIL: Yes Equal, round and reactive pupils present Neck/C-Spine: COMMON NORMALS: full ROM, no lymphadenopathy, supple, no meningeal signs, no JVD and Thyroid normal THYROID: Thyroid normal Chest: COMMONS NORMALS: normal inspection of the chest and normal palpation of entire chest wall Resp: COMMON NORMALS: normal respiratory effort, No retractions, No use of accessory muscles and clear to auscultation bilaterally AUSCULTATION: clear to auscultation bilaterally Cardio: COMMON NORMALS: no JVD, regular rhythm, S1 normal heart sound present, S2 normal heart sound present, No gallops present (Cardio), No clicks present (Cardio), No murmurs present (Cardio) and No rub (Cardio); negative for regular rate (Tachycardic) RATE: abnormal rate (Tachycardic) RHYTHM: regular rhythm HEART SOUNDS: S1 normal heart sound present and S2 normal heart sound present GI: COMMON NORMALS: Normal to inspection, nondistended, normoactive bowel sounds present, Soft to palpation, No hepatosplenomegaly present and no masses; negative for non-tender (Diffusely tender) PALPATION: Yes Soft to palpation and Yes No hepatosplenomegaly present : COMMON NORMALS: Yes no CVA tenderness BLADDER/KIDNEY EXAM: Yes no CVA tenderness Back/Pelvis: COMMON NORMALS: no CVA tenderness Neuro: COMMON NORMALS: patient oriented x3 SENSORIUM/ORIENTATION: Yes alert MENINGEAL SIGNS: Yes no meningeal signs Course Vital Signs: Vital signs: Vital Signs Temperature 98.6 F 05/11/23 13:58 Pulse Rate 94 05/11/23 17:30 Respiratory Rate 18 05/11/23 17:30 Blood Pressure 115/75 05/11/23 19:59 Pulse Oximetry 98 05/11/23 17:30 Oxygen Delivery Me thod Room Air 05/11/23 17:30 MDM - Abdominal Pain Medical Decision Making Patient presents to the ER with complaints of abdominal pain x3 days and also vomiting dark gritty emesis and having black tarry stools. Lab work was obtained which showed patient a white count is elevated 17.5, low sodium of 126, and a mildly elevated lipase approximately 81. Abdomen abdominal pelvis CT with contrast was obtained which showed interval development of mild peripancreatic ascites presumed secondary to acute pancreatitis. Dr. Kohler was consulted she wanted us to recheck the patient's lipids as a been extremely high about 3500 in the past. Patient will be admitted but if the lipids are 500 or less she will be placed in MedSurg if they are greater than she will be placed in the ICU. Differential Diagnosis Likely abdominal pain; Unlikely acute appendicitis, calculus of kidney, constipation, diverticulitis, endometriosis, gastroenteritis, pancreatitis or small bowel obstruction Medical Records I reviewed the patient's medical records. Lab Data I reviewed the patient's lab results. 05/11/23 14:20 05/11/23 14:20 Labs/Radiology: Radiology Impressions Abdomen/Pelvis CT 05/11/23 15:39 IMPRESSION: 1. Interval development of mild peripancreatic ascites presumed secondary to acute pancreatitis. Please correlate with appropriate laboratory parameters. 2. Hepatomegaly with diffuse fatty infiltration, stable. 3. Mild splenomegaly unchanged. 4. Moderate degree of retained stool throughout the large bowel that may reflect some degree of constipation. 5. Additional nonemergent findings as above. The COMMENTS: For patients with an IVC filter, recommend assessment for a management plan for the patient's IVC filter. If there is no established management plan, recommend referral to an interventional clinician on a nonemergent basis for evaluation. Laboratory Results WBC 17.5 10^3/uL (4.0-10.0) H 05/11/23 14:20 RBC 4.53 10^6/uL (4.1-5.3) 05/11/23 14:20 Hgb 13.6 g/dL (11.5-15.3) 05/11/23 14:20 Hct 39.3 % (37.0-47.0) 05/11/23 14:20 MCV 86.8 fl (81-99) 05/11/23 14:20 MCH 30.0 pg (28.0-34.0) 05/11/23 14:20 MCHC 34.6 g/dL (30.0-36.0) 05/11/23 14:20 RDW 15.5 % (12.1-15.1) H 05/11/23 14:20 Plt Count 476 10^3/cmm (130-400) H 05/11/23 14:20 MPV 9.7 fL (7.4-10.4) 05/11/23 14:20 Neut % (Auto) 79.2 % 05/11/23 14:20 Lymph % (Auto) 12.5 % 05/11/23 14:20 [place] % (Auto) 5.6 % 05/11/23 14:20 Eos % (Auto) 0.5 % 05/11/23 14:20 Baso % (Auto) 0.5 % 05/11/23 14:20 Neut # (Auto) 13.88 10^3/uL (1.8-7.7) H 05/11/23 14:20 Lymph # (Auto) 2.2 10^3/uL (0.8-4.8) 05/11/23 14:20 [place] # (Auto) 1.0 10^3/uL (0.2-0.9) H 05/11/23 14:20 Eos # (Auto) 0.1 10^3/uL (0.0-0.8) 05/11/23 14:20 Baso # (Auto) 0.1 10^3/uL (0.0-0.1) 05/11/23 14:20 Nucleated RBC % (auto) 0 % 05/11/23 14:20 Nucleated RBCs # 0.0 /100WBC 05/11/23 14:20 PT 12.90 SECONDS (12.1-14.9) 05/11/23 14:20 INR 0.94 (0.8-1.2) 05/11/23 14:20 APTT 32.0 SECONDS (23.9-36.7) 05/11/23 14:20 Sodium 126 mmol/L (136-145) L 05/11/23 14:20 Potassium 3.8 mmol/L (3.5-5.1) 05/11/23 14:20 Chloride 91 mmol/L (98-107) L 05/11/23 14:20 Carbon Dioxide 17 mmol/L (22-29) L 05/11/23 14:20 Anion Gap 21.8 (5-19) H 05/11/23 14:20 BUN 5 mg/dL (6-20) L 05/11/23 14:20 Creatinine 0.3 mg/dL (0.5-0.9) L 05/11/23 14:20 GFR Calculation 245.2 mL/min (90-130) H 05/11/23 14:20 Glucose 217 mg/dL (65-115) H 05/11/23 14:20 Calculated Osmolality 266 mOsm/kg (285-295) L 05/11/23 14:20 Calcium 9.5 mg/dL (8.5-10.5) 05/11/23 14:20 Total Bilirubin 0.4 mg/dL (0.15-1.2) 05/11/23 14:20 AST 8 U/L (0-32) 05/11/23 14:20 ALT 13 U/L (0-33) 05/11/23 14:20 Alkaline Phosphatase 81 U/L (35-105) 05/11/23 14:20 Total Protein 7.7 g/dL (6.6-8.7) 05/11/23 14:20 Albumin 3.7 g/dL (3.5-5.2) 05/11/23 14:20 Globulin 4.0 g/dL (1.3-4.6) 05/11/23 14:20 Triglycerides 2363 mg/dL (0-150) H 05/11/23 14:20 Cholesterol 565 mg/dL (0-200) H 05/11/23 14:20 LDL Cholesterol, Calc Not Reportable 05/11/23 14:20 HDL Cholesterol 17 mg/dL (60-100) L 05/11/23 14:20 LDL/HDL Ratio Not Reportable 05/11/23 14:20 Cholesterol/HDL Ratio 33.24 mg/dL (0.0-4.40) H 05/11/23 14:20 Lipase 81 U/L (13-60) H 05/11/23 14:20 HCG, Qual Negative (Negative) 05/11/23 14:20 Urine Color Yellow (Yellow) 05/11/23 15:02 Urine Appearance Clear (CLEAR) 05/11/23 15:02 Urine pH 5 (5-7) 05/11/23 15:02 Ur Specific [place] 1.020 (1.005-1.030) 05/11/23 15:02 Urine Protein 3+ (Negative) H 05/11/23 15:02 Urine Glucose (UA) 4+ (Normal) H 05/11/23 15:02 Urine Ketones 3+ (Negative) H 05/11/23 15:02 Urine Blood Neg (Negative) 05/11/23 15:02 Urine Nitrate Negative (Negative) 05/11/23 15:02 Urine Bilirubin 1+ (Negative) H 05/11/23 15:02 Urine Urobilinogen Norm mg/dL (Negative) 05/11/23 15:02 Ur Leukocyte Esterase Negative (Negative) 05/11/23 15:02 Urine RBC None /hpf (0-2) 05/11/23 15:02 Urine WBC 5-10 /hpf (0-5) H 05/11/23 15:02 Ur Squamous Epith Cells 10-15 /hpf (0-5) H 05/11/23 15:02 Amorphous Sediment Not Reportable 05/11/23 15:02 Urine Bacteria 2+ /hpf (NONE) H 05/11/23 15:02 Hyaline Casts 0-4 /lpf H 05/11/23 15:02 Discharge Plan Discharge Patient Disposition: Admitted As Inpatient Clinical Impression: Pancreatitis, Abdominal pain, Hyperlipidemia, Hypertriglyceridemia Condition: Stable Coding Level of Care Code ED Vice President Of Instruction for Padmini Castro
[2023-05-11] MEDS: famotidine 20 mg Tablet 40 MG PO (15:53)
[2023-05-11] MEDS: sucralfate 1 gm Tablet PO (15:53)
[2023-05-11] MEDS: pantoprazole 40 mg SDV IVP ×2 (15:53→23:06)
[2023-05-11] MEDS: sodium chloride 0.9% 1,000 ML 999 ML IV (15:54)
[2023-05-11] MEDS: ondansetron 2 mg/ML SDV 2 mL 4 MG IVP (16:19)
[2023-05-11 21:43] LABS: HDL Cholesterol 10 mg/dL (60-100)
[2023-05-11 21:44] LABS: Cholesterol 1174 mg/dL (0-200)
[2023-05-11] MEDS: morphine 4 mg/mL SDV 1 mL 2 MG IVP (21:54)
--- NOTE | 2023-05-11 22:07 | PM.HP ---
Providers/Chief Complaint Admitting Physician: Dorota Kohler MD Primary Care Provider: Cristina Camejo MD Chief Complaint: sent by dr camejo/bckpain/abd pain/vomiting blood History of Present Illness Guerrero Pugh is a 43 year old female with a past medical history of type 2 diabetes mellitus, hypertriglyceridemia for which she she was previously on fenofibrate, has not taken in several months currently, history of PE after childbirth several years ago (attributed to oral contraceptives at that time), presented to the emergency room with 3 days of back and abdominal pain. Symptoms were started 3 days ago initially as back pain, patient thought this was likely related to her moving some furniture around, however over the next the pain progressed in a bandlike fashion and involved her abdomen as well. To yesterday and today she has had several episodes of vomiting which is green to dark black-colored. She was concerned that these were coffee-ground emesis and presented to the emergency room. Her last bowel movement was yesterday. No melena. Passing flatus however thinks this is less than usual today. In the ER she was found to have CT evidence of acute pancreatitis without signs of necrosis currently. Also noted was colonic retention of stool. No recent fever chills. No history of alcohol consumption. Triglyceride level was later checked at my request and returned at greater than 5400. Review of systems negative for cough chest pain dyspnea palpitations syncope or dysuria. Review of Systems General: Reports: 10 or more systems reviewed and unremarkable except in HPI and below Const: Denies: fever(s), chills or body aches Eyes: Denies: change in vision, blurry vision or photophobia ENMT: Reports: hoarseness; Denies: throat pain, enlarged tonsils, odynophagia or nasal congestion Card: Denies: chest pain, palpitations, irregular heart rhythm, edema, swelling of feet/ankles, lightheadedness, pre-syncope, dyspnea on exertion or orthopnea Resp: Denies: dyspnea, productive cough, non-productive cough, wheezing, stridor, pain on inspiration, change in phlegm color, hemoptysis or chest congestion GI: Denies: abdominal pain, nausea, vomiting, hematemesis, coffee ground emesis, dysphagia, heartburn, diarrhea, constipation, GI cramping, change in stool character, hematochezia or melena : Denies: flank pain, difficulty voiding, dysuria, urinary frequency, urinary urgency, urinary hesitancy or hematuria Musc: Denies: neck pain, back pain, extremity pain, joint swelling, joint warmth or deformity Neuro: Denies: headache(s), numbness in extremities, weakness in extremities, sensory changes, difficulty walking, frequent falls, dizziness, vertigo, behavioral changes, Slurred speech present or seizure-like activity Psych: Denies: anxiety, depression, suicidal ideation or homicidal ideation Endo: Denies: polyuria, polydipsia, tired all the time, cold intolerance or hot flashes Edd/Lymph: Denies: easy bruising or easy bleeding Medications/Allergies Home Medications Medication Instructions Recorded Confirmed Last Taken Type acetaminophen 325 mg capsule 325 mg PO Q4H PRN fever or pain 04/03/22 05/11/23 Unknown Rx #60 caps escitalopram oxalate 20 mg tablet 20 mg PO DAILY #30 tabs 01/05/23 05/11/23 05/11/23 Rx lamotrigine 100 mg tablet 200 mg PO DAILY #60 tabs 01/05/23 05/11/23 05/11/23 Rx melatonin 10 mg tablet 10 mg PO BEDTIME 01/30/23 05/11/23 05/10/23 History cyclobenzaprine 10 mg tablet 10 mg PO TID PRN muscle spasm #20 05/10/23 05/11/23 Unknown Rx tabs methylprednisolone 4 mg tablets in See Rx Instructions PO PER PKG DIR 05/10/23 05/11/23 05/11/23 Rx a dose pack (Medrol ([place])) #21 ea bupropion HCl 75 mg tablet 75 mg PO QAM 05/11/23 05/11/23 05/11/23 History estradiol 0.5 mg tablet 0.5 mg PO DAILY 05/11/23 05/11/23 05/11/23 History glimepiride 2 mg tablet 2 mg PO DAILY 05/11/23 05/11/23 05/11/23 History ibuprofen 200 mg capsule 800 mg PO Q6H PRN Pain 05/11/23 05/11/23 05/10/23 History metformin 500 mg tablet 500 mg PO BID 05/11/23 05/11/23 05/11/23 History trazodone 100 mg tablet 100 mg PO QPM PRN insomnia 05/11/23 05/11/23 05/10/23 History Allergies Allergy/AdvReac Type Severity Reaction Status Date / Time No Known Allergies Allergy Verified 05/10/23 14:42 PFSH Acute PFSH: Medical History Bipolar II disorder DM type 2 (diabetes mellitus, type 2) Cisco filter in place History of pulmonary embolus during History of tibial fracture Migraines Psychiatric care Surgical History History of section History of hysterectomy History of lithotripsy History of superior vena cava filter placement History of surgery on lower extremity repair of l tibia fracture, hardware in place Family History Grandmother Anesthesia complication maternal Diabetes maternal, maternal great Colon cancer paternal, age unknown Family/Other Hyperlipidemia maternal side Hypertension maternal side Thyroid condition nephew Mother Thyroid condition Sister Thyroid condition Grandfather Heart disease maternal and paternal Denies family history of Ovarian cancer Clotting disorder Breast cancer Bleeding disorder Uterine cancer Stroke Social History Smoking and tobacco status: never smoked Second hand smoke exposure: Yes Alcohol intake: current Alcohol intake frequency: holidays/special occasions only Marital status: Number of children: 4 Current occupational status: unemployed Agree to transfusion: Yes Vitals/I&O/Wt Last Vital Signs Temp 98.6 F 05/11/23 13:58 Pulse 120 H 05/11/23 20:52 Resp 21 H 05/11/23 20:52 BP 122/82 05/11/23 20:52 Pulse Ox 95 05/11/23 20:52 O2 Del Method Room Air 05/11/23 17:30 Weight last 48 hrs Weight 73.936 kg Physical Exam Narrative: General: No acute distress, mild pain AO x3 HEENT: PERRLA, pupils bilaterally equal and reactive, pallors not present Chest: Normal vesicular breath sounds, no added sounds, equal good air entry bilaterally CVS: S1-S2 regular, no murmurs, no tachycardia, no gallops, no rubs Abdomen: Tender to palpation epigastric and left upper quadrant, bowel sounds present Neuro: No focal deficits grossly, no facial deformity, AO x3 Data 05/11/23 14:20 05/11/23 14:20 Other Labs: Radiology Impressions Abdomen/Pelvis CT 05/11/23 15:39 IMPRESSION: 1. Interval development of mild peripancreatic ascites presumed secondary to acute pancreatitis. Please correlate with appropriate laboratory parameters. 2. Hepatomegaly with diffuse fatty infiltration, stable. 3. Mild splenomegaly unchanged. 4. Moderate degree of retained stool throughout the large bowel that may reflect some degree of constipation. 5. Additional nonemergent findings as above. The COMMENTS: For patients with an IVC filter, recommend assessment for a management plan for the patient's IVC filter. If there is no established management plan, recommend referral to an interventional clinician on a nonemergent basis for evaluation. Laboratory Results WBC 17.5 10^3/uL (4.0-10.0) H 05/11/23 14:20 RBC 4.53 10^6/uL (4.1-5.3) 05/11/23 14:20 Hgb 13.6 g/dL (11.5-15.3) 05/11/23 14:20 Hct 39.3 % (37.0-47.0) 05/11/23 14:20 MCV 86.8 fl (81-99) 05/11/23 14:20 MCH 30.0 pg (28.0-34.0) 05/11/23 14:20 MCHC 34.6 g/dL (30.0-36.0) 05/11/23 14:20 RDW 15.5 % (12.1-15.1) H 05/11/23 14:20 Plt Count 476 10^3/cmm (130-400) H 05/11/23 14:20 MPV 9.7 fL (7.4-10.4) 05/11/23 14:20 Neut % (Auto) 79.2 % 05/11/23 14:20 Lymph % (Auto) 12.5 % 05/11/23 14:20 [place] % (Auto) 5.6 % 05/11/23 14:20 Eos % (Auto) 0.5 % 05/11/23 14:20 Baso % (Auto) 0.5 % 05/11/23 14:20 Neut # (Auto) 13.88 10^3/uL (1.8-7.7) H 05/11/23 14:20 Lymph # (Auto) 2.2 10^3/uL (0.8-4.8) 05/11/23 14:20 [place] # (Auto) 1.0 10^3/uL (0.2-0.9) H 05/11/23 14:20 Eos # (Auto) 0.1 10^3/uL (0.0-0.8) 05/11/23 14:20 Baso # (Auto) 0.1 10^3/uL (0.0-0.1) 05/11/23 14:20 Nucleated RBC % (auto) 0 % 05/11/23 14:20 Nucleated RBCs # 0.0 /100WBC 05/11/23 14:20 PT 12.90 SECONDS (12.1-14.9) 05/11/23 14:20 INR 0.94 (0.8-1.2) 05/11/23 14:20 APTT 32.0 SECONDS (23.9-36.7) 05/11/23 14:20 Sodium 126 mmol/L (136-145) L 05/11/23 14:20 Potassium 3.8 mmol/L (3.5-5.1) 05/11/23 14:20 Chloride 91 mmol/L (98-107) L 05/11/23 14:20 Carbon Dioxide 17 mmol/L (22-29) L 05/11/23 14:20 Anion Gap 21.8 (5-19) H 05/11/23 14:20 BUN 5 mg/dL (6-20) L 05/11/23 14:20 Creatinine 0.3 mg/dL (0.5-0.9) L 05/11/23 14:20 GFR Calculation 245.2 mL/min (90-130) H 05/11/23 14:20 Glucose 217 mg/dL (65-115) H 05/11/23 14:20 Calculated Osmolality 266 mOsm/kg (285-295) L 05/11/23 14:20 Calcium 9.5 mg/dL (8.5-10.5) 05/11/23 14:20 Total Bilirubin 0.4 mg/dL (0.15-1.2) 05/11/23 14:20 AST 8 U/L (0-32) 05/11/23 14:20 ALT 13 U/L (0-33) 05/11/23 14:20 Alkaline Phosphatase 81 U/L (35-105) 05/11/23 14:20 Total Protein 7.7 g/dL (6.6-8.7) 05/11/23 14:20 Albumin 3.7 g/dL (3.5-5.2) 05/11/23 14:20 Globulin 4.0 g/dL (1.3-4.6) 05/11/23 14:20 Triglycerides > 5409 mg/dL (0-150) H 05/11/23 14:20 Triglycerides Cancelled 05/11/23 14:20 Cholesterol 1174 mg/dL (0-200) H 05/11/23 14:20 Cholesterol Cancelled 05/11/23 14:20 LDL Cholesterol Direct Cancelled 05/11/23 14:20 LDL Cholesterol, Calc Cancelled 05/11/23 14:20 LDL Cholesterol, Calc Delivery Truck Driver Heavy 05/11/23 14:20 HDL Cholesterol 10 mg/dL (60-100) L 05/11/23 14:20 HDL Cholesterol Cancelled 05/11/23 14:20 LDL/HDL Ratio 4.50 RATIO (0.00-3.22) H 05/11/23 14:20 LDL/HDL Ratio Cancelled 05/11/23 14:20 Cholesterol/HDL Ratio 117.40 mg/dL (0.0-4.40) H 05/11/23 14:20 Cholesterol/HDL Ratio Cancelled 05/11/23 14:20 Lipase 81 U/L (13-60) H 05/11/23 14:20 HCG, Qual Negative (Negative) 05/11/23 14:20 Urine Color Yellow (Yellow) 05/11/23 15:02 Urine Appearance Clear (CLEAR) 05/11/23 15:02 Urine pH 5 (5-7) 05/11/23 15:02 Ur Specific [place] 1.020 (1.005-1.030) 05/11/23 15:02 Urine Protein 3+ (Negative) H 05/11/23 15:02 Urine Glucose (UA) 4+ (Normal) H 05/11/23 15:02 Urine Ketones 3+ (Negative) H 05/11/23 15:02 Urine Blood Neg (Negative) 05/11/23 15:02 Urine Nitrate Negative (Negative) 05/11/23 15:02 Urine Bilirubin 1+ (Negative) H 05/11/23 15:02 Urine Urobilinogen Norm mg/dL (Negative) 05/11/23 15:02 Ur Leukocyte Esterase Negative (Negative) 05/11/23 15:02 Urine RBC None /hpf (0-2) 05/11/23 15:02 Urine WBC 5-10 /hpf (0-5) H 05/11/23 15:02 Ur Squamous Epith Cells 10-15 /hpf (0-5) H 05/11/23 15:02 Amorphous Sediment Not Reportable 05/11/23 15:02 Urine Bacteria 2+ /hpf (NONE) H 05/11/23 15:02 Hyaline Casts 0-4 /lpf H 05/11/23 15:02 A&P Assessment and plan (1) Pancreatitis: 43-year-old lady presenting with 3 days of abdominal and back pain, intractable nausea and vomiting, unable to tolerate any p.o. intake, with signs of dehydration. CT abdomen and pelvis with evidence of acute pancreatitis. Normal gallbladder and biliary system. No history of alcohol consumption. Triglyceride level greater than 5400 Patient has a history of hypertriglyceridemia, previously used to be on fenofibrate, she has not taken the medication in many months, stated that she is between PCPs Suspect hypertriglyceridemia to be the cause of her current episode of acute pancreatitis. Admit to ICU Start insulin drip at 0.1 unit/kg/hr and monitor triglyceride level every 12 hours D5 normal saline at 150 cc an hour Last blood glucose at 217, will monitor with hourly fingersticks while on insulin drip. No signs of DKA or HHS. Once triglyceride level less than 500 patient will be started on fenofibrate Monitor for any signs of developing necrotizing pancreatitis As needed morphine and Toradol for pain management N.p.o. Prn zofran for nausea and vomiting Hb stable, less likely hematemesis, will monitor closely, started protonix 40mg IV q12h Qualifiers: Acute pancreatitis complication: unspecified Chronicity: acute Pancreatitis type: unspecified pancreatitis type Qualified Code(s): K85.90 - Acute pancreatitis without necrosis or infection, unspecified (2) Hypertriglyceridemia: known history of this Off fenofibrate for many months (3) Hyponatremia: likely related to dehydration from pancreatitis and GI losses D5 NS @ 150 cc/hr (4) Dehydration: Attestations Medical Necessity Statement*: > 2 midnight admission anticipated for acute pancreatitis, insulin drip, IV resuscitation, pain management Coding Level of Care Code Acute Code for [facility] Diagnoses Pancreatitis K85.90 Acute pancreatitis complication: unspecified Chronicity: acute Pancreatitis type: unspecified pancreatitis type Hypertriglyceridemia E78.1 Hyponatremia E87.1 Dehydration E86.0
--- NOTE | 2023-05-11 22:35 | PC.NURSE ---
Admission Note: Pt arrived to ICU @ approximately 2215. Continuous cardiac monitoring initiated in ICU. Pt reporting 0/10 pain. Pt reported skin issue on R. foot, pt states that her dog scratched her- inspected R. foot, wound appears to be healing and is closed.
--- NOTE | 2023-05-11 22:40 | PC.NURSE ---
Physician Communication: Dr. Kohler called unit. New order to run insulin drip non-titratable @7units/hr.
[2023-05-11] MEDS: insulin regular-human 250 UNIT in sodium chloride 0.9% 250 ML 7 UNIT IV (22:59)
[2023-05-11 23:00] LABS: Glucose Point of Care 235 mg/dL (70-110)
[2023-05-11] MEDS: dextrose 5%-sod chloride 0.9% 1,000 ML 150 ML IV (23:04)
[2023-05-11] MEDS: ketorolac 30 mg/mL INJ 15 MG IVP (23:06)
[2023-05-12] VITALS (28 sets, daily range): BP systolic 91–132; BP diastolic 53–84; PULSE 88–118; RESP 14–26; TEMP 36.8–37.1; O2SAT 93–97
[2023-05-12 01:21] LABS: Glucose Point of Care 181 mg/dL (70-110)
[2023-05-12 01:21] LABS: Glucose Point of Care 212 mg/dL (70-110)
[2023-05-12 02:09] LABS: Glucose Point of Care 148 mg/dL (70-110)
[2023-05-12 03:06] LABS: Glucose Point of Care 147 mg/dL (70-110)
[2023-05-12 04:32] LABS: Glucose Point of Care 154 mg/dL (70-110)
[2023-05-12] MEDS: ondansetron 2 mg/ML SDV 2 mL 4 MG IVP (04:38)
[2023-05-12] MEDS: morphine 4 mg/mL SDV 1 mL 2 MG IVP (04:38)
[2023-05-12 04:46] LABS: Basophils # 0.1 10^3/uL (0.0-0.1); Basophils % 0.5 %; Eosinophils # 0.2 10^3/uL (0.0-0.8); Eosinophils % 1.5 %; Hematocrit 31.4 % (37.0-47.0); Hemoglobin 10.2 g/dL (11.5-15.3); Lymphocytes # 2.4 10^3/uL (0.8-4.8); Lymphocytes % 17.7 %; Mean Corpuscular HGB Conc 32.5 g/dL (30.0-36.0); Mean Corpuscular Hemoglobin 27.6 pg (28.0-34.0); Mean Corpuscular Volume 84.9 fl (81-99); Mean Platelet Volume 9.7 fL (7.4-10.4); Monocytes # 0.8 10^3/uL (0.2-0.9); Monocytes % 5.5 %; Neutrophils # 9.93 10^3/uL (1.8-7.7); Neutrophils % 73.3 %; Nucleated Red Blood Cells % 0 %; Platelet Count 355 10^3/cmm (130-400); Red Cell Distribution Width 15.2 % (12.1-15.1); White Blood Count 13.6 10^3/uL (4.0-10.0)
[2023-05-12 05:11] LABS: Glucose Point of Care 146 mg/dL (70-110)
[2023-05-12 05:32] LABS: Triglycerides 2665 mg/dL (0-150)
[2023-05-12 05:34] LABS: Alanine Aminotransferase 9 U/L (0-33); Albumin Level 3.3 g/dL (3.5-5.2); Alkaline Phosphatase 69 U/L (35-105); Aspartate Amino Transferase 9 U/L (0-32); Blood Urea Nitrogen 5 mg/dL (6-20); Calcium 8.4 mg/dL (8.5-10.5); Carbon Dioxide 20 mmol/L (22-29); Chloride 97 mmol/L (98-107); Globulin 3.6 g/dL (1.3-4.6); Glomerular Filtration Rate 245.2 mL/min (90-130); Glucose 124 mg/dL (65-115); Lipase 48 U/L (13-60); Osmolality Calculated 265 mOsm/kg (285-295); Sodium 128 mmol/L (136-145); Total Bilirubin 0.3 mg/dL (0.15-1.2); Total Protein 6.9 g/dL (6.6-8.7)
[2023-05-12 05:35] LABS: Anion Gap 14.4 (5-19); Potassium 3.4 mmol/L (3.5-5.1)
[2023-05-12 05:53] LABS: LDL Cholesterol Direct 53 mg/dL (0-100)
[2023-05-12] MEDS: dextrose 5%-sod chloride 0.9% 1,000 ML 150 ML IV (05:56)
[2023-05-12] MEDS: ketorolac 30 mg/mL INJ 15 MG IVP ×4 (05:58→22:57)
[2023-05-12 06:05] LABS: Glucose Point of Care 163 mg/dL (70-110)
[2023-05-12 07:01] LABS: Glucose Point of Care 137 mg/dL (70-110)
[2023-05-12] MEDS: escitalopram 10 mg Tablet 20 MG PO (08:09)
[2023-05-12] MEDS: lamoTRIgine 100 mg Tablet 200 MG PO (08:09)
[2023-05-12 08:41] LABS: Glucose Point of Care 116 mg/dL (70-110)
[2023-05-12 09:08] LABS: Amylase 31 U/L (28-100)
[2023-05-12] MEDS: dextrose 5%-ns + KCl 40 40 MEQ/1,000 ML BAG 125 MEQ IV ×2 (09:09→16:55)
[2023-05-12 09:24] LABS: Glucose Point of Care 110 mg/dL (70-110)
[2023-05-12] MEDS: acetaminophen 325 mg Tablet 650 MG PO ×2 (09:57→16:53)
[2023-05-12] MEDS: pantoprazole 40 mg SDV IVP ×2 (09:58→21:01)
[2023-05-12 10:22] LABS: Glucose Point of Care 176 mg/dL (70-110)
--- NOTE | 2023-05-12 11:18 | PM.PN ---
Subjective Subjective: Potassium added to IV fluids Patient is not endorsing active pain We will allow clear liquid diet if she is able to tolerate Reviewed insulin rate, potassium, addition of potassium to IV fluids ICU nurse updated Vitals/I&O/Wt Last Vital Signs Temp 98.2 F 05/12/23 09:00 Pulse 106 H 05/12/23 10:00 Resp 21 H 05/12/23 10:00 BP 132/72 05/12/23 10:00 Pulse Ox 93 05/12/23 10:00 O2 Del Method Room Air 05/12/23 09:00 05/11/23 05/12/23 05/12/23 22:59 06:59 14:59 Intake Total 1000 / 1000 925 / 1925 795 / 795 Output Total 200 / 200 Balance 1000 / 1000 925 / 1925 595 / 595 Weight last 48 hrs Weight 74.344 kg Weight 73.936 kg Physical Exam Narrative: Euvolemic No abdominal pain Mild tenderness midepigastric region GCS 15 nonfocal neuro exam Currently on room air S1, S2 Pleasant and cooperative Data 05/12/23 03:57 05/12/23 03:57 A&P Assessment and plan (1) Dehydration: (2) Hyponatremia: (3) Pancreatitis: Qualifiers: Acute pancreatitis complication: unspecified Chronicity: acute Pancreatitis type: unspecified pancreatitis type Qualified Code(s): K85.90 - Acute pancreatitis without necrosis or infection, unspecified (4) Abdominal pain: Qualifiers: Abdominal location: upper abdomen, unspecified Qualified Code(s): R10.10 - Upper abdominal pain, unspecified (5) Hypertriglyceridemia: (6) GI bleed due to NSAIDs: (7) Bipolar II disorder: (8) DM type 2 (diabetes mellitus, type 2): Plan Hypertriglyceridemia induced pancreatitis Insulin rate 0.1 unit/kg Decrease the rate if BG becomes hypoglycemia Add D5 normal saline with potassium 40 mEq at 125 mill per hour Glucose check every hour Triglyceride check every 12 hours We will recheck BMP at 4 PM Replenish hypokalemia I would allow her to eat if she is able to tolerate without any worsening of nausea vomiting or pain Patient is type II diabetic does not take insulin, check A1c level, she is on metformin and glipizide at home Bipolar disorder Continue mood stabilizers NSAID use upper GI bleed? No recurrence, monitor for now continue Protonix Full code Clear liquid diet Add DVT prophylaxis with heparin Attestations Medical Necessity Statement*: Continue ICU management Diagnoses Dehydration E86.0 Hyponatremia E87.1 Pancreatitis K85.90 Acute pancreatitis complication: unspecified Chronicity: acute Pancreatitis type: unspecified pancreatitis type Abdominal pain R10.10 Abdominal location: upper abdomen, unspecified Hypertriglyceridemia E78.1 GI bleed due to NSAIDs K92.2; T39.395A Bipolar II disorder F31.81 DM type 2 (diabetes mellitus, type 2) E11.9
[2023-05-12 11:26] LABS: Glucose Point of Care 179 mg/dL (70-110)
[2023-05-12 12:01] LABS: Estmated Average Glucose 177; Hemoglobin A1C 7.8 % (4.0-6.0)
[2023-05-12 12:06] LABS: Glucose Point of Care 144 mg/dL (70-110)
[2023-05-12 14:12] LABS: Glucose Point of Care 146 mg/dL (70-110)
[2023-05-12 15:12] LABS: Glucose Point of Care 105 mg/dL (70-110)
[2023-05-12 16:07] LABS: Basophils # 0.1 10^3/uL (0.0-0.1); Basophils % 0.6 %; Eosinophils # 0.2 10^3/uL (0.0-0.8); Eosinophils % 2.3 %; Hematocrit 27.6 % (37.0-47.0); Hemoglobin 8.9 g/dL (11.5-15.3); Lymphocytes # 1.3 10^3/uL (0.8-4.8); Lymphocytes % 15.2 %; Mean Corpuscular HGB Conc 32.2 g/dL (30.0-36.0); Mean Corpuscular Volume 86.8 fl (81-99); Mean Platelet Volume 9.6 fL (7.4-10.4); Monocytes # 0.5 10^3/uL (0.2-0.9); Monocytes % 6.3 %; Neutrophils # 6.42 10^3/uL (1.8-7.7); Neutrophils % 74.6 %; Nucleated Red Blood Cells % 0 %; Platelet Count 255 10^3/cmm (130-400); Red Blood Count 3.18 10^6/uL (4.1-5.3); Red Cell Distribution Width 15.6 % (12.1-15.1); White Blood Count 8.6 10^3/uL (4.0-10.0)
[2023-05-12 16:10] LABS: Glucose Point of Care 84 mg/dL (70-110)
--- NOTE | 2023-05-12 16:31 | PC.NURSE ---
SHift SUmmary: Uneventful shift. Patient rested in bed throughout the day, but up to the bathroom multiple times. Started on a clear liquid diet and has not reported pain with it. At the time of this note, patient is still on an insulin drip, triglyceride labs pending.
[2023-05-12 16:46] LABS: Alanine Aminotransferase 8 U/L (0-33); Albumin Level 2.9 g/dL (3.5-5.2); Alkaline Phosphatase 62 U/L (35-105); Aspartate Amino Transferase 13 U/L (0-32); Blood Urea Nitrogen 5 mg/dL (6-20); Calcium 7.7 mg/dL (8.5-10.5); Carbon Dioxide 20 mmol/L (22-29); Chloride 104 mmol/L (98-107); Globulin 3.1 g/dL (1.3-4.6); Glomerular Filtration Rate 245.2 mL/min (90-130); Glucose 84 mg/dL (65-115); Osmolality Calculated 272 mOsm/kg (285-295); Sodium 133 mmol/L (136-145); Total Bilirubin 0.2 mg/dL (0.15-1.2)
[2023-05-12 16:48] LABS: Anion Gap 12.5 (5-19); Potassium 3.5 mmol/L (3.5-5.1)
[2023-05-12 16:53] LABS: Triglycerides 1678 mg/dL (0-150)
[2023-05-12 17:04] LABS: Glucose Point of Care 105 mg/dL (70-110)
[2023-05-12 17:08] LABS: LDL Cholesterol Direct 63 mg/dL (0-100)
[2023-05-12 18:11] LABS: Glucose Point of Care 133 mg/dL (70-110)
[2023-05-12] MEDS: heparin 5,000 unit/mL INJ 1 mL 5000 UNIT SUBCUT (18:15)
[2023-05-12 19:03] LABS: Glucose Point of Care 175 mg/dL (70-110)
[2023-05-12 20:14] LABS: Glucose Point of Care 176 mg/dL (70-110)
[2023-05-12] MEDS: trazodone 100 mg Tablet PO (21:00)
[2023-05-12 21:10] LABS: Glucose Point of Care 153 mg/dL (70-110)
[2023-05-12 22:16] LABS: Glucose Point of Care 134 mg/dL (70-110)
[2023-05-12 23:04] LABS: Glucose Point of Care 109 mg/dL (70-110)
[2023-05-13] VITALS (26 sets, daily range): BP systolic 95–130; BP diastolic 50–84; PULSE 92–117; RESP 15–28; TEMP 36.5–37; O2SAT 92–99
[2023-05-13] MEDS: morphine 4 mg/mL SDV 1 mL 2 MG IVP ×2 (00:22→20:41)
[2023-05-13 00:31] LABS: Glucose Point of Care 124 mg/dL (70-110)
[2023-05-13] MEDS: dextrose 5%-ns + KCl 40 40 MEQ/1,000 ML BAG 125 MEQ IV ×3 (01:10→16:17)
[2023-05-13 01:15] LABS: Glucose Point of Care 154 mg/dL (70-110)
[2023-05-13 02:05] LABS: Glucose Point of Care 144 mg/dL (70-110)
[2023-05-13 03:02] LABS: Glucose Point of Care 147 mg/dL (70-110)
[2023-05-13 04:08] LABS: Glucose Point of Care 128 mg/dL (70-110)
[2023-05-13 04:35] LABS: Basophils % 0.6 %; Eosinophils # 0.2 10^3/uL (0.0-0.8); Eosinophils % 2.1 %; Hemoglobin 7.9 g/dL (11.5-15.3); Lymphocytes # 1.2 10^3/uL (0.8-4.8); Lymphocytes % 16.4 %; Mean Corpuscular HGB Conc 31.6 g/dL (30.0-36.0); Mean Corpuscular Hemoglobin 27.6 pg (28.0-34.0); Mean Corpuscular Volume 87.4 fl (81-99); Mean Platelet Volume 9.8 fL (7.4-10.4); Monocytes # 0.4 10^3/uL (0.2-0.9); Monocytes % 5.9 %; Neutrophils # 5.15 10^3/uL (1.8-7.7); Neutrophils % 73.6 %; Nucleated Red Blood Cells % 0 %; Platelet Count 231 10^3/cmm (130-400); Red Blood Count 2.86 10^6/uL (4.1-5.3); Red Cell Distribution Width 15.7 % (12.1-15.1)
[2023-05-13 05:08] LABS: Glucose Point of Care 125 mg/dL (70-110)
[2023-05-13 05:21] LABS: Slide Review Slide Review Perform
[2023-05-13 05:23] LABS: Magnesium 1.9 mg/dL (1.7-2.3)
[2023-05-13 05:24] LABS: Alanine Aminotransferase 8 U/L (0-33); Albumin Level 2.7 g/dL (3.5-5.2); Alkaline Phosphatase 59 U/L (35-105); Anion Gap 12.7 (5-19); Aspartate Amino Transferase 13 U/L (0-32); Blood Urea Nitrogen 3 mg/dL (6-20); Calcium 7.4 mg/dL (8.5-10.5); Carbon Dioxide 20 mmol/L (22-29); Chloride 102 mmol/L (98-107); Glomerular Filtration Rate 245.2 mL/min (90-130); Glucose 116 mg/dL (65-115); Osmolality Calculated 270 mOsm/kg (285-295); Potassium 3.7 mmol/L (3.5-5.1); Sodium 131 mmol/L (136-145); Total Bilirubin 0.2 mg/dL (0.15-1.2); Total Protein 5.7 g/dL (6.6-8.7); Triglycerides 1530 mg/dL (0-150)
[2023-05-13 05:36] LABS: LDL Cholesterol Direct 74 mg/dL (0-100)
[2023-05-13 06:04] LABS: Glucose Point of Care 113 mg/dL (70-110)
[2023-05-13] MEDS: heparin 5,000 unit/mL INJ 1 mL 5000 UNIT SUBCUT (06:22)
[2023-05-13] MEDS: ketorolac 30 mg/mL INJ 15 MG IVP ×3 (06:22→21:45)
[2023-05-13 07:31] LABS: Glucose Point of Care 115 mg/dL (70-110)
[2023-05-13] MEDS: escitalopram 10 mg Tablet 20 MG PO (08:04)
[2023-05-13] MEDS: lamoTRIgine 100 mg Tablet 200 MG PO (08:04)
[2023-05-13] MEDS: acetaminophen 325 mg Tablet 650 MG PO ×2 (08:04→17:00)
[2023-05-13 08:26] LABS: Glucose Point of Care 126 mg/dL (70-110)
[2023-05-13] MEDS: pantoprazole 40 mg SDV IVP ×2 (09:05→20:41)
[2023-05-13 09:20] LABS: Glucose Point of Care 135 mg/dL (70-110)
[2023-05-13 10:22] LABS: Glucose Point of Care 137 mg/dL (70-110)
--- NOTE | 2023-05-13 10:38 | PC.NURSE ---
Spoke to [facility] for update on bed status. No bed at this time.
[2023-05-13 11:29] LABS: Glucose Point of Care 116 mg/dL (70-110)
--- NOTE | 2023-05-13 11:29 | PM.PN ---
Subjective Subjective: Drop in H&H noted Requested repeat triglyceride and H&H at noon Patient is stating that she wanted to go home I told her that I would not be we will discharge her on thus triglycerides are below 500 she is still requiring insulin drip Abdominal pain improved Tolerating clear liquids Vitals/I&O/Wt Last Vital Signs Temp 98.6 F 05/13/23 08:00 Pulse 97 05/13/23 10:00 Resp 18 05/13/23 10:00 BP 107/64 05/13/23 10:00 Pulse Ox 96 05/13/23 10:00 O2 Del Method Room Air 05/13/23 08:00 05/12/23 05/13/23 05/13/23 22:59 06:59 14:59 Intake Total 2435.767 / 3910.767 1008.750 / 4919.517 1150.417 / 1150.417 Output Total 250 / 600 350 / 950 250 / 250 Balance 2185.767 / 3310.767 658.750 / 3969.517 900.417 / 900.417 Weight last 48 hrs Weight 74.344 kg Weight 73.936 kg Physical Exam Narrative: Abdomen tenderness improved Awake and alert Euvolemic Complaining of headache nonfocal neuro exam Sinus tenderness GCS 15 Awake and alert Currently on room air Nonfocal neuro exam Data 05/13/23 03:19 05/13/23 03:19 A&P Assessment and plan (1) Dehydration: (2) Hyponatremia: (3) Pancreatitis: Qualifiers: Acute pancreatitis complication: unspecified Chronicity: acute Pancreatitis type: unspecified pancreatitis type Qualified Code(s): K85.90 - Acute pancreatitis without necrosis or infection, unspecified (4) Hypertriglyceridemia: (5) GI bleed due to NSAIDs: (6) Memory changes: (7) Sleep disorder: (8) DM type 2 (diabetes mellitus, type 2): (9) Migraines: Plan Headache Complaining of sinus pain and nasal discharge We will give her Flonase Trial of sumatriptan P.o. morphine I have asked nurse to use oxygen for about an hour to see if headache would improve This could be due to overuse of Excedrin at home now she is having withdrawal from caffeine Triglyceride induced pancreatitis Tolerating clear liquid I will discharge her once triglycerides are below 500 I will recheck triglycerides at noon Continue insulin drip at 0.1 units/kg, glucose check every hour No signs of hypoglycemia I will discharge on fenofibrate at the time of discharge Hemoglobin A1c does not meet criteria to be on insulin Dr. Sheehan referral outpatient Pseudohyponatremia due to high triglycerides: No further work-up needed Clear liquid diet DVT prophylaxis on board Full code Attestations Medical Necessity Statement*: Discharge later today versus tomorrow Diagnoses Dehydration E86.0 Hyponatremia E87.1 Pancreatitis K85.90 Acute pancreatitis complication: unspecified Chronicity: acute Pancreatitis type: unspecified pancreatitis type Hypertriglyceridemia E78.1 GI bleed due to NSAIDs K92.2; T39.395A Memory changes R41.3 Sleep disorder G47.9 DM type 2 (diabetes mellitus, type 2) E11.9 Migraines G43.909
[2023-05-13 12:26] LABS: Hematocrit 25.4 % (37.0-47.0); Hemoglobin 7.9 g/dL (11.5-15.3)
[2023-05-13] MEDS: fluticasone nasal spray 16gm Btl 1 SPRAY NASAL ×2 (12:27→17:01)
[2023-05-13] MEDS: SUMAtriptan 25 mg Tablet PO (12:28)
[2023-05-13 12:34] LABS: Glucose Point of Care 107 mg/dL (70-110)
[2023-05-13 12:46] LABS: Triglycerides 1260 mg/dL (0-150)
[2023-05-13 13:05] LABS: LDL Cholesterol Direct 84 mg/dL (0-100)
[2023-05-13] MEDS: insulin regular-human 250 UNIT in sodium chloride 0.9% 250 ML IV (13:48)
[2023-05-13 13:52] LABS: Glucose Point of Care 113 mg/dL (70-110)
[2023-05-13 15:24] LABS: Glucose Point of Care 85 mg/dL (70-110)
[2023-05-13 15:39] LABS: Glucose Point of Care 123 mg/dL (70-110)
[2023-05-13 16:25] LABS: Glucose Point of Care 102 mg/dL (70-110)
[2023-05-13 16:25] LABS: Ferritin 340 ng/mL (15-150); Iron 16 ug/dL (37-145); Percent Saturation 7.5 % (20-50); Total Iron Binding Capacity 213 mcg/dl; Unsaturated Iron Binding 197 ug/dL (112-347)
[2023-05-13 16:40] LABS: Triglycerides 1198 mg/dL (0-150)
[2023-05-13 16:41] LABS: Vitamin B12 301 pg/mL (232-1245)
[2023-05-13] MEDS: morphine IR 15 mg Tablet PO (17:00)
[2023-05-13 17:31] LABS: LDL Cholesterol Direct 82 mg/dL (0-100)
[2023-05-13 17:37] LABS: Glucose Point of Care 87 mg/dL (70-110)
[2023-05-13 18:25] LABS: Glucose Point of Care 97 mg/dL (70-110)
[2023-05-13 19:45] LABS: Glucose Point of Care 111 mg/dL (70-110)
[2023-05-13 20:38] LABS: Glucose Point of Care 118 mg/dL (70-110)
[2023-05-13 21:39] LABS: Glucose Point of Care 108 mg/dL (70-110)
[2023-05-13] MEDS: trazodone 100 mg Tablet PO (21:45)
[2023-05-13 22:29] LABS: Glucose Point of Care 99 mg/dL (70-110)
[2023-05-13 23:32] LABS: Glucose Point of Care 86 mg/dL (70-110)
[2023-05-14] VITALS (28 sets, daily range): BP systolic 89–132; BP diastolic 55–92; PULSE 83–113; RESP 15–39; TEMP 36.9–37.7; O2SAT 91–100
[2023-05-14 00:30] LABS: Glucose Point of Care 68 mg/dL (70-110)
[2023-05-14] MEDS: dextrose 5%-ns + KCl 40 40 MEQ/1,000 ML BAG 125 MEQ IV ×4 (00:41→21:37)
[2023-05-14 01:34] LABS: Glucose Point of Care 118 mg/dL (70-110)
[2023-05-14 02:33] LABS: Glucose Point of Care 110 mg/dL (70-110)
[2023-05-14 03:34] LABS: Glucose Point of Care 106 mg/dL (70-110)
[2023-05-14 05:27] LABS: Basophils % 0.5 %; Eosinophils # 0.2 10^3/uL (0.0-0.8); Hematocrit 26.7 % (37.0-47.0); Hemoglobin 8.2 g/dL (11.5-15.3); Lymphocytes # 1.2 10^3/uL (0.8-4.8); Lymphocytes % 15.2 %; Mean Corpuscular HGB Conc 30.7 g/dL (30.0-36.0); Mean Corpuscular Hemoglobin 27.5 pg (28.0-34.0); Mean Corpuscular Volume 89.6 fl (81-99); Mean Platelet Volume 9.6 fL (7.4-10.4); Monocytes # 0.6 10^3/uL (0.2-0.9); Monocytes % 7.9 %; Neutrophils # 5.44 10^3/uL (1.8-7.7); Neutrophils % 71.8 %; Nucleated Red Blood Cells % 0 %; Platelet Count 277 10^3/cmm (130-400); Red Blood Count 2.98 10^6/uL (4.1-5.3); Red Cell Distribution Width 16.4 % (12.1-15.1); White Blood Count 7.6 10^3/uL (4.0-10.0)
[2023-05-14 05:41] LABS: Glucose Point of Care 93 mg/dL (70-110)
[2023-05-14] MEDS: ketorolac 30 mg/mL INJ 15 MG IVP ×3 (06:01→21:36)
[2023-05-14 06:03] LABS: Slide Review Slide Review Perform
[2023-05-14 06:12] LABS: Alanine Aminotransferase 9 U/L (0-33); Albumin Level 2.7 g/dL (3.5-5.2); Alkaline Phosphatase 75 U/L (35-105); Anion Gap 13.4 (5-19); Aspartate Amino Transferase 12 U/L (0-32); Calcium 7.1 mg/dL (8.5-10.5); Carbon Dioxide 23 mmol/L (22-29); Chloride 104 mmol/L (98-107); Globulin 2.6 g/dL (1.3-4.6); Glomerular Filtration Rate 245.2 mL/min (90-130); Glucose 70 mg/dL (65-115); Potassium 4.4 mmol/L (3.5-5.1); Sodium 136 mmol/L (136-145); Total Bilirubin 0.2 mg/dL (0.15-1.2); Total Protein 5.3 g/dL (6.6-8.7)
[2023-05-14 06:13] LABS: Blood Urea Nitrogen 1 mg/dL (6-20); Osmolality Calculated 276 mOsm/kg (285-295); Triglycerides 1170 mg/dL (0-150)
[2023-05-14] MEDS: ondansetron 2 mg/ML SDV 2 mL 4 MG IVP (06:13)
[2023-05-14] MEDS: morphine 4 mg/mL SDV 1 mL 2 MG IVP ×2 (06:13→19:53)
[2023-05-14 06:27] LABS: LDL Cholesterol Direct 108 mg/dL (0-100)
[2023-05-14 08:11] LABS: Glucose Point of Care 97 mg/dL (70-110)
[2023-05-14] MEDS: acetaminophen 325 mg Tablet 650 MG PO (08:20)
[2023-05-14] MEDS: fenofibrate 145 mg Tablet PO (08:20)
[2023-05-14] MEDS: lamoTRIgine 100 mg Tablet 200 MG PO (08:20)
[2023-05-14] MEDS: escitalopram 10 mg Tablet 20 MG PO (08:20)
[2023-05-14] MEDS: fluticasone nasal spray 16gm Btl 1 SPRAY NASAL ×2 (08:20→20:23)
[2023-05-14 09:21] LABS: Glucose Point of Care 72 mg/dL (70-110)
--- NOTE | 2023-05-14 10:15 | PM.PN ---
Subjective Subjective: Patient was complaining Del pain, I have made her n.p.o. Increase insulin drip rate to 7 from 5 Recheck triglyceride in the evening Patient was complaining of worsening abdominal pain today No fever Added fenofibrate Vitals/I&O/Wt Last Vital Signs Temp 99.9 F H 05/14/23 06:00 Pulse 94 05/14/23 08:00 Resp 19 H 05/14/23 08:00 BP 110/77 05/14/23 08:00 Pulse Ox 92 05/14/23 08:00 O2 Del Method Nasal Cannula 05/14/23 06:00 O2 Flow Rate 3.5 05/13/23 20:00 05/13/23 05/14/23 05/14/23 22:59 06:59 14:59 Intake Total 2170 / 3849.417 1350 / 5199.417 958.333 / 958.333 Output Total 850 / 1550 800 / 2350 Balance 1320 / 2299.417 550 / 2849.417 958.333 / 958.333 Physical Exam Narrative: Awake and alert Clinically looks slightly dehydrated Dry mucous membranes Abdomen slight tenderness midepigastric region Awake and alert GCS 15 Nonfocal neuro exam EOMI, PERRLA S1, S2 sinus tachycardia Data 05/14/23 04:20 05/14/23 04:20 Micro: Microbiology 05/13/23 13:46 Occult Blood (FIT) - Final Stool - Stool Aspirate A&P Assessment and plan (1) Dehydration: (2) Hyponatremia: (3) Pancreatitis: Qualifiers: Acute pancreatitis complication: unspecified Chronicity: acute Pancreatitis type: unspecified pancreatitis type Qualified Code(s): K85.90 - Acute pancreatitis without necrosis or infection, unspecified (4) Abdominal pain: Qualifiers: Abdominal location: upper abdomen, unspecified Qualified Code(s): R10.10 - Upper abdominal pain, unspecified (5) Hypertriglyceridemia: (6) GI bleed due to NSAIDs: (7) Acute on chronic anemia: Plan Acute on chronic anemia: Hemoglobin stable Patient has not noticed any dark-colored stools She has been experiencing some blood with nasal secretions however it is not profuse Pancreatitis: Abdominal pain worsened today I will make her n.p.o. again Repeat CT scan Low-grade fever No active sign of sepsis or necrotic pancreas at the site No need for antibiotics at this point Continue IV fluids and insulin Check triglyceride in the evening Added fenofibrate InCrease insulin rate to 7 instead of 5 ICU nurse notified Headache: Slightly improved Patient could not be discharged today N.p.o. Full code Attestations Medical Necessity Statement*: Continue ICU management Diagnoses Dehydration E86.0 Hyponatremia E87.1 Pancreatitis K85.90 Acute pancreatitis complication: unspecified Chronicity: acute Pancreatitis type: unspecified pancreatitis type Abdominal pain R10.10 Abdominal location: upper abdomen, unspecified Hypertriglyceridemia E78.1 GI bleed due to NSAIDs K92.2; T39.395A Acute on chronic anemia D64.9
[2023-05-14 10:16] LABS: Glucose Point of Care 61 mg/dL (70-110)
--- NOTE | 2023-05-14 10:20 | CTR_ITS ---
PROCEDURE INFORMATION: Exam: CT Abdomen With Contrast Exam date and time: 05/14/2023 2:02 PM Age: 43 years old Clinical indication: Condition or disease; Pancreatic condition; Pancreatitis.No history of trauma or recent surgery is provided. TECHNIQUE: Imaging protocol: Computed tomography of the abdomen with contrast. 200image(s) are provided. Radiation optimization: All CT scans at this facility use at least one of these dose optimization techniques: automated exposure control; mA and/or kV adjustment per patient size (includes targeted exams where dose is matched to clinical indication); or iterative reconstruction. Contrast material: OMNI 350; Contrast volume: 100 ml; Contrast route: INTRAVENOUS (IV); Other technique: Axial images are available with sagittal and coronal reconstruction views. Automated dose exposure control is utilized. The DLP is 658.61. REPORTING DATA: Count of CT and Cardiac NM exams in prior 12 months: This patient has received 2 known CTs and 0 known cardiac nuclear medicine studies in the 12 months prior to the current study. COMPARISON: CT abdomen pelvis w con* [id number] 05/11/2023 4:04 PM RADIATION DOSE METRICS: Total DLP (mGy-cm): 658.61 FINDINGS: Lungs: No lobar consolidation is appreciated. There is however some interval patchy airspace inflammatory appearing opacification along with septal line thickening at the lung bases. Pleural spaces: There are small interval pleural effusions demonstrated right slightly larger than left. Liver: There is overall hepatomegaly and steatosis type appearance. Some chronic hepatic disease could also present in this fashion. There appears to be some transient hepatic type enhancement of the right lobe similar overall. There is some subtle periportal tracking and portal level edema. Gallbladder and bile ducts: The gallbladder appears patulous with trace sludge. Pancreas: No interval pancreatic ductal calcification is appreciated with inflammatory stranding. Spleen: The spleen is mildly enlarged. Adrenal glands: Unremarkable. Kidneys and ureters: There is homogeneous renal parenchymal enhancement with some nonobstructive calcific appearance centrally. Stomach and bowel: Some aspects of the colon are undistended. This may also be peristaltic related.There is abundant stool present limiting mucosal detail evaluation.The bowel gas pattern appears nonobstructive. There is a small sliding-type hiatal hernia demonstrated with slight gastroesophageal fold thickening. Appendix: The appendix level is not included for evaluation. Intraperitoneal space: No free abdominal air is appreciated. There is abdominal fluid and stranding appearing slightly increased overall suggestive of some progressive inflammation with history of pancreatitis provided. This demonstrates serous Hounsfield units of approximately 15. Vasculature: There is a similar inferior vena cava filter present. Lymph nodes: There are some reactive perivascular and abdominal node changes similar overall. Bones/joints: Osseous alignment is maintained.No interval displaced fracture or dislocation is appreciated. Soft tissues: No radiopaque foreign body or subcutaneous emphysema is appreciated. Other findings: There is some motion artifact present. No other significant interval changes are appreciated. CT/CT abdomen w con* [id number] IMPRESSION: 1. There is a history of pancreatitis provided with some progressive inflammatory stranding and phlegmon type appearance extending both central inferiorly as well as of the periportal and perigastric margins with no internal air-fluid levels currently appreciated. 2. In the interval there are small pleural effusions demonstrated along with some early patchy atelectasis or inflammatory appearance of the lung bases with no lobar type consolidation currently appreciated. COMMENTS: For patients with an IVC filter, recommend assessment for a management plan for the patient's IVC filter. If there is no established management plan, recommend referral to an interventional clinician on a nonemergent basis for evaluation.
[2023-05-14 11:10] LABS: Glucose Point of Care 80 mg/dL (70-110)
[2023-05-14] MEDS: morphine IR 15 mg Tablet PO ×2 (11:34→17:53)
[2023-05-14] MEDS: pantoprazole 40 mg SDV IVP ×2 (11:35→21:36)
[2023-05-14 13:05] LABS: Glucose Point of Care 91 mg/dL (70-110)
[2023-05-14] MEDS: iohexol 350 mg/mL 500 mL Btl (per mL) IV (14:13)
[2023-05-14 17:38] LABS: Glucose Point of Care 80 mg/dL (70-110)
[2023-05-14 17:38] LABS: Glucose Point of Care 81 mg/dL (70-110)
[2023-05-14 20:00] LABS: Glucose Point of Care 74 mg/dL (70-110)
[2023-05-14 21:00] LABS: Glucose Point of Care 72 mg/dL (70-110)
[2023-05-14] MEDS: trazodone 100 mg Tablet PO (21:36)
[2023-05-14 21:55] LABS: Glucose Point of Care 76 mg/dL (70-110)
[2023-05-14 22:36] LABS: Glucose Point of Care 105 mg/dL (70-110)
[2023-05-14 23:36] LABS: Glucose Point of Care 88 mg/dL (70-110)
[2023-05-15] VITALS (31 sets, daily range): BP systolic 90–127; BP diastolic 60–97; PULSE 82–112; RESP 16–28; TEMP 37.2; O2SAT 96–99
[2023-05-15 00:49] LABS: Glucose Point of Care 121 mg/dL (70-110)
[2023-05-15] MEDS: morphine 4 mg/mL SDV 1 mL 2 MG IVP ×5 (00:53→21:27)
[2023-05-15 01:34] LABS: Glucose Point of Care 117 mg/dL (70-110)
[2023-05-15 02:38] LABS: Glucose Point of Care 97 mg/dL (70-110)
[2023-05-15 03:45] LABS: Glucose Point of Care 78 mg/dL (70-110)
[2023-05-15 03:45] LABS: Basophils % 0.4 %; Eosinophils # 0.2 10^3/uL (0.0-0.8); Eosinophils % 2.7 %; Hematocrit 24.2 % (37.0-47.0); Hemoglobin 7.4 g/dL (11.5-15.3); Lymphocytes # 1.2 10^3/uL (0.8-4.8); Lymphocytes % 14.3 %; Mean Corpuscular HGB Conc 30.6 g/dL (30.0-36.0); Mean Corpuscular Hemoglobin 26.8 pg (28.0-34.0); Mean Corpuscular Volume 87.7 fl (81-99); Mean Platelet Volume 9.7 fL (7.4-10.4); Monocytes # 0.7 10^3/uL (0.2-0.9); Monocytes % 8.5 %; Neutrophils # 5.91 10^3/uL (1.8-7.7); Neutrophils % 69.7 %; Nucleated Red Blood Cells % 0 %; Platelet Count 280 10^3/cmm (130-400); Red Blood Count 2.76 10^6/uL (4.1-5.3); Red Cell Distribution Width 16.2 % (12.1-15.1); White Blood Count 8.5 10^3/uL (4.0-10.0)
[2023-05-15 04:01] LABS: Triglycerides 699 mg/dL (0-150)
[2023-05-15 04:06] LABS: Alanine Aminotransferase 8 U/L (0-33); Albumin Level 2.8 g/dL (3.5-5.2); Alkaline Phosphatase 78 U/L (35-105); Aspartate Amino Transferase 13 U/L (0-32); Calcium 7.1 mg/dL (8.5-10.5); Carbon Dioxide 25 mmol/L (22-29); Chloride 104 mmol/L (98-107); Globulin 2.4 g/dL (1.3-4.6); Glomerular Filtration Rate 391.4 mL/min (90-130); Glucose 81 mg/dL (65-115); Sodium 138 mmol/L (136-145); Total Bilirubin 0.2 mg/dL (0.15-1.2); Total Protein 5.2 g/dL (6.6-8.7)
[2023-05-15 04:09] LABS: Blood Urea Nitrogen 1 mg/dL (6-20); Osmolality Calculated 281 mOsm/kg (285-295)
[2023-05-15 04:20] LABS: LDL Cholesterol Direct 154 mg/dL (0-100)
[2023-05-15 04:40] LABS: Glucose Point of Care 59 mg/dL (70-110)
[2023-05-15] MEDS: dextrose 50% syringe 50 mL 25 ML IVP ×2 (04:40→09:03)
[2023-05-15] MEDS: ketorolac 30 mg/mL INJ 15 MG IVP ×3 (05:34→21:27)
[2023-05-15] MEDS: dextrose 5%-ns + KCl 40 40 MEQ/1,000 ML BAG 125 MEQ IV ×3 (05:34→19:00)
[2023-05-15] MEDS: morphine IR 15 mg Tablet PO ×4 (05:35→19:30)
[2023-05-15 05:43] LABS: Glucose Point of Care 129 mg/dL (70-110)
[2023-05-15 06:29] LABS: Glucose Point of Care 88 mg/dL (70-110)
[2023-05-15 08:06] LABS: Glucose Point of Care 65 mg/dL (70-110)
[2023-05-15] MEDS: escitalopram 10 mg Tablet 20 MG PO (09:02)
[2023-05-15] MEDS: lamoTRIgine 100 mg Tablet 200 MG PO (09:02)
[2023-05-15] MEDS: fenofibrate 145 mg Tablet PO (09:02)
[2023-05-15] MEDS: pantoprazole 40 mg SDV IVP ×2 (09:03→21:26)
[2023-05-15] MEDS: fluticasone nasal spray 16gm Btl 1 SPRAY NASAL ×2 (09:04→17:39)
[2023-05-15 10:39] LABS: Glucose Point of Care 107 mg/dL (70-110)
[2023-05-15] MEDS: ondansetron 2 mg/ML SDV 2 mL 4 MG IVP ×2 (10:43→19:31)
--- NOTE | 2023-05-15 11:03 | P.PN_ITS ---
Subjective Subjective: FOBT negative Drop in hemoglobin most likely dilutional CT abdomen pelvis findings were discussed with Dr. Britton, there is more edema in her stomach and around the pancreas however there is no abscess or necrotic pancreatic changes I did inform the patient that in case of any signs of septic shock fever worsening leukocytosis I will pressure was stable to transfer her but at this point there is no need We will keep her n.p.o. status Triglycerides around 690 She became hyperglycemic required dextrose amps as well currently insulin is at 2 Vitals/I&O/Wt Last Vital Signs Temp 99 F 05/15/23 04:00 Pulse 96 05/15/23 10:00 Resp 20 H 05/15/23 10:41 BP 122/77 05/15/23 10:00 Pulse Ox 99 05/15/23 08:00 O2 Del Method Nasal Cannula 05/15/23 04:00 O2 Flow Rate 3.5 05/13/23 20:00 05/14/23 05/15/23 05/15/23 22:59 06:59 14:59 Intake Total 2008.333 / 2966.666 1215.75 / 4182.416 Output Total 1500 / 3000 0 / 3000 Balance 508.333 / -33.334 1215.75 / 1182.416 Physical Exam Narrative: Patient is complaining of abdominal pain Pale complexion Tender abdomen No peritonitis Awake and alert GCS 15 Nonfocal neuro exam S1, S2 Data 05/15/23 02:33 05/15/23 02:33 A&P Assessment and plan (1) Dehydration: (2) Acute on chronic anemia: (3) Hyponatremia: (4) Pancreatitis: Qualifiers: Acute pancreatitis complication: unspecified Chronicity: acute Pancreatitis type: unspecified pancreatitis type Qualified Code(s): K85.90 - Acute pancreatitis without necrosis or infection, unspecified (5) Abdominal pain: Qualifiers: Abdominal location: upper abdomen, unspecified Qualified Code(s): R10.10 - Upper abdominal pain, unspecified (6) Hypertriglyceridemia: (7) GI bleed due to NSAIDs: Plan Hypertriglyceridemia induced pancreatitis No active signs of necrotic pancreas or sepsis Increase edema around pancreas and abdominal area We will add antibiotics Continue IV fluids along with lower rate of insulin, we have decided to use lower rate because of low blood sugars Patient is not ready to be discharged We need to trend her triglycerides Drop in H&H noted Repeat dilutional? FOBT negative Continue ICU management Full code Continue every 12 hours IV Protonix Discussed radiological findings with Dr. Britton who does not think patient needs CT-guided drainage at this point for edema there is no abscess or necrotic pancreatic changes Updated ICU nurse, spoke with the today as well I would allow patient to have clear liquids once triglyceride below 500 Attestations Medical Necessity Statement*: Continue ICU management Coding Level of Care Code Critical Care >/= 30 minutes Critical care time (in minutes): 35 The high probability of a clinically significant, sudden or life threatening deterioration, as referenced in this documentation, required my full and direct attention, intervention and personal management. The critical care time shown is in addition to time spent performing any reported separately billable procedures and includes the following: [x] Data and vital sign review and interpretation [x ] Patient assessment, examination and intervention [x] Medication orders and management [x] Patient/Family updates as able [x] Care Coordination and Documentation. Other Coding Information Procedural care (documented in this note), Procedural care (documented in another note), Prolonged care (total time indicated above or notated here), Shared care and Other care Diagnoses Dehydration E86.0 Acute on chronic anemia D64.9 Hyponatremia E87.1 Pancreatitis K85.90 Acute pancreatitis complication: unspecified Chronicity: acute Pancreatitis type: unspecified pancreatitis type Abdominal pain R10.10 Abdominal location: upper abdomen, unspecified Hypertriglyceridemia E78.1 GI bleed due to NSAIDs K92.2; T39.395A
[2023-05-15 11:41] LABS: Hematocrit 26.3 % (37.0-47.0); Hemoglobin 7.9 g/dL (11.5-15.3)
[2023-05-15 11:50] LABS: Glucose Point of Care 80 mg/dL (70-110)
[2023-05-15] MEDS: piperacillin-tazobactam 4.5 GM in sodium chloride 0.9% (plus) 50 ML IV ×2 (12:28→20:07)
[2023-05-15] MEDS: FUROsemide 10 mg/mL SDV 2mL 20 MG IVP (12:28)
[2023-05-15 12:35] LABS: Glucose Point of Care 70 mg/dL (70-110)
[2023-05-15 14:28] LABS: Glucose Point of Care 74 mg/dL (70-110)
[2023-05-15 15:13] LABS: Glucose Point of Care 65 mg/dL (70-110)
[2023-05-15 15:25] LABS: Glucose Point of Care 87 mg/dL (70-110)
[2023-05-15 15:41] LABS: Triglycerides 559 mg/dL (0-150)
[2023-05-15 16:50] LABS: Glucose Point of Care 78 mg/dL (70-110)
[2023-05-15 19:09] LABS: Glucose Point of Care 85 mg/dL (70-110)
[2023-05-15 19:09] LABS: Glucose Point of Care 86 mg/dL (70-110)
[2023-05-15 19:23] LABS: Glucose Point of Care 85 mg/dL (70-110)
[2023-05-15] MEDS: insulin regular-human 250 UNIT in sodium chloride 0.9% 250 ML IV (20:10)
[2023-05-15 20:34] LABS: Glucose Point of Care 92 mg/dL (70-110)
[2023-05-15 21:50] LABS: Glucose Point of Care 61 mg/dL (70-110)
[2023-05-15] MEDS: dextrose 50% syringe 50 mL IVP (22:04)
[2023-05-15] MEDS: trazodone 100 mg Tablet PO (22:09)
[2023-05-15 22:50] LABS: LDL Cholesterol Direct 204 mg/dL (0-100)
[2023-05-15 23:02] LABS: Glucose Point of Care 131 mg/dL (70-110)
[2023-05-15 23:54] LABS: Glucose Point of Care 102 mg/dL (70-110)
[2023-05-16] VITALS (34 sets, daily range): BP systolic 86–131; BP diastolic 54–94; PULSE 81–105; RESP 12–29; TEMP 35.9–37.7; O2SAT 86–100
[2023-05-16] MEDS: morphine 4 mg/mL SDV 1 mL 2 MG IVP ×3 (01:21→21:42)
[2023-05-16] MEDS: dextrose 50% syringe 50 mL IVP (01:56)
[2023-05-16 01:57] LABS: Glucose Point of Care 49 mg/dL (70-110)
[2023-05-16 01:57] LABS: Glucose Point of Care 51 mg/dL (70-110)
[2023-05-16] MEDS: dextrose 5%-ns + KCl 40 40 MEQ/1,000 ML BAG 125 MEQ IV (02:07)
[2023-05-16 03:06] LABS: Basophils # 0.1 10^3/uL (0.0-0.1); Basophils % 0.7 %; Eosinophils # 0.4 10^3/uL (0.0-0.8); Eosinophils % 4.3 %; Hematocrit 21.7 % (37.0-47.0); Lymphocytes # 1.3 10^3/uL (0.8-4.8); Lymphocytes % 15.2 %; Mean Corpuscular HGB Conc 29.5 g/dL (30.0-36.0); Mean Corpuscular Hemoglobin 26.8 pg (28.0-34.0); Mean Corpuscular Volume 90.8 fl (81-99); Mean Platelet Volume 9.6 fL (7.4-10.4); Monocytes # 0.8 10^3/uL (0.2-0.9); Monocytes % 9.1 %; Neutrophils # 5.48 10^3/uL (1.8-7.7); Neutrophils % 64.8 %; Nucleated Red Blood Cells % 0.2 %; Platelet Count 340 10^3/cmm (130-400); Red Blood Count 2.39 10^6/uL (4.1-5.3); Red Cell Distribution Width 16.4 % (12.1-15.1); White Blood Count 8.5 10^3/uL (4.0-10.0)
[2023-05-16 03:11] LABS: Glucose Point of Care 130 mg/dL (70-110)
[2023-05-16 03:20] LABS: Alanine Aminotransferase 6 U/L (0-33); Albumin Level 2.4 g/dL (3.5-5.2); Alkaline Phosphatase 70 U/L (35-105); Anion Gap 11.9 (5-19); Aspartate Amino Transferase 11 U/L (0-32); Blood Urea Nitrogen 1 mg/dL (6-20); Calcium 7.4 mg/dL (8.5-10.5); Carbon Dioxide 25 mmol/L (22-29); Chloride 104 mmol/L (98-107); Globulin 3.1 g/dL (1.3-4.6); Glomerular Filtration Rate 245.2 mL/min (90-130); Glucose 130 mg/dL (65-115); Osmolality Calculated 282 mOsm/kg (285-295); Potassium 3.9 mmol/L (3.5-5.1); Sodium 137 mmol/L (136-145); Total Bilirubin 0.2 mg/dL (0.15-1.2); Total Protein 5.5 g/dL (6.6-8.7)
[2023-05-16] MEDS: piperacillin-tazobactam 4.5 GM in sodium chloride 0.9% (plus) 50 ML IV ×3 (03:25→19:17)
[2023-05-16 03:27] LABS: Hemoglobin 6.4 g/dL (11.5-15.3)
[2023-05-16 03:28] LABS: Slide Review Slide Review Perform
[2023-05-16 05:07] LABS: Glucose Point of Care 87 mg/dL (70-110)
[2023-05-16] MEDS: ketorolac 30 mg/mL INJ 15 MG IVP ×2 (05:20→13:57)
--- NOTE | 2023-05-16 05:43 | PC.NURSE ---
Dr. Kohler contacted. Pt has limited IV access and medications running are not compatible with one another. Blood cannot run with any medications. Pt is hypodermically stable and not experiencing any s/s of low hgb, so decision was made to hold blood transfusion until the current zosyn dose is complete.
[2023-05-16 06:17] LABS: Glucose Point of Care 84 mg/dL (70-110)
[2023-05-16 07:45] LABS: Triglycerides 413 mg/dL (0-150)
[2023-05-16 08:17] LABS: Glucose Point of Care 84 mg/dL (70-110)
[2023-05-16 08:25] LABS: LDL Cholesterol Direct 211 mg/dL (0-100)
[2023-05-16] MEDS: fenofibrate 145 mg Tablet PO (09:12)
[2023-05-16] MEDS: fluticasone nasal spray 16gm Btl 1 SPRAY NASAL ×2 (09:12→17:26)
[2023-05-16] MEDS: escitalopram 10 mg Tablet 20 MG PO (09:12)
[2023-05-16] MEDS: pantoprazole 40 mg SDV IVP ×2 (09:12→21:08)
[2023-05-16] MEDS: lamoTRIgine 100 mg Tablet 200 MG PO (09:12)
[2023-05-16 09:31] LABS: Glucose Point of Care 101 mg/dL (70-110)
[2023-05-16] MEDS: ondansetron 2 mg/ML SDV 2 mL 4 MG IVP ×2 (10:36→21:37)
[2023-05-16] MEDS: aluminum-mag hydrox-simethicon 30 ML, sucralfate oral liq 1 GM PO (10:46)
[2023-05-16 11:32] LABS: Glucose Point of Care 116 mg/dL (70-110)
[2023-05-16 12:23] LABS: Hematocrit 26.2 % (37.0-47.0)
--- NOTE | 2023-05-16 13:27 | P.PN_ITS ---
Subjective Subjective: Requested Dr. Mir to see if patient could go for EGD today Hemoglobin is 8 after blood transfusion No active bleeding noted FOBT negative Vitals/I&O/Wt Last Vital Signs Temp 98.2 F 05/16/23 10:00 Pulse 89 05/16/23 10:00 Resp 22 H 05/16/23 10:00 BP 93/65 05/16/23 10:00 Pulse Ox 98 05/16/23 10:00 O2 Del Method Nasal Cannula 05/16/23 10:00 O2 Flow Rate 2 05/16/23 10:00 05/15/23 05/16/23 05/16/23 22:59 06:59 14:59 Intake Total 1302.5 / 2165.0 1388.417 / 3553.417 1376.517 / 1376.517 Output Total 300 / 300 Balance 1302.5 / 2165.0 1388.417 / 3553.417 1076.517 / 1076.517 Physical Exam Narrative: Patient is feeling slightly better Awake and alert Getting blood transfusion S1, S2 Abdomen mildly tender epigastric region Currently on 2 L nasal cannula Data 05/16/23 12:06 05/16/23 02:45 A&P Assessment and plan (1) Acute on chronic anemia: (2) Hyponatremia: (3) Pancreatitis: Qualifiers: Acute pancreatitis complication: unspecified Chronicity: acute Pancreatitis type: unspecified pancreatitis type Qualified Code(s): K85.90 - Acute pancreatitis without necrosis or infection, unspecified (4) Abdominal pain: Qualifiers: Abdominal location: upper abdomen, unspecified Qualified Code(s): R10.10 - Upper abdominal pain, unspecified (5) Hyperlipidemia: Qualifiers: Hyperlipidemia type: mixed hyperlipidemia Qualified Code(s): E78.2 - Mixed hyperlipidemia (6) Hypertriglyceridemia: (7) GI bleed due to NSAIDs: Plan Acute on chronic anemia No active bleeding noted so far FOBT negative Considering fluid collection in her stomach fundus will request for EGD, Dr. Isaias carter consulted Plan for EGD tomorrow morning N.p.o. after midnight Hypertriglyceridemia induced pancreatitis Triglyceride below 500 We can resume clear liquids today No signs of necrotic pancreas or sepsis Positive fluid balance, will trial low-dose Lasix Full code Clinical diet DVT prophylaxis on hold Protonix 40 mg IV every 12 hours Patient has history of migraine does take Excedrin on quite frequent basis, concern for NSAID induced gastritis Attestations Medical Necessity Statement*: Possible discharge tomorrow after endoscopy Diagnoses Acute on chronic anemia D64.9 Hyponatremia E87.1 Pancreatitis K85.90 Acute pancreatitis complication: unspecified Chronicity: acute Pancreatitis type: unspecified pancreatitis type Abdominal pain R10.10 Abdominal location: upper abdomen, unspecified Hyperlipidemia E78.2 Hyperlipidemia type: mixed hyperlipidemia Hypertriglyceridemia E78.1 GI bleed due to NSAIDs K92.2; T39.395A
--- NOTE | 2023-05-16 13:56 | PM.CONSULT ---
Providers/Reason For Consult Consulting Physician/Specialty*: Dr. William Mir, DO/General surgery Reason for Consult*: Anemia Attending Physician: Harrison Delgado MD Primary Care Provider: Cristina Cloud MD History of Present Illness History of Present Illness Guerrero Pugh is a 43 year old female who is currently in the hospital for acute pancreatitis. She reports that she began feeling some epigastric tenderness 6 days ago and did not tolerate food very well. Then 5 days ago she started having emesis followed by hematemesis and severe epigastric pain. Eating and palpation make the pain worse. Nothing makes the pain better. The pain does radiate to the back. This morning she is bending over an emesis basin and still not tolerating clear liquids. She had a drop in hemoglobin and required transfusion of PRBCs overnight. General surgery was consulted for possible EGD. Review of Systems General: Reports: 10 or more systems reviewed and unremarkable except in HPI and below Medications/Allergies Home Medications Medication Instructions Recorded Confirmed Last Taken Type acetaminophen 325 mg capsule 325 mg PO Q4H PRN fever or pain 04/03/22 05/11/23 Unknown Rx #60 caps escitalopram oxalate 20 mg tablet 20 mg PO DAILY #30 tabs 01/05/23 05/11/23 05/11/23 Rx lamotrigine 100 mg tablet 200 mg PO DAILY #60 tabs 01/05/23 05/11/23 05/11/23 Rx melatonin 10 mg tablet 10 mg PO BEDTIME 01/30/23 05/11/23 05/10/23 History cyclobenzaprine 10 mg tablet 10 mg PO TID PRN muscle spasm #20 05/10/23 05/11/23 Unknown Rx tabs methylprednisolone 4 mg tablets in See Rx Instructions PO PER PKG DIR 05/10/23 05/11/23 05/11/23 Rx a dose pack (Medrol (Darwin)) #21 ea bupropion HCl 75 mg tablet 75 mg PO QAM 05/11/23 05/11/23 05/11/23 History estradiol 0.5 mg tablet 0.5 mg PO DAILY 05/11/23 05/11/23 05/11/23 History glimepiride 2 mg tablet 2 mg PO DAILY 05/11/23 05/11/23 05/11/23 History ibuprofen 200 mg capsule 800 mg PO Q6H PRN Pain 05/11/23 05/11/23 05/10/23 History metformin 500 mg tablet 500 mg PO BID 05/11/23 05/11/23 05/11/23 History trazodone 100 mg tablet 100 mg PO QPM PRN insomnia 05/11/23 05/11/23 05/10/23 History Allergies Allergy/AdvReac Type Severity Reaction Status Date / Time No Known Allergies Allergy Verified 05/10/23 14:42 Current Medications Generic Name Dose Route Start Last Admin Trade Name Selina PRN Reason Stop Dose Admin Acetaminophen 650 mg 05/11/23 21:39 05/14/23 08:20 Acetaminophen 325 Mg Tablet PO 650 mg Q6H PRN Administration Mild/Mod Pain Or Temp >/= 101 Escitalopram Oxalate 20 mg 05/12/23 09:00 05/16/23 09:12 Escitalopram 10 Mg Tablet PO 20 mg DAILY LULÚ Administration Fenofibrate 145 mg 05/14/23 09:00 05/16/23 09:12 Fenofibrate 145 Mg Tablet PO 145 mg DAILY LULÚ Administration Fluticasone Propionate 1 spray 05/13/23 11:35 05/16/23 09:12 Fluticasone Nasal [place] 16gm Btl NASAL 1 spray BID LULÚ Administration Heparin Sodium (Porcine) 5,000 unit 05/12/23 19:00 05/13/23 06:22 Heparin 5,000 Unit/Ml Inj 1 Ml SUBCUT 5,000 unit Q12H LULÚ Administration Piperacillin Sod/Tazobactam 50 mls @ 12.5 mls/hr 05/15/23 12:00 05/16/23 09:03 Sod 4.5 gm/ Sodium Chloride IV Infused Q8H LULÚ Infusion Ketorolac Tromethamine 15 mg 05/11/23 22:15 05/16/23 05:20 Ketorolac 30 Mg/Ml Inj IVP 05/16/23 22:14 15 mg Q8H LULÚ Administration Lamotrigine 200 mg 05/12/23 09:00 05/16/23 09:12 Lamotrigine 100 Mg Tablet PO 200 mg DAILY LULÚ Administration Morphine Sulfate 2 mg 05/11/23 21:39 05/16/23 05:19 Morphine 4 Mg/Ml Sdv 1 Ml IVP 2 mg Q4H PRN Administration SEVERE PAIN Morphine Sulfate 15 mg 05/13/23 11:31 05/15/23 19:30 Morphine Ir 15 Mg Tablet PO 15 mg Q4H PRN Administration SEVERE PAIN Non-Formulary Medication 75 mg 05/12/23 06:00 05/16/23 03:29 Bupropion Hcl PO Not Given QAM LULÚ Ondansetron HCl 4 mg 05/11/23 21:39 05/16/23 10:36 Ondansetron 2 Mg/Ml Sdv 2 Ml IVP 4 mg Q8H PRN Administration vomiting, or N/V if npo Pantoprazole Sodium 40 mg 05/11/23 21:45 05/16/23 09:12 Pantoprazole 40 Mg Sdv IVP 40 mg Q12H LULÚ Administration Trazodone HCl 100 mg 05/12/23 04:31 05/15/23 22:09 Trazodone 100 Mg Tablet PO 100 mg BEDTIME PRN Administration insomnia PFSH Acute PFSH: Medical History Bipolar II disorder DM type 2 (diabetes mellitus, type 2) [place] filter in place History of pulmonary embolus during History of tibial fracture Migraines Psychiatric care Surgical History History of section History of hysterectomy History of lithotripsy History of superior vena cava filter placement History of surgery on lower extremity repair of l tibia fracture, hardware in place Family History Grandmother Anesthesia complication maternal Diabetes maternal, maternal great Colon cancer paternal, age unknown Family/Other Hyperlipidemia maternal side Hypertension maternal side Thyroid condition nephew Mother Thyroid condition Sister Thyroid condition Grandfather Heart disease maternal and paternal Denies family history of Ovarian cancer Clotting disorder Breast cancer Bleeding disorder Uterine cancer Stroke Social History Smoking and tobacco status: never smoked Second hand smoke exposure: Yes Alcohol intake: current Alcohol intake frequency: holidays/special occasions only Marital status: Number of children: 4 Current occupational status: unemployed Agree to transfusion: Yes Vitals/I&O/Wt Last Vital Signs Temp 98.2 F 05/16/23 10:00 Pulse 89 05/16/23 10:00 Resp 22 H 05/16/23 10:00 BP 93/65 05/16/23 10:00 Pulse Ox 98 05/16/23 10:00 O2 Del Method Nasal Cannula 05/16/23 10:00 O2 Flow Rate 2 05/16/23 10:00 05/15/23 05/16/23 05/16/23 22:59 06:59 14:59 Intake Total 1302.5 / 2165.0 1388.417 / 3553.417 1376.517 / 1376.517 Output Total 300 / 300 Balance 1302.5 / 2165.0 1388.417 / 3553.417 1076.517 / 1076.517 Physical Exam Narrative: General : Patient is well developed , no acute distress, oriented x3 Head : Normal cephalic, a-traumatic. Ears : Pinnae and external canal are normal. Hearing is normal. Eyes : PERRLA, Sclera and injection are normal. No conjunctival discharge. Nose : Mucous membranes are without erythema. Throat : buccal mucosa is normal, gums are without significant recession or hypertrophy. Lungs : Equal chest rise bilaterally, no use of accessory muscles, trachea is midline. Cor : Rate and rhythm are normal. Abdomen : Soft, mildly distended, tender to palpation over epigastrium, no g/r/m Extremities : No edema, no cyanosis or clubbing, dorsalis pedis pulses are present bilaterally, non-tender to palpation of calves. Upper extremities are normal bilaterally. Back : non-tender to palpation, no CVA tenderness. Neuro : CN II - XII intact, Upper and lower extremities have equal and full strength Data 05/16/23 12:06 05/16/23 02:45 A&P Assessment and plan (1) Pancreatitis: Qualifiers: Acute pancreatitis complication: unspecified Chronicity: acute Pancreatitis type: unspecified pancreatitis type Qualified Code(s): K85.90 - Acute pancreatitis without necrosis or infection, unspecified (2) Hypertriglyceridemia: (3) Acute on chronic anemia: (4) Hematemesis: Plan N.p.o. after midnight EGD in the morning The risks and benefits of the procedure, including bleeding, infection, intestinal perforation requiring surgery, missed lesion were explained to the patient. The patient is understanding of the risks and wishes to proceed. Coding Level of Care Code 17631 Diagnoses Pancreatitis K85.90 Acute pancreatitis complication: unspecified Chronicity: acute Pancreatitis type: unspecified pancreatitis type Hypertriglyceridemia E78.1 Acute on chronic anemia D64.9 Hematemesis K92.0
[2023-05-16 17:48] LABS: Glucose Point of Care 152 mg/dL (70-110)
--- NOTE | 2023-05-16 17:59 | PC.NURSE ---
Addendum entered by Gary Villarreal RN 05/16/23 18:41: Shift SUmmary: Uneventful shift. Patient rested in bed throughout the day, but was up frequently to use the bathroom. Fluids and insulin drip stopped due to triglycerides below 500. CLear liquid diet today, but patient has drank very little due to it causing stomach and back pain. EGD planned for tommorow. NPO at midnight. Original Note: Shift SUmmary: Uneventful shift. Patient rested in bed throughout the day, but was up frequently to use the bathroom. Fluids and insulin drip stopped due to triglycerides below 500. CLear liquid diet today, but patient has drank very little due to it causing stomach and back pain. EGB planned for tommorow. NPO at midnight.
[2023-05-16] MEDS: morphine IR 15 mg Tablet PO (20:24)
[2023-05-16] MEDS: trazodone 100 mg Tablet PO (22:18)
[2023-05-16 23:01] LABS: Glucose Point of Care 176 mg/dL (70-110)
[2023-05-17] VITALS (30 sets, daily range): BP systolic 76–126; BP diastolic 56–86; PULSE 78–90; RESP 15–35; TEMP 36.2–37.1; O2SAT 81–98
[2023-05-17] MEDS: morphine IR 15 mg Tablet PO (00:21)
[2023-05-17 03:47] LABS: Basophils # 0.1 10^3/uL (0.0-0.1); Basophils % 0.7 %; Eosinophils # 0.4 10^3/uL (0.0-0.8); Eosinophils % 3.7 %; Hematocrit 27.2 % (37.0-47.0); Hemoglobin 8.2 g/dL (11.5-15.3); Lymphocytes # 1.8 10^3/uL (0.8-4.8); Lymphocytes % 18.8 %; Mean Corpuscular HGB Conc 30.1 g/dL (30.0-36.0); Mean Corpuscular Hemoglobin 26.9 pg (28.0-34.0); Mean Corpuscular Volume 89.2 fl (81-99); Mean Platelet Volume 9.6 fL (7.4-10.4); Monocytes # 0.8 10^3/uL (0.2-0.9); Monocytes % 8.3 %; Neutrophils # 5.51 10^3/uL (1.8-7.7); Neutrophils % 58.6 %; Nucleated Red Blood Cells % 0.2 %; Platelet Count 438 10^3/cmm (130-400); Red Blood Count 3.05 10^6/uL (4.1-5.3); Red Cell Distribution Width 16.1 % (12.1-15.1); White Blood Count 9.4 10^3/uL (4.0-10.0)
[2023-05-17] MEDS: piperacillin-tazobactam 4.5 GM in sodium chloride 0.9% (plus) 50 ML IV (04:13)
[2023-05-17 04:19] LABS: Slide Review Slide Review Perform
[2023-05-17 07:20] LABS: Glucose Point of Care 155 mg/dL (70-110)
--- NOTE | 2023-05-17 07:52 | P.ANESASSM_ITS ---
Pre-Anesthetic Assessment Height/Weight: Height 1.52 m Weight 74.344 kg Temp Pulse Resp BP Pulse Ox O2 Del Method O2 Flow Rate 98.6 F 81 17 91/62 93 Nasal Cannula 1 05/17/23 04:00 05/17/23 06:30 05/17/23 06:30 05/17/23 06:30 05/17/23 06:30 05/17/23 06:00 05/17/23 06:00 Operation Date: 05/17/23 08:00 Proposed Procedures p EGD(Not Applicable) - William Mir DO Familial anesthetic complications: None Was Beta Aline taken within 24 hours: N/A Was Clonidine taken within 24 hours: N/A Last intake: Intake Last Liquid Date 05/16/23 Last Liquid Time 23:30 Social No alcohol and No tobacco Exam alert, oriented x 3, clear to auscultation bilaterally and regular rate & rhythm Airway Mallampati: Class II Dentition: full CV/HEM Deep Vein Thrombosis and Hypertension GI Gi bleed Metabolic Diabetes Mellitus and Morbid Obesity Anesthetic Plan ASA status: 4 Anesthesia: MAC Risk of > 500 ml blood loss (7ml/kg in children): No Medications/Allergies Home Medications Medication Instructions Recorded Confirmed Last Taken Type acetaminophen 325 mg capsule 325 mg PO Q4H PRN fever or pain 04/03/22 05/11/23 Unknown Rx #60 caps escitalopram oxalate 20 mg tablet 20 mg PO DAILY #30 tabs 01/05/23 05/11/23 05/11/23 Rx lamotrigine 100 mg tablet 200 mg PO DAILY #60 tabs 01/05/23 05/11/23 05/11/23 Rx melatonin 10 mg tablet 10 mg PO BEDTIME 01/30/23 05/11/23 05/10/23 History cyclobenzaprine 10 mg tablet 10 mg PO TID PRN muscle spasm #20 05/10/23 05/11/23 Unknown Rx tabs methylprednisolone 4 mg tablets in See Rx Instructions PO PER PKG DIR 05/10/23 05/11/23 05/11/23 Rx a dose pack (Medrol ([place])) #21 ea bupropion HCl 75 mg tablet 75 mg PO QAM 05/11/23 05/11/23 05/11/23 History estradiol 0.5 mg tablet 0.5 mg PO DAILY 05/11/23 05/11/23 05/11/23 History glimepiride 2 mg tablet 2 mg PO DAILY 05/11/23 05/11/23 05/11/23 History ibuprofen 200 mg capsule 800 mg PO Q6H PRN Pain 05/11/23 05/11/23 05/10/23 History metformin 500 mg tablet 500 mg PO BID 05/11/23 05/11/23 05/11/23 History trazodone 100 mg tablet 100 mg PO QPM PRN insomnia 05/11/23 05/11/23 05/10/23 History Allergies Allergy/AdvReac Type Severity Reaction Status Date / Time No Known Allergies Allergy Verified 05/10/23 14:42 Current Medications Generic Name Dose Route Start Last Admin Trade Name Freq PRN Reason Stop Dose Admin Acetaminophen 650 mg 05/11/23 21:39 05/14/23 08:20 Acetaminophen 325 Mg Tablet PO 650 mg Q6H PRN Administration Mild/Mod Pain Or Temp >/= 101 Escitalopram Oxalate 20 mg 05/12/23 09:00 05/16/23 09:12 Escitalopram 10 Mg Tablet PO 20 mg DAILY LULÚ Administration Fenofibrate 145 mg 05/14/23 09:00 05/16/23 09:12 Fenofibrate 145 Mg Tablet PO 145 mg DAILY LULÚ Administration Fluticasone Propionate 1 spray 05/13/23 11:35 05/16/23 17:26 Fluticasone Nasal [place] 16gm Btl NASAL 1 spray BID LULÚ Administration Heparin Sodium (Porcine) 5,000 unit 05/12/23 19:00 05/13/23 06:22 Heparin 5,000 Unit/Ml Inj 1 Ml SUBCUT 5,000 unit Q12H LULÚ Administration Piperacillin Sod/Tazobactam 50 mls @ 12.5 mls/hr 05/15/23 12:00 05/17/23 04:13 Sod 4.5 gm/ Sodium Chloride IV 12.5 mls/hr Q8H LULÚ Administration Lamotrigine 200 mg 05/12/23 09:00 05/16/23 09:12 Lamotrigine 100 Mg Tablet PO 200 mg DAILY LULÚ Administration Morphine Sulfate 2 mg 05/11/23 21:39 05/16/23 21:42 Morphine 4 Mg/Ml Sdv 1 Ml IVP 2 mg Q4H PRN Administration SEVERE PAIN Morphine Sulfate 15 mg 05/13/23 11:31 05/17/23 00:21 Morphine Ir 15 Mg Tablet PO 15 mg Q4H PRN Administration SEVERE PAIN Non-Formulary Medication 75 mg 05/12/23 06:00 05/17/23 05:03 Bupropion Hcl PO Not Given QAM LULÚ Ondansetron HCl 4 mg 05/11/23 21:39 05/16/23 21:37 Ondansetron 2 Mg/Ml Sdv 2 Ml IVP 4 mg Q8H PRN Administration vomiting, or N/V if npo Pantoprazole Sodium 40 mg 05/11/23 21:45 05/16/23 21:08 Pantoprazole 40 Mg Sdv IVP 40 mg Q12H LULÚ Administration Trazodone HCl 100 mg 05/12/23 04:31 05/16/23 22:18 Trazodone 100 Mg Tablet PO 100 mg BEDTIME PRN Administration insomnia PFSH Anesthesia Medical History Bipolar II disorder DM type 2 (diabetes mellitus, type 2) [place] filter in place History of pulmonary embolus during History of tibial fracture Migraines Psychiatric care Surgical History History of section History of hysterectomy History of lithotripsy History of superior vena cava filter placement History of surgery on lower extremity repair of l tibia fracture, hardware in place Family History Grandmother Anesthesia complication maternal Diabetes maternal, maternal great Colon cancer paternal, age unknown Family/Other Hyperlipidemia maternal side Hypertension maternal side Thyroid condition nephew Mother Thyroid condition Sister Thyroid condition Grandfather Heart disease maternal and paternal Denies family history of Ovarian cancer Clotting disorder Breast cancer Bleeding disorder Uterine cancer Stroke Social History Smoking and tobacco status: never smoked Second hand smoke exposure: Yes Alcohol intake: current Alcohol intake frequency: holidays/special occasions only Marital status: Number of children: 4 Current occupational status: unemployed Agree to transfusion: Yes Data Anesthesia 05/17/23 02:41 05/16/23 02:45 Short CBC 05/15/23 05/16/23 05/16/23 Range/Units 11:24 02:45 12:06 WBC 8.5 (4.0-10.0) 10^3/uL Hgb 7.9 L 6.4 L* 8.0 L (11.5-15.3) g/dL Hct 26.3 L 21.7 L 26.2 L (37.0-47.0) % MCV 90.8 (81-99) fl Plt Count 340 (130-400) 10^3/cmm Neut % (Auto) 64.8 % Neut # (Auto) 5.48 (1.8-7.7) 10^3/uL 05/17/23 Range/Units 02:41 WBC 9.4 (4.0-10.0) 10^3/uL Hgb 8.2 L (11.5-15.3) g/dL Hct 27.2 L (37.0-47.0) % MCV 89.2 (81-99) fl Plt Count 438 H (130-400) 10^3/cmm Neut % (Auto) 58.6 % Neut # (Auto) 5.51 (1.8-7.7) 10^3/uL [facility] 05/16/23 02:45 Sodium 137 Potassium 3.9 Chloride 104 Carbon Dioxide 25 BUN 1 L Creatinine 0.3 L Glucose 130 H Calcium 7.4 L Liver Function 05/16/23 Range/Units 02:45 Total Bilirubin 0.2 (0.15-1.2) mg/dL AST 11 (0-32) U/L ALT 6 (0-33) U/L Alkaline Phosphatase 70 (35-105) U/L Albumin 2.4 L (3.5-5.2) g/dL Blood Bank 05/16/23 04:33 Blood Type O Positive Rho(D) Type Positive Antibody Screen Negative Cardiac Studies: No Data to Display
--- NOTE | 2023-05-17 08:02 | PM.PN ---
Vitals/I&O/Wt Last Vital Signs Temp 98.6 F 05/17/23 04:00 Pulse 81 05/17/23 06:30 Resp 17 05/17/23 06:30 BP 91/62 05/17/23 06:30 Pulse Ox 93 05/17/23 06:30 O2 Del Method Nasal Cannula 05/17/23 06:00 O2 Flow Rate 1 05/17/23 06:00 05/16/23 05/17/23 05/17/23 22:59 06:59 14:59 Intake Total 80 / 1506.517 50 / 1556.517 Balance 80 / 1206.517 50 / 1256.517 Data 05/17/23 02:41 05/16/23 02:45 A&P Assessment and plan (1) Pancreatitis: Qualifiers: Acute pancreatitis complication: unspecified Chronicity: acute Pancreatitis type: unspecified pancreatitis type Qualified Code(s): K85.90 - Acute pancreatitis without necrosis or infection, unspecified (2) Hypertriglyceridemia: (3) Acute on chronic anemia: (4) Hematemesis: Plan EGD The risks and benefits of the procedure, including bleeding, infection, intestinal perforation requiring surgery, missed lesion were explained to the patient. The patient is understanding of the risks and wishes to proceed. Attestations Medical Necessity Statement*: PER PRIMARY Coding Level of Care Code Acute Code for Chg Fwd Diagnoses Pancreatitis K85.90 Acute pancreatitis complication: unspecified Chronicity: acute Pancreatitis type: unspecified pancreatitis type Hypertriglyceridemia E78.1 Acute on chronic anemia D64.9 Hematemesis K92.0
[2023-05-17] MEDS: ondansetron 2 mg/ML SDV 2 mL 4 MG IVP (08:30)
[2023-05-17] MEDS: lamoTRIgine 100 mg Tablet 200 MG PO (10:27)
[2023-05-17] MEDS: escitalopram 10 mg Tablet 20 MG PO (10:27)
[2023-05-17] MEDS: fenofibrate 145 mg Tablet PO (10:27)
[2023-05-17] MEDS: FUROsemide 20 mg Tablet PO (10:28)
--- NOTE | 2023-05-17 11:19 | PC.NURSE ---
REceived patient back from GI lab at 0838. BP: 109/81, HR: 90, SPO2: 91%, RR 21. Patient can correctly answer person, place, time, and situation questions. Is slightly lethargic but is waking up.
--- NOTE | 2023-05-17 11:31 | P.DS_ITS ---
Discharge Providers Date of Admission: 05/11/23 21:41 Date of Discharge: May 17, 2023 Attending Provider at Admission: Dorota Kohler MD Attending Provider at Discharge: Harrison Delgado MD Primary Care Provider: Cristina Cloud MD Diagnoses at Discharge Discharge Diagnosis (1) Pancreatitis: Status: Acute Qualifiers: Acute pancreatitis complication: unspecified Chronicity: acute Pancreatitis type: unspecified pancreatitis type Qualified Code(s): K85.90 - Acute pancreatitis without necrosis or infection, unspecified (2) Hypertriglyceridemia: Status: Acute (3) Acute on chronic anemia: Status: Acute (4) Hematemesis: Status: Acute Reason for Visit Reason for Visit: sent by dr cloud/nicole/abd pain/vomiting blood Hospital Course Hospital Course 43-year female with type 2 diabetes, stopped taking fenofibrate, presented with otitis related to hypertriglyceridemia, it took 5 days to correct her hypertriglyceridemia to bring it below 500 with insulin running at 7 units, 0.1 unit/kg/h, fenofibrate added, her hospitalization was noticeable for acute drop in hemoglobin no active bleeding noted other than 1 episode of hematemesis, FOBT negative, does take Excedrin for her migraine on daily basis Dr. Mir consulted for EGD because repeat CT scan did show worsening of edema around pancreas and a lot of fluid collection in fundus of stomach, EGD showed gastritis (likely Excedrin induced ) and lot of bile content in her stomach patient is tolerating clear liquid diet, she will get omeprazole at the time of discharge along fenofibrate. Patient has been counseled to avoid eating at fast food restaurants staying consistent with fenofibrate avoiding alcohol etc. Patient required 2 L of oxygen because of all the fluid she received she was g iven Lasix, home oxygen evaluation requested before discharge Physical Exam Narrative: Awake and alert Currently on 1.5 L GCS 15 Nonfocal neuro exam Abdomen distended after EGD Passing flatus No active nausea or vomiting Discharge Data Studies Completed and Pending Completed Studies During Hospitalization Category Date Time Status CT abdomen pelvis w con* [id number] Stat Cat Scan 05/11/23 15:[address] abdomen w con* [id number] Routine Cat Scan 05/14/23 10:20 Completed Pending at discharge Category Date Time Status Pathology: Surgical [PTH] Routine Pth 05/17/23 08:14 Ordered Radiology Impressions Abdomen/Pelvis CT 05/11/23 15:39 IMPRESSION: 1. Interval development of mild peripancreatic ascites presumed secondary to acute pancreatitis. Please correlate with appropriate laboratory parameters. 2. Hepatomegaly with diffuse fatty infiltration, stable. 3. Mild splenomegaly unchanged. 4. Moderate degree of retained stool throughout the large bowel that may reflect some degree of constipation. 5. Additional nonemergent findings as above. The COMMENTS: For patients with an IVC filter, recommend assessment for a management plan for the patient's IVC filter. If there is no established management plan, recommend referral to an interventional clinician on a nonemergent basis for evaluation. Abdomen CT 05/14/23 10:20 IMPRESSION: 1. There is a history of pancreatitis provided with some progressive inflammatory stranding and phlegmon type appearance extending both central inferiorly as well as of the periportal and perigastric margins with no internal air-fluid levels currently appreciated. 2. In the interval there are small pleural effusions demonstrated along with some early patchy atelectasis or inflammatory appearance of the lung bases with no lobar type consolidation currently appreciated. COMMENTS: For patients with an IVC filter, recommend assessment for a management plan for the patient's IVC filter. If there is no established management plan, recommend referral to an interventional clinician on a nonemergent basis for evaluation. Laboratory Results WBC 9.4 10^3/uL (4.0-10.0) 05/17/23 02:41 RBC 3.05 10^6/uL (4.1-5.3) L 05/17/23 02:41 Hgb 8.2 g/dL (11.5-15.3) L 05/17/23 02:41 Hct 27.2 % (37.0-47.0) L 05/17/23 02:41 MCV 89.2 fl (81-99) 05/17/23 02:41 MCH 26.9 pg (28.0-34.0) L 05/17/23 02:41 MCHC 30.1 g/dL (30.0-36.0) 05/17/23 02:41 RDW 16.1 % (12.1-15.1) H 05/17/23 02:41 Plt Count 438 10^3/cmm (130-400) H 05/17/23 02:41 MPV 9.6 fL (7.4-10.4) 05/17/23 02:41 Neut % (Auto) 58.6 % 05/17/23 02:41 Lymph % (Auto) 18.8 % 05/17/23 02:41 Butts % (Auto) 8.3 % 05/17/23 02:41 Eos % (Auto) 3.7 % 05/17/23 02:41 Baso % (Auto) 0.7 % 05/17/23 02:41 Neut # (Auto) 5.51 10^3/uL (1.8-7.7) 05/17/23 02:41 Lymph # (Auto) 1.8 10^3/uL (0.8-4.8) 05/17/23 02:41 Butts # (Auto) 0.8 10^3/uL (0.2-0.9) 05/17/23 02:41 Eos # (Auto) 0.4 10^3/uL (0.0-0.8) 05/17/23 02:41 Baso # (Auto) 0.1 10^3/uL (0.0-0.1) 05/17/23 02:41 Nucleated RBC % (auto) 0.2 % 05/17/23 02:41 Nucleated RBCs # 0.0 /100WBC 05/17/23 02:41 PT 12.90 SECONDS (12.1-14.9) 05/11/23 14:20 INR 0.94 (0.8-1.2) 05/11/23 14:20 APTT 32.0 SECONDS (23.9-36.7) 05/11/23 14:20 Sodium 137 mmol/L (136-145) 05/16/23 02:45 Potassium 3.9 mmol/L (3.5-5.1) 05/16/23 02:45 Chloride 104 mmol/L (98-107) 05/16/23 02:45 Carbon Dioxide 25 mmol/L (22-29) 05/16/23 02:45 Anion Gap 11.9 (5-19) 05/16/23 02:45 BUN 1 mg/dL (6-20) L 05/16/23 02:45 Creatinine 0.3 mg/dL (0.5-0.9) L 05/16/23 02:45 GFR Calculation 245.2 mL/min (90-130) H 05/16/23 02:45 Glucose 130 mg/dL (65-115) H 05/16/23 02:45 POC Glucose 155 mg/dL (70-110) H 05/17/23 07:09 Estimat Average Glucose 177 05/12/23 03:57 Hemoglobin A1c 7.8 % (4.0-6.0) H 05/12/23 03:57 Calculated Osmolality 282 mOsm/kg (285-295) L 05/16/23 02:45 Calcium 7.4 mg/dL (8.5-10.5) L 05/16/23 02:45 Magnesium 1.9 mg/dL (1.7-2.3) 05/13/23 03:19 Iron 16 ug/dL (37-145) L 05/13/23 15:42 TIBC 213 mcg/dl 05/13/23 15:42 % Saturation 7.5 % (20-50) L 05/13/23 15:42 Unsat Iron Binding 197 ug/dL (112-347) 05/13/23 15:42 Ferritin 340 ng/mL (15-150) H 05/13/23 15:42 Total Bilirubin 0.2 mg/dL (0.15-1.2) 05/16/23 02:45 AST 11 U/L (0-32) 05/16/23 02:45 ALT 6 U/L (0-33) 05/16/23 02:45 Alkaline Phosphatase 70 U/L (35-105) 05/16/23 02:45 Total Protein 5.5 g/dL (6.6-8.7) L 05/16/23 02:45 Albumin 2.4 g/dL (3.5-5.2) L 05/16/23 02:45 Globulin 3.1 g/dL (1.3-4.6) 05/16/23 02:45 Triglycerides 413 mg/dL (0-150) H 05/16/23 02:45 Cholesterol 1174 mg/dL (0-200) H 05/11/23 14:20 Cholesterol Cancelled 05/11/23 14:20 LDL Cholesterol Direct 211 mg/dL (0-100) H 05/16/23 02:45 LDL Cholesterol, Calc Cancelled 05/11/23 14:20 LDL Cholesterol, Calc Wall And Floor Tiler 05/11/23 14:20 HDL Cholesterol 10 mg/dL (60-100) L 05/11/23 14:20 HDL Cholesterol Cancelled 05/11/23 14:20 LDL/HDL Ratio 4.50 RATIO (0.00-3.22) H 05/11/23 14:20 LDL/HDL Ratio Cancelled 05/11/23 14:20 Cholesterol/HDL Ratio 117.40 mg/dL (0.0-4.40) H 05/11/23 14:20 Cholesterol/HDL Ratio Cancelled 05/11/23 14:20 Amylase 31 U/L (28-100) 05/12/23 03:57 Lipase 48 U/L (13-60) 05/12/23 03:57 Vitamin B12 301 pg/mL (232-1245) 05/13/23 15:42 HCG, Qual Negative (Negative) 05/11/23 14:20 Urine Color Yellow (Yellow) 05/11/23 15:02 Urine Appearance Clear (CLEAR) 05/11/23 15:02 Urine pH 5 (5-7) 05/11/23 15:02 Ur Specific [place] 1.020 (1.005-1.030) 05/11/23 15:02 Urine Protein 3+ (Negative) H 05/11/23 15:02 Urine Glucose (UA) 4+ (Normal) H 05/11/23 15:02 Urine Ketones 3+ (Negative) H 05/11/23 15:02 Urine Blood Neg (Negative) 05/11/23 15:02 Urine Nitrate Negative (Negative) 05/11/23 15:02 Urine Bilirubin 1+ (Negative) H 05/11/23 15:02 Urine Urobilinogen Norm mg/dL (Negative) 05/11/23 15:02 Ur Leukocyte Esterase Negative (Negative) 05/11/23 15:02 Urine RBC None /hpf (0-2) 05/11/23 15:02 Urine WBC 5-10 /hpf (0-5) H 05/11/23 15:02 Ur Squamous Epith Cells 10-15 /hpf (0-5) H 05/11/23 15:02 Amorphous Sediment Not Reportable 05/11/23 15:02 Urine Bacteria 2+ /hpf (NONE) H 05/11/23 15:02 Hyaline Casts 0-4 /lpf H 05/11/23 15:02 Blood Type O Positive 05/16/23 04:33 Rho(D) Type Positive 05/16/23 04:33 Antibody Screen Negative 05/16/23 04:33 Crossmatch See Detail 05/16/23 04:33 Vitals Last Vital Signs Temp 97.1 F L 05/17/23 07:30 Pulse 80 05/17/23 11:00 Resp 22 H 05/17/23 11:00 BP 122/77 05/17/23 11:00 Pulse Ox 94 05/17/23 11:00 O2 Del Method Nasal Cannula 05/17/23 11:00 O2 Flow Rate 2 05/17/23 11:00 Discharge Plan Discharge Patient Disposition: Home Condition: Stable Prescriptions: New fenofibrate 160 mg tablet 160 mg PO DAILY Qty: 90 5RF pantoprazole [Protonix] 40 mg tablet,delayed release (DR/EC) 40 mg PO BID 42 Days Qty: 84 0RF Continued escitalopram oxalate 20 mg tablet 20 mg PO DAILY Qty: 30 1RF lamotrigine 100 mg tablet 200 mg PO DAILY Qty: 60 1RF Rx Instructions: Take two tablets daily melatonin 10 mg tablet 10 mg PO BEDTIME cyclobenzaprine 10 mg tablet 10 mg PO TID PRN (Reason: muscle spasm) Qty: 20 0RF acetaminophen 325 mg capsule 325 mg PO Q4H PRN (Reason: fever or pain) Qty: 60 0RF metformin 500 mg tablet 500 mg PO BID trazodone 100 mg tablet 100 mg PO QPM PRN (Reason: insomnia) Rx Instructions: Take 1/2 to 1 tablet daily at bedtime, if needed for sleep bupropion HCl 75 mg tablet 75 mg PO QAM Rx Instructions: Take one tablet by mouth every morning estradiol 0.5 mg tablet 0.5 mg PO DAILY glimepiride 2 mg tablet 2 mg PO DAILY Discontinued methylprednisolone [Medrol ([place])] 4 mg tablets,dose pack See Rx Instructions PO PER PKG DIR Qty: 21 0RF Rx Instructions: PO PER PKG DIR ibuprofen 200 mg Capsule 800 mg PO Q6H PRN (Reason: Pain) Discharge Orders: Discharge Order (Routine); Ordered 05/17/23 Ordered By: Harrison Delgado Referrals: Cristina Cloud MD [Primary Care Provider] - Discharge Diet: Full LIquid Discharge Activity: Increase activity as tolerated Patient Instructions: GI Discharge Instructions, Opioid Safety Discharge Attestations Time Spent in Discharge Care*: greater than 30 min Quality Metrics Clinical Quality Measures [ No reported AMI, CVA or VTE this stay] Coding Level of Care Code Acute Code for Chg Fwd Diagnoses Pancreatitis K85.90 Acute pancreatitis complication: unspecified Chronicity: acute Pancreatitis type: unspecified pancreatitis type Hypertriglyceridemia E78.1 Acute on chronic anemia D64.9 Hematemesis K92.0
--- NOTE | 2023-05-17 12:47 | XRR_ITS ---
PROCEDURE INFORMATION: Exam: XR Chest Exam date and time: 05/17/2023 1:19 PM Age: 43 years old Clinical indication: Other: Hypoxia. Previous history of pancreatitis. No history of trauma or recent surgery is provided. TECHNIQUE: Imaging protocol: Radiologic exam of the chest. 1image(s) are provided. Views: 1 view. COMPARISON: 1. CR XR chest 1V portable [id number] 11/19/2019 8:[address] abdomen w con* [id number] 05/14/2023 2:02 PM FINDINGS: Lungs: There is some patchy atelectatic consolidation of the lung bases left more so than right appearing slightly increased indicative some interval progression. Pleural spaces: There is pleural fluid blunting the costophrenic angles. No pneumothorax is appreciated. Heart/Mediastinum: The cardiomediastinal silhouette is upper normal in size.This can be seen with central averaging as well as oralia enlargement.No cardiac decompensation is appreciated. Diaphragm: The left hemidiaphragm is obscured. Bones/joints: Osseous alignment is maintained.No interval displaced fracture or dislocation is appreciated. Soft tissues: No radiopaque foreign body or subcutaneous emphysema is appreciated. There is some skin fold averaging. Other findings: No other significant interval changes are appreciated. XR/XR chest 1V portable [id number] IMPRESSION: There is some interval progressive inflammatory type appearance of the lung bases left more so than right with pleural fluid blunting the costophrenic angles.
--- NOTE | 2023-05-17 12:50 | P.MISC_ITS ---
Miscellaneous Note Purpose of Documentation: Mrs. Pugh was admitted in the hospital on 05/11 for her persistent nausea vomiting related to pancreatitis she is being discharged on 05/17 from the ICU, she is requiring 3 L of oxygen, she will stay off work until next week, should you have any questions please do not hesitate to call the hospitalist department at the [facility].
--- NOTE | 2023-05-17 14:00 | PC.NURSE ---
Patient discharged. Home oxygen has been set up and portable tank provided to patient. O2 turned on for ride home. Prescriptions sent to pharmacy. New medication and appointment education provided. ICU press secretary was unable to schedule a followup appointment due to it being thursday. Patient provided instructions and contact info to arrange appointment on thursday.
== END 2023-05-17 14:12 | disposition home or self-care (01) | DRG 438 ==
LOC: ER 19:48 → ICU 21:41
PROVIDERS: Physician Assistant; Surgery; Admitting Provider Student in an Organized Health Care Education/Training Program; Emergency Provider Emergency Medicine; PCP Family Medicine; Visit Provider Internal Medicine
PROC: 0DJ08ZZ Inspection of Upper Intestinal Tract, Via Natural or Artificial Opening Endoscopic (ICD-10-PCS; CPT 43235; principal; 2023-05-17 08:00)
DX: K85.80 Other acute pancreatitis without necrosis or infection (principal); K29.51 Unspecified chronic gastritis with bleeding; E87.1 Hypo-osmolality and hyponatremia; F31.81 Bipolar II disorder; E11.65 Type 2 diabetes mellitus with hyperglycemia; E78.1 Pure hyperglyceridemia; D64.9 Anemia, unspecified; T39.015A Adverse effect of aspirin, initial encounter; Z79.84 Long term (current) use of oral hypoglycemic drugs; Z79.890 Hormone replacement therapy; T46.6X6A Underdosing of antihyperlipidemic and antiarteriosclerotic drugs, initial encounter; Z86.711 Personal history of pulmonary embolism; G43.909 Migraine, unspecified, not intractable, without status migrainosus; E86.0 Dehydration; Z95.828 Presence of other vascular implants and grafts
CPT/HCPCS: 36415; 36416; 36430; 43239; 71045; 74160; 74177; 80053; 80061; 81001; 82150; 82274; 82607; 82728; 82962; 83036; 83540; 83550; 83690; 83721; 83735; 84478; 84703; 85014; 85018; 85025; 85610; 85730; 86850; 86900; 86920; 88305; 88342; 94760; 96372; 96374; 96375; 96376; 99285; C9113; J1644; J1815; J1885; J2270; J2405; J2543; J2704; J7030; J7042; J7050; P9016; Q9967

== ENCOUNTER → 2023-06-01 15:49 | Outpatient (BNVA) | payer BC, MEDICAID, SELFPAY | PROVIDERS: PCP Family Medicine; Visit Provider Family Medicine | DX: D64.9 Anemia, unspecified (principal) | CPT/HCPCS: 85025 ==

== ENCOUNTER 2023-06-12 19:50 | Emergency (ER) | payer BC, MEDICAID, SELFPAY ==
[2023-06-12 19:51] VITALS: BP 154/90; PULSE 117; RESP 17; TEMP 37.1; O2SAT 97; BMI 35.2
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
== END 2023-06-12 21:00 | disposition home or self-care (01) ==
PROVIDERS: Emergency Provider Emergency Medicine; PCP Family Medicine
DX: S16.1XXA Strain of muscle, fascia and tendon at neck level, initial encounter (principal); Z79.84 Long term (current) use of oral hypoglycemic drugs; Z77.22 Contact with and (suspected) exposure to environmental tobacco smoke (acute) (chronic); E11.9 Type 2 diabetes mellitus without complications; E78.5 Hyperlipidemia, unspecified; V89.2XXA Person injured in unspecified motor-vehicle accident, traffic, initial encounter
CPT/HCPCS: 71045; 72040; 73030; 99284

== ENCOUNTER 2023-07-16 19:59 | Emergency (ER) | payer BC, MEDICAID, SELFPAY ==
[2023-07-16 20:10] VITALS: BP 116/76; PULSE 98; RESP 18; TEMP 36.4; O2SAT 95; BMI 30.2
== END 2023-07-16 21:18 | disposition left against medical advice (07) ==
PROVIDERS: Emergency Provider Family Medicine; PCP Family Medicine
DX: Z53.21 Procedure and treatment not carried out due to patient leaving prior to being seen by health care provider (principal)

== ENCOUNTER 2024-10-07 07:19 | Outpatient (CLI) | payer BC, SELFPAY ==
[2024-10-07 08:14] LABS: Albumin Level 4.3 g/dL (3.5-5.2); Alkaline Phosphatase 86 U/L (35-105); Aspartate Amino Transferase 10 U/L (0-32); Blood Urea Nitrogen 16 mg/dL (6-20); Calcium 9.1 mg/dL (8.5-10.5); Carbon Dioxide 20 mmol/L (22-29); Chloride 105 mmol/L (98-107); Chol HDL Ratio 4.14 mg/dL (0.0-4.40); Cholesterol 145 mg/dL (0-200); Globulin 2.4 g/dL (1.3-4.6); Glomerular Filtration Rate 135.3 mL/min (90-130); Glucose 175 mg/dL (65-115); HDL Cholesterol 35 mg/dL (60-100); LDL Cholesterol Calculated 70 mg/dL (50-129); Osmolality Calculated 289 mOsm/kg (285-295); Sodium 137 mmol/L (136-145); Total Bilirubin 0.2 mg/dL (0.15-1.2); Total Protein 6.7 g/dL (6.6-8.7); Triglycerides 200 mg/dL (0-150)
[2024-10-07 08:18] LABS: Creatinine Urine, Random 115 mg/dL (28-217); Microalbum Creatinine Ratio Ur 9 mg/dL (0-20); Microalbumin Random Urine 1 ug/dL (0-20)
[2024-10-07 08:20] LABS: Estmated Average Glucose 154
[2024-10-07 08:26] LABS: Alanine Aminotransferase 20 U/L (0-33)
== END 2024-10-07 07:20 | disposition home or self-care (01) ==
LOC: LAB 07:23
PROVIDERS: PCP Nurse Practitioner Family; Visit Provider Internal Medicine
DX: E10.9 Type 1 diabetes mellitus without complications (principal); E78.2 Mixed hyperlipidemia
CPT/HCPCS: 36415; 80053; 80061; 82044; 83036

== ENCOUNTER 2024-12-30 09:04 | Outpatient (CLI) | payer BC, SELFPAY ==
[2024-12-30 09:56] LABS: Estmated Average Glucose 134; Hemoglobin A1C 6.3 % (4.0-6.0)
[2024-12-30 10:01] LABS: Creatinine Urine, Random 122 mg/dL (28-217); Microalbum Creatinine Ratio Ur 16 mg/dL (0-20); Microalbumin Random Urine 2 ug/dL (0-20)
[2024-12-30 10:02] LABS: Alanine Aminotransferase 11 U/L (0-33); Albumin Level 4.2 g/dL (3.5-5.2); Alkaline Phosphatase 95 U/L (35-105); Anion Gap 14.8 (5-19); Aspartate Amino Transferase 8 U/L (0-32); Blood Urea Nitrogen 12 mg/dL (6-20); Calcium 9.3 mg/dL (8.5-10.5); Carbon Dioxide 19 mmol/L (22-29); Chloride 106 mmol/L (98-107); Cholesterol 144 mg/dL (0-200); Globulin 3.1 g/dL (1.3-4.6); Glomerular Filtration Rate 109.6 mL/min (90-130); Glucose 131 mg/dL (65-115); HDL Cholesterol 32 mg/dL (60-100); LDL Cholesterol Calculated 61 mg/dL (50-129); LDL HDL Ratio 1.91 RATIO (0.00-3.22); Osmolality Calculated 284 mOsm/kg (285-295); Potassium 3.8 mmol/L (3.5-5.1); Sodium 136 mmol/L (136-145); Total Bilirubin 0.3 mg/dL (0.15-1.2); Total Protein 7.3 g/dL (6.6-8.7); Triglycerides 257 mg/dL (0-150)
== END 2024-12-30 09:05 | disposition home or self-care (01) ==
PROVIDERS: PCP Nurse Practitioner Family; Visit Provider Internal Medicine
DX: E78.2 Mixed hyperlipidemia (principal); E10.9 Type 1 diabetes mellitus without complications
CPT/HCPCS: 36415; 80053; 80061; 82044; 83036

== ENCOUNTER 2025-05-04 07:19 | Outpatient (CLI) | payer BC, SELFPAY ==
[2025-05-04 08:04] LABS: Estmated Average Glucose 148; Hemoglobin A1C 6.8 % (4.0-6.0)
[2025-05-04 08:11] LABS: Alanine Aminotransferase < 5 U/L (0-33); Albumin Level 4.2 g/dL (3.5-5.2); Alkaline Phosphatase 98 U/L (35-105); Anion Gap 18.4 (5-19); Aspartate Amino Transferase 17 U/L (0-32); Blood Urea Nitrogen 18 mg/dL (6-20); Calcium 9.2 mg/dL (8.5-10.5); Carbon Dioxide 20 mmol/L (22-29); Chloride 105 mmol/L (98-107); Cholesterol 177 mg/dL (0-200); Globulin 3.2 g/dL (1.3-4.6); Glucose 154 mg/dL (65-115); HDL Cholesterol 34 mg/dL (60-100); Osmolality Calculated 293 mOsm/kg (285-295); Potassium 4.4 mmol/L (3.5-5.1); Sodium 139 mmol/L (136-145); Total Protein 7.4 g/dL (6.6-8.7); Triglycerides 356 mg/dL (0-150)
[2025-05-04 08:12] LABS: Creatinine Urine, Random 153 mg/dL (28-217); Microalbum Creatinine Ratio Ur 20 mg/dL (0-20)
== END 2025-05-04 07:20 | disposition home or self-care (01) ==
LOC: LAB 07:20
PROVIDERS: PCP Nurse Practitioner Family; Visit Provider Internal Medicine
DX: E10.9 Type 1 diabetes mellitus without complications (principal); E78.2 Mixed hyperlipidemia
CPT/HCPCS: 36415; 80053; 80061; 82044; 83036